=== PATIENT | male | born 1960 | race Caucasian/White ===

== ENCOUNTER → 2024-02-01 11:36 | Outpatient (REF) | payer OTHER, SELFPAY | LOC: RAD 11:36 | PROVIDERS: ATTENDING PHYSICIAN Physician Assistant; FAMILY PHYSICIAN Physician Assistant Medical | DX: M54.16 Radiculopathy, lumbar region (principal) | CPT/HCPCS: 72110 ==

== ENCOUNTER → 2024-03-21 07:07 | Outpatient (REF) | payer OTHER, SELFPAY | LOC: RAD 07:07 | PROVIDERS: ATTENDING PHYSICIAN Neurological Surgery; FAMILY PHYSICIAN Physician Assistant Medical | DX: M54.16 Radiculopathy, lumbar region (principal); M43.16 Spondylolisthesis, lumbar region | CPT/HCPCS: 72131; 72148 ==

== ENCOUNTER 2024-04-29 12:13 | Emergency (ER) | payer OTHER, SELFPAY ==
[2024-04-29 12:19] VITALS: BP 145/70
[2024-04-29 12:36] VITALS: BMI 27.4
[2024-04-29] MEDS: REGLAN 10 MG IV (13:20)
[2024-04-29] MEDS: NSS 500 IV (13:21)
[2024-04-29 13:32] LABS: % Basophils 0.2 % (0-2); % Immature Granulocytes 0.5 % (0-0.5); % Lymphocytes 6.7 % (20.5-51.1); % Monocytes 4.7 % (1.7-9.3); % Neutrophils 87.9 % (42.2-75.2); Absolute Immature Granulocytes 0.1 10^3/uL (0-0.05); Absolute Monocytes 0.7 10^3/uL (0.1-0.6); Absolute Neutrophils 13.5 10^3/uL (1.4-6.5); Hematocrit 37.4 % (39.0-52.0); Hemoglobin 12.9 g/dL (13.0-18.0); Mean Corp Hgb Conc. 34.5 g/dL (33.0-37.0); Mean Corpuscular Hgb 27.7 pg (27.0-31.0); Mean Corpuscular Volume 80.4 fL (80.0-94.0); Mean Platelet Volume 8.8 fL (7.4-10.4); Nucleated Red Blood Cells % 0 % (-); Platelet Count 305 10^3/uL (130-400); Red Blood Cell Count 4.65 10^6/uL (4.70-6.10); Red Cell Dist. Width 14.2 % (11.5-14.5); White Blood Cell Count 15.3 10^3/uL (4.8-10.8)
[2024-04-29 13:37] LABS: ALT (SGPT) 18 U/L (0-50); AST (SGOT) 25 U/L (17-59); Albumin 4.4 g/dl (3.5-5.0); Alkaline Phosphatase 93 U/L (38-126); Blood Urea Nitrogen 22 mg/dl (9-20); Calcium 9.7 mg/dl (8.4-10.2); Carbon Dioxide 28 mmol/L (22-30); Chloride 103 mmol/L (98-107); Estimated Creatinine Clearance 88 ml/min; Glucose 119 mg/dl (70-99); Potassium 4.4 mmol/L (3.5-5.1); Sodium 142 mmol/L (135-145); Total Bilirubin 0.5 mg/dl (0.2-1.3); Total Protein 6.7 g/dl (6.3-8.2); eGFR > 60.00
[2024-04-29 13:49] LABS: INR 1.01; PT 13.1 Sec (11.4-14.6)
[2024-04-29 13:50] LABS: APTT 31.4 Sec (23.4-35.0)
[2024-04-29 14:00] VITALS: BP 140/75
[2024-04-29 14:47] VITALS: BP 154/65
[2024-04-29 15:14] VITALS: BP 134/74
[2024-04-29] MEDS: TORADOL 30 MG IV (15:23)
[2024-04-29] MEDS: DILAUDID 1 MG IV (15:30)
[2024-04-29] MEDS: DECADRON 10 MG IV (15:43)
[2024-04-29] MEDS: ZOFRAN 4 MG IV (15:44)
[2024-04-29 15:59] LABS: COVID-19 Antigen Negative (Negative)
[2024-04-29 16:00] VITALS: BP 132/70
--- NOTE | 2024-04-29 16:56 | ED.GENMED ---
History of Present Illness
<Chidi Yu MD - Last Filed: 05/02/24 08:33>
General
Chief Complaint: Headache
Time Seen by Provider: 04/29/24 12:33
<Javid Alcocer Jr., PA-C - Last Filed: 05/01/24 15:40>
General
Source: patient
Exam Limitations: none
Nursing documentation reviewed up to this point in time: agreed with
History of Present Illness
History of Present Illness:
63-year-old male with past medical history of previous back surgery at [place] 4 weeks ago multiple neck surgeries in the past anxiety depression nerve stimulator to the right buttock presenting to the emergency department today with concerns of
headache back discomfort. Headache mainly last few hours associated nausea no vomiting no numbness or weakness no chest pain shortness of breath some light sensitivity.
Past History
<Chidi Yu MD - Last Filed: 05/02/24 08:33>
Past History
ED Past Medical History: Other (Pancreatitis) and Other (Patient has had degenerative disc disease of the neck, with resultant radiculopathy. The patient also has chronic pain issues.)
ED Past Surgical History: Other (The patient has had multiple cervical surgeries)
Social History
Tobacco: Smoker
Alcohol: Occasional
Personal:
Living: with family
Employment: Employed
Review of Systems
<Javid Alcocer Jr., PA-C - Last Filed: 05/01/24 15:40>
Review of Systems
Allergies reviewed?: Yes
All Other Systems: ROS reviewed and negative except as documented in HPI and ROS
Phy Exam
<Javid Alcocer Jr., PA-C - Last Filed: 05/01/24 15:40>
Physical Exam
Physical Exam:
GENERAL: Alert , in no apparent distress
EYE: pupils equal and reactive
NECK: Supple, no significant adenopathy.
ENT: o/p clr, mmm.
CARDIAC: Regular rate and rhythm .
LUNGS: Clear breath sounds bilaterally, no acute respiratory distress, no wheezes/rales/rhonchi
ABDOMEN: Soft, without focal tenderness, no r/g, no cvat
NEUROLOGICAL: Alert and oriented, no focal neuro deficits 5 out of 5 upper and lower extremity strength normal sensation when palpating bilaterally normal finger-nose and ceat-oe-tpep no pronator drift
SKIN: Warm and dry, skin intact.
MUSCULOSKELETAL: No edema, well perfused.
PSYCH: Normal and appropriate interaction.
Course
<Chidi Yu MD - Last Filed: 05/02/24 08:33>
Orders/Labs/Results
Orders:
Orders
04/29/24 12:44
Electrocardiogram (*1) Stat
Reason for Study: Other
Other Reason for Exam: Headache
CT Head & Neck Angio W/wo IV Urgent
Reason For Exam: severe GONSALEZ, for afew hours, worst of life
Cardiac Monitoring- Treatment ONCE
EKG- Treatment ONCE
0.9% Sodium Chloride 500 ml [Nss] 500 ml IV BOLUS
Metoclopramide [Reglan] 10 mg IV NOW STA
04/29/24 13:17
Complete Blood Count/With Diff Urgent
Comprehensive Metabolic Panel Urgent
Lyme Progressive Urgent
PTT Urgent
Prothrombin Time Urgent
04/29/24 15:20
Ketorolac [Toradol] 30 mg IV NOW STA
04/29/24 15:27
HYDROmorphone [Dilaudid] 1 mg IV NOW STA
04/29/24 15:31
Dexamethasone Sod Phosphate [Decadron] 10 mg IV NOW STA
04/29/24 15:38
COVID-19 Antigen Urgent
Source: Nasal Swab
Ondansetron Injectable [Zofran] 4 mg IV NOW STA
Abnormal Lab Results
04/29/24
13:17
WBC 15.3 H 10^3/uL
(4.8-10.8)
RBC 4.65 L 10^6/uL
(4.70-6.10)
Hgb 12.9 L g/dL
(13.0-18.0)
Hct 37.4 L %
(39.0-52.0)
Abs Immat Gran (auto) 0.1 H 10^3/uL
(0-0.05)
Absolute Neuts (auto) 13.5 H 10^3/uL
(1.4-6.5)
Absolute Lymphs (auto) 1.0 L 10^3/uL
(1.2-3.4)
Absolute Monos (auto) 0.7 H 10^3/uL
(0.1-0.6)
Neutrophils % 87.9 H %
(42.2-75.2)
Lymphocytes % 6.7 L %
(20.5-51.1)
BUN 22 H mg/dl
(9-20)
Glucose 119 H mg/dl
(70-99)
04/29/24 13:17
04/29/24 13:17
Vital Signs
Initial and Last Documented VS:
Initial Vital Signs
Temp Pulse Resp BP Pulse Ox
98.1 F 66 16 145/70 98
04/29/24 12:19 04/29/24 12:19 04/29/24 12:19 04/29/24 12:19 04/29/24 12:19
Last Documented Vital Signs
Temp Pulse Resp BP Pulse Ox
98.7 F 63 16 132/70 97
04/29/24 16:00 04/29/24 17:05 04/29/24 17:05 04/29/24 16:00 04/29/24 16:00
<Javid Alcocer Jr., PA-C - Last Filed: 05/01/24 15:40>
Orders/Labs/Results
Orders:
Orders
04/29/24 12:44
Electrocardiogram (*1) Stat
Reason for Study: Other
Other Reason for Exam: Headache
CT Head & Neck Angio W/wo IV Urgent
Reason For Exam: severe GONSALEZ, for afew hours, worst of life
Cardiac Monitoring- Treatment ONCE
EKG- Treatment ONCE
0.9% Sodium Chloride 500 ml [Nss] 500 ml IV BOLUS
Metoclopramide [Reglan] 10 mg IV NOW STA
04/29/24 13:17
Complete Blood Count/With Diff Urgent
Comprehensive Metabolic Panel Urgent
Lyme Progressive Urgent
PTT Urgent
Prothrombin Time Urgent
04/29/24 15:20
Ketorolac [Toradol] 30 mg IV NOW STA
04/29/24 15:27
HYDROmorphone [Dilaudid] 1 mg IV NOW STA
04/29/24 15:31
Dexamethasone Sod Phosphate [Decadron] 10 mg IV NOW STA
04/29/24 15:38
COVID-19 Antigen Urgent
Source: Nasal Swab
Ondansetron Injectable [Zofran] 4 mg IV NOW STA
Abnormal Lab Results
04/29/24
13:17
WBC 15.3 H 10^3/uL
(4.8-10.8)
RBC 4.65 L 10^6/uL
(4.70-6.10)
Hgb 12.9 L g/dL
(13.0-18.0)
Hct 37.4 L %
(39.0-52.0)
Abs Immat Gran (auto) 0.1 H 10^3/uL
(0-0.05)
Absolute Neuts (auto) 13.5 H 10^3/uL
(1.4-6.5)
Absolute Lymphs (auto) 1.0 L 10^3/uL
(1.2-3.4)
Absolute Monos (auto) 0.7 H 10^3/uL
(0.1-0.6)
Neutrophils % 87.9 H %
(42.2-75.2)
Lymphocytes % 6.7 L %
(20.5-51.1)
BUN 22 H mg/dl
(9-20)
Glucose 119 H mg/dl
(70-99)
04/29/24 13:17
04/29/24 13:17
Vital Signs
Initial and Last Documented VS:
Initial Vital Signs
Temp Pulse Resp BP Pulse Ox
98.1 F 66 16 145/70 98
04/29/24 12:19 04/29/24 12:19 04/29/24 12:19 04/29/24 12:19 04/29/24 12:19
Last Documented Vital Signs
Temp Pulse Resp BP Pulse Ox
98.7 F 63 16 132/70 97
04/29/24 16:00 04/29/24 17:05 04/29/24 17:05 04/29/24 16:00 04/29/24 16:00
<Javid Alcocer Jr., PA-C - Last Filed: 05/01/24 15:40>
MDM/Problems Addressed
MDM/Problems Addressed:
63-year-old male presenting to the emergency department with concerns of headache described as mainly frontal with some radiation to the back of his head some mild back discomfort but is unsure if this is consistent with his previous back pain has
had over the past few months and had back surgery 4 weeks ago. Upon arrival is afebrile in no obvious distress. Concerning the patient claims that it is the worst headache of his life though was not abrupt in onset or thunderclap has been
gradually worsening throughout the day CT scan was obtained as well as angiogram that did not show any emergent findings. Patient was given medication with improving symptoms. No neurologic symptoms consistent with any secondary process.
Additional testing for Lyme was sent as well.
<Javid Alcocer Jr., PA-C - Last Filed: 05/01/24 15:40>
*Critical Care Note
Total Time (30-74mins, 75-104mins- exclusive of procedures): Not Applicable
<Chidi Yu MD - Last Filed: 05/02/24 08:33>
Update Note
Update Note:
Pt reports improvement in symptoms after treatment. Pt is otherwise afebrile, hemodynamically stable and neurologically intact, walking w steady gait independently, at time of discharge, to the care of his family.
ED Attending Note
<Chidi Yu MD - Last Filed: 05/02/24 08:33>
-
Portions of this chart may have been created with voice recognition software.� Occasional wrong word or��sound alike� substitutions may have occurred due to the inherent limitations of voice recognition software.
Discharge Plan
Departure
Patient Disposition: Home (Routine Discharge)
Date of Disposition: 04/29/24
Time of Disposition: 16:56
Patient with high blood pressure during this ER visit?: Yes
Discharge Problem:
Headache
Instructions: Headache, Adult (DC)
Prescriptions:
New
oxycodone-acetaminophen [Percocet] 5-325 mg Tablet
1 tab PO Q6HPRN PRN (Reason: pain) Qty: 12 0RF
ondansetron 4 mg Tablet,Disintegrating
4 mg PO TIDPRN PRN (Reason: nausea/vomiting) Qty: 12 0RF
No Action
methadone 10 MG tablet
15 mg PO BID
quetiapine 100 MG tablet
400 mg PO HS
oxycodone 15 MG tablet
60 mg PO .DAILY@1700
Patient Comments:
PER PHARMACY 20MG 1-2 TABS TID #165 PER PATIENT HE IS TAKING 5 IN A DAY- HE TAKES 2 IN THE MORNING AND 3 AFTER WORK
alprazolam 0.5 MG tablet
0.5 mg PO DAILYPRN PRN (Reason: anxiety)
oxycodone 10 MG tablet
40 mg PO .DAILY
Patient Comments:
PER PHARMACY 20MG 1-2 TABS TID #165 PER PATIENT HE IS TAKING 5 IN A DAY- HE TAKES 2 IN THE MORNING AND 3 AFTER WORK
sulfamethoxazole-trimethoprim 1 TABLET tablet
1 tab PO BID Qty: 10 0RF
Referrals:
Saumya Hdez PA-C [Family Provider] -
Activity Restrictions/Additional Instructions:
As discussed, please follow-up with your primary care physician and/or surgeon for further evaluation and treatment. Please return to ED with worsening symptoms. Your prescriptions have been sent electronically to [facility] pharmacy in [facility]
Interventions
Interventions:
*Risk Screen - Suicide Last Done: 04/29/24 12:19
*General Assessment Last Done: 04/29/24 12:19
*Neglect/Abuse Screening Last Done: 04/29/24 12:19
ED- Fall Risk Assessment Last Done: 04/29/24 12:37
*ED COVID-19 Vaccine History Last Done: 04/29/24 12:36
*Nursing Disposition Last Done: 04/29/24 17:48
ED- Neurological Assessment Last Done: 04/29/24 12:37
Discharge Date and Time
Discharge Date/Time: 04/29/24 17:49
Print Language: FRENCH
[2024-04-30 12:14] LABS: Lyme Antibody Screen, EIA Presump. Positive (Negative)
[2024-05-02 17:20] LABS: Lyme Ab Western Blot IgG Negative (Negative); Lyme Ab Western Blot IgM Negative (Negative)
== END 2024-04-29 17:49 | disposition home or self-care (01) ==
LOC: EMR 12:13
PROVIDERS: Physician Assistant; EMERGENCY PHYSICIAN Emergency Medicine; FAMILY PHYSICIAN Physician Assistant Medical
DX: R51.9 Headache, unspecified (principal); F41.8 Other specified anxiety disorders; F17.200 Nicotine dependence, unspecified, uncomplicated
CPT/HCPCS: 99284; 96374; 96375; 96361; 70496; 70498; 80053; 85025; 85610; 85730; 86617; 86618; 87811; 93005; Q9967

== ENCOUNTER → 2024-05-15 07:25 | Outpatient (REF) | payer OTHER, SELFPAY | LOC: RAD 07:25 | PROVIDERS: ATTENDING PHYSICIAN Neurological Surgery; FAMILY PHYSICIAN Physician Assistant Medical | DX: Z98.1 Arthrodesis status (principal) | CPT/HCPCS: 72100 ==

== ENCOUNTER → 2025-01-24 10:06 | Outpatient (REF) | payer OTHER, SELFPAY | LOC: RAD 10:06 | PROVIDERS: ATTENDING PHYSICIAN Nurse Practitioner; FAMILY PHYSICIAN Physician Assistant Medical | DX: M25.522 Pain in left elbow (principal) | CPT/HCPCS: 73080 ==

== ENCOUNTER 2025-05-06 21:34 | Observation (INO) | payer OTHER, SELFPAY ==
[2025-05-06] VITALS (11 sets, daily range): BP systolic 117–167; BP diastolic 73–97; PULSE 73–80; BMI 29.6; BMI 27.9
[2025-05-06 15:59] LABS: ALT (SGPT) 27 U/L (0-50); AST (SGOT) 23 U/L (17-59); Albumin 4.2 g/dl (3.5-5.0); Alkaline Phosphatase 75 U/L (38-126); Blood Urea Nitrogen 21 mg/dl (9-20); Calcium 9.1 mg/dl (8.4-10.2); Carbon Dioxide 24 mmol/L (22-30); Chloride 105 mmol/L (98-107); Glucose 143 mg/dl (70-99); Potassium 4.1 mmol/L (3.5-5.1); Sodium 136 mmol/L (135-145); Total Protein 6.5 g/dl (6.3-8.2); eGFR > 60.00
[2025-05-06 17:40] LABS: Hematocrit 38.6 % (39.0-52.0); Hemoglobin 12.9 g/dL (13.0-18.0); Mean Corp Hgb Conc. 33.4 g/dL (33.0-37.0); Mean Corpuscular Volume 85.2 fL (80.0-94.0); Nucleated Red Blood Cells % 0 % (-); Platelet Count 282 10^3/uL (130-400); Red Cell Dist. Width 14.0 % (11.5-14.5)
[2025-05-06 18:02] LABS: Troponin I < 0.012 ng/ml
--- NOTE | 2025-05-06 19:30 | EDRN ---
Report recived, introduced myself to patient and updated them on plan to stay, patient aware as is , otherwise resting comfortably
--- NOTE | 2025-05-06 19:49 | ED.GENMED ---
History of Present Illness
General
Chief Complaint: Fainting/Passed Out
Source: patient and spouse
Time Seen by Provider: 05/06/25 17:15
History of Present Illness
History of Present Illness:
Note:
CHIEF COMPLAINT(S)
Loss of consciousness and falls resulting in head laceration.
HISTORY OF PRESENT ILLNESS
The patient is a 64-year-old male who presented after experiencing a loss of consciousness and a fall, resulting in a head laceration. This incident ortega his fourth fall. The patient described walking to the kitchen when he lost consciousness, and
upon awakening, he found himself on the floor with blood present. He reported that he felt unwell for the past two days, with a notably decreased appetite. He stated, 'I wasnt feeling good for the last two days,' acknowledging a lack of appetite
since the previous Tuesday and Tuesday. He experienced nausea upon eating but did not vomit. He denied having a fever, despite a noted elevated white blood cell count. He also denied symptoms such as cough, congestion, abdominal pain, diarrhea,
vomiting, dysuria, and difficulty urinating. Earlier falls did not involve a loss of consciousness, except during one incident similar to todays. The patient recalled his previous falls near a pool and in the yard but managed to prevent injury
during those events. On the day of the visit, he felt well before the episode and decided to eat, when he suddenly passed out. Notably, a CT scan showed no signs of acute injury or bleeding.
Additional history by spouse
Spouse states that the patient has had falls in the past or mechanical but this time the patient was unconscious and unprovoked.
SOCIAL HISTORY
The patient reported minimal smoking, approximately two cigarettes per day, spouse states that it is more than 2 cigarettes/day
REVIEW OF SYSTEMS
- Constitutional: Reports decreased appetite and unwell feeling for two days.
- Neurological: Reports loss of consciousness with a fall resulting in a head laceration.
- Gastrointestinal: Reports nausea without vomiting upon eating.
- Respiratory: Denies shortness of breath or chest pain.
- Cardiovascular: Denies heart palpitations or known heart problems.
PHYSICAL EXAM
General: Alert, no acute distress.
Skin: Laceration present on the head. 2 cm to the right posterior scalp
Neck: Supple, trachea midline.
Eye, Ears, Nose, Mouth, and Throat: Oral mucosa moist. Right periorbital hematoma noted
Cardiovascular: Normal peripheral perfusion, No edema.
Respiratory: Respirations are non-labored.
Gastrointestinal: Abdomen nondistended.
Back: Normal range of motion, Normal alignment.
Musculoskeletal: Normal ROM, normal strength.
Neurological: Alert and oriented to person, place, time, and situation, No focal neurological deficit observed.
Psychiatric: Cooperative, appropriate mood & affect.
PLAN
- The laceration will be treated with nunu for closure.
- Continuous monitoring, including vital signs and review of previous incidents, is advised to determine the underlying cause of the loss of consciousness.
- Further evaluation to understand the elevated white blood cell count, exploring potential infections or other causes. A chest examination might be considered.
- Consider fall precautions and possible intervention to prevent future falls.
DIFFERENTIAL DIAGNOSIS
The Differential Diagnosis includes, in no particular order and is not limited to:
1. Syncope
2. Seizure
3. Orthostatic Hypotension
4. Cardiac Arrhythmia
5. Transient Ischemic Attack
6. Infection (e.g., systemic or local)
7. Medication Side Effects
8. Dehydration
9. Electrolyte Imbalance
10. Vestibular Disorder
EKG
My independent EKG interpretation is:
- Rhythm: Normal sinus rhythm
- Heart Rate: 70 bpm
- [place]: Normal axis
- Intervals: Normal intervals
- Abnormalities: No ischemic changes noted
Disposition:
SUMMARY OF ENCOUNTER
The patient is a 64-year-old male who presented to the emergency department after experiencing multiple syncopal events at home, resulting in falls. He sustained a laceration to the back of his head. The patient reports three episodes of syncope,
one occurring from a standing position and another while seated. A Computed Tomography (CT) scan of the head showed no acute intracranial hemorrhage, and the patient is currently in normal sinus rhythm. A complete blood count (CBC) revealed
leukocytosis with a left shift, and the patient is mildly anemic with a hemoglobin level of 12.9 g/dL, consistent with previous readings. Chemistry results revealed normal sodium, potassium, and liver function tests. A chest X-ray displayed no acute
infiltrates. Given the presentation of recurrent syncopal episodes, the patient is admitted for further monitoring and evaluation.
DISPOSITION
Admit.
ASSESSMENT
The patient exhibited multiple syncopal events with a normal CT scan of the head and accompanying leukocytosis, raising concerns about potential underlying causes requiring hospital admission for monitoring.
PLAN
The patient will be admitted for close observation due to recurrent syncope. Blood cultures and lactic acid levels will be checked to evaluate the cause of leukocytosis and explore potential underlying infections or etiology.
INDEPENDENT REVIEW OF LABS AND INTERPRETATION OF TESTS
- My independent review of CBC indicates leukocytosis with a left shift of 81% and mild anemia (hemoglobin 12.9 g/dL), consistent with prior results.
- My independent review of CT head interpretation indicates no acute intracranial abnormality.
- My independent review of chemistry reveals normal sodium and potassium levels and normal liver function tests.
- My independent review of the chest X-ray shows no acute infiltrates.
MEDICAL DECISION MAKING
- Number and Complexity of Problems Addressed: Chronic conditions affecting care are recurrent syncopal episodes and a head laceration. Differential Diagnosis includes syncope, seizure, orthostatic hypotension, cardiac arrhythmia, transient ischemic
attack, infection, medication side effects, dehydration, electrolyte imbalance, and vestibular disorder.
- Data:
- Category 1: My independent interpretation of the CT head and chest X-ray.
- Risk:
- Consideration of Admission/Observation due to recurrent syncopal events and accompanying leukocytosis. The patients work-up did not reveal acute life-threatening processes, but his symptoms and the risk of complications justify admission for close
monitoring.
DIAGNOSIS
1. Syncope (ICD-10: R55)
2. Leukocytosis (ICD-10: D72.829)
Past History
Past History
ED Past Medical History: Other (Pancreatitis) and Other (Patient has had degenerative disc disease of the neck, with resultant radiculopathy. The patient also has chronic pain issues.)
ED Past Surgical History: Other (The patient has had multiple cervical surgeries)
Social History
Tobacco: Smoker
Alcohol: Occasional
Personal:
Living: with family
Employment: Employed
Phy Exam
Physical Exam
Physical Exam:
.
Course
Orders/Labs/Results
Orders:
Orders
05/06/25 15:07
CT Head W/o Iv Contrast Urgent
Comment:
Reason For Exam: syncope x3 times and hit back of head
05/06/25 15:11
Electrocardiogram (*1) Urgent
Reason for Study: Syncope
EKG- Treatment ONCE
05/06/25 15:28
Comprehensive Metabolic Panel Urgent
05/06/25 17:24
Complete Blood Count/With Diff Urgent
Troponin I Urgent
05/06/25 18:08
Orthostatic VS- Treatment ONCE
05/06/25 18:11
Urinalysis Reflex To Culture Urgent
Date Specimen was Collected: 05/06/25
Time Specimen was Collected: 18:29
CR Chest - 2 Views Urgent
Comment:
Reason For Exam: syncope
05/06/25 19:43
Lactic Acid Q4H
Comment: CANCEL 2nd LACTIC ACID IF 1st LACTIC ACID IS LESS THAN 2
Blood Culture Q30M
CECE Source: Blood/Venous
Specimen Description:
Blood Culture Q30M
CECE Source: Blood/Venous
Specimen Description:
05/06/25 20:42
Admit/Transfer Patient As Directed
Co-Sign Provider:
Level of Care: Observation services
Assign to:: Telemetry
Physician / Group: walt
Diagnosis: syncope
Reason for Telemetry: Syncope
Date to Stop Telemetry: 05/08/25
Time to Stop Telemetry: 11:00
PRN Pain Medication Management As Directed
May give lesser potent ordered pain med per pt: Yes
preference::
Protocol:: Medication orders for pain may be administered in a
manner that supports deferring to patient preference
when the pt is:
- Requesting an ordered lesser potent pain medication.
Least to most potent pain medications are defined
as: acetaminophen < NSAID < tramadol < opioids
(morphine, oxycodone, hydromorphone).
- Requesting a lesser dose of the same medication IF
ORDERED.
- Requesting a less intrusive route of administration
if both routes are prescribed by the provider (PO <
IV).
05/06/25 20:43
Code Status As Directed
Resuscitation Status: Full Code
05/06/25 20:46
COVID-19 Antigen Urgent
Source: Nasal Swab
05/06/25 23:45
Lactic Acid Q4H
Comment: CANCEL 2nd LACTIC ACID IF 1st LACTIC ACID IS LESS THAN 2
05/08/25 11:00
DC Protocol for Telemetry ONCE
Abnormal Lab Results
05/06/25 05/06/25
15:28 17:24
WBC 14.8 H 10^3/uL
(4.8-10.8)
RBC 4.53 L 10^6/uL
(4.70-6.10)
Hgb 12.9 L g/dL
(13.0-18.0)
Hct 38.6 L %
(39.0-52.0)
Abs Immat Gran (auto) 0.1 H 10^3/uL
(0-0.05)
Absolute Neuts (auto) 12.1 H 10^3/uL
(1.4-6.5)
Neutrophils % 81.8 H %
(42.2-75.2)
Lymphocytes % 12.8 L %
(20.5-51.1)
BUN 21 H mg/dl
(9-20)
Glucose 143 H mg/dl
(70-99)
05/06/25 17:24
05/06/25 15:28
Vital Signs
Initial and Last Documented VS:
Initial Vital Signs
Temp Pulse Resp BP Pulse Ox
97.9 F 82 18 117/73 96
05/06/25 15:08 05/06/25 15:08 05/06/25 15:08 05/06/25 15:08 05/06/25 15:08
Last Documented Vital Signs
Temp Pulse Resp BP Pulse Ox
97.6 F 75 15 155/82 100
05/06/25 17:33 05/06/25 19:30 05/06/25 19:13 05/06/25 19:14 05/06/25 19:52
Procedures
Laceration Closure
Right Scalp:
Status of Wound: clean
Size of Wound in cm: 2
Description of Wound Edges: sharp
Preparation: cleaned with saline
Type of Closure: single layer closure
Skin Closure Material: skin nunu
Number of sutures: 3
*Pulse Oximetry
SaO2: 100
Oxygen Mode of Delivery: Room air
Patient hypoxic: no
*Critical Care Note
Total Time (30-74mins, 75-104mins- exclusive of procedures): Not Applicable
ED Attending Note
-
Portions of this chart may have been created with voice recognition software.� Occasional wrong word or��sound alike� substitutions may have occurred due to the inherent limitations of voice recognition software.
Discharge Plan
Departure
Patient Disposition: Admit
Date of Disposition: 05/06/25
Time of Disposition: 19:51
Admit to: Telemetry
Presentation/result/management discussed w/ accepting MD/DO: Hospitalist
Discharge Problem:
Syncope, Leukocytosis
Prescriptions:
No Action
methadone 10 MG tablet
15 mg PO BID
acetaminophen [Tylenol] 325 mg Tablet
650 mg PO Q6HPRN PRN (Reason: mild pain)
alprazolam [Xanax] 1 mg Tablet
1 mg PO TID
[place] 324 mg Tablet, Effervescent
324 ea PO DAILYPRN PRN (Reason: stomach issuses)
oxycodone 20 mg Tablet
40 mg PO BID
Referrals:
Saumya Hdez PA-C [Family Provider, Family Practice]
Interventions
Interventions:
*Risk Screen - Suicide Last Done: 05/06/25 15:08
*General Assessment Last Done: 05/06/25 15:08
*Neglect/Abuse Screening Last Done: 05/06/25 15:08
*ED- Fall Risk Assessment Last Done: 05/06/25 17:33
*ED COVID-19 Vaccine History Last Done: 05/06/25 17:33
ED- Cardiac Assessment Last Done: 05/06/25 17:33
ED- Neurological Assessment Last Done: 05/06/25 17:33
Discharge Date and Time
Print Language: ICELANDIC
--- NOTE | 2025-05-06 20:44 | HPS.HSE ---
Family Physician
-
Family Physician: Saumya Hdez
Chief Complaint
-
syncope
History of Present Illness
64-year-old male past medical history of degenerative disc disease with nerve stimulator, splenic rupture, presenting with multiple syncopal episodes today. He had 3 syncopal episodes in the span of 2 hours today. They were not associate with
dizziness or prodrome. He did hit his head with a laceration on the head and saw blood on the floor. He has been feeling unwell for the past 2 days with sore throat some minor cough and feeling little flushed in the face which is sometimes normal
for him. He has been eating and drinking less in the past 2 days. Denies fevers or chills. Denies vomiting or diarrhea or abdominal pain. Denies urinary symptoms.
He also had a few falls last week but were not associated with syncope.
Denies any prior history of cardiac disease.
Smokes occasionally. Drinks alcohol occasionally.
No family history of heart disease.
Medical History
Past Medical History
Past Medical History: Reports Other (degenerative disc disease with nerve stimulator, splenic rupture)
Past Surgical History: Reports None
Social History
Tobacco: Smoker
Alcohol: Occasional
Drug: None
Family History
Family History: Not pertinent
Allergies / Home Medications
Allergies reflects when Allergies were last updated in [employer].
Home Medications with original date entered in [employer]
Allergy/Medication List:
Allergies
Allergy/AdvReac Type Severity Reaction Status Date / Time
Penicillins Allergy Unknown Verified 05/06/25 15:08
Home Medications
methadone 10 mg tablet 15 mg PO BID 08/14/19
acetaminophen 325 mg tablet (Tylenol) 650 mg PO Q6HPRN PRN mild pain 05/06/25
alprazolam 1 mg tablet (Xanax) 1 mg PO TID 05/06/25
aspirin-sodium bicarbonate-citric acid 324 mg effervescent tablet 324 ea PO DAILYPRN PRN stomach issuses 05/06/25
oxycodone 20 mg tablet 40 mg PO BID 05/06/25
Review of Systems
-
History Source: Patient
A 12 point ROS was completed and negative except as noted: Yes
Physical Exam
Vital Signs
Vital Signs
Temp Pulse Resp BP Pulse Ox
97.6 F 75 15 155/82 100
05/06/25 17:33 05/06/25 19:30 05/06/25 19:13 05/06/25 19:14 05/06/25 19:52
Physical Exam
General: Well Developed, Well Nourished and No Apparent Distress
HEENT: NormoCephalic, Moist mucous membranes and Atraumatic
Respiratory: Clear
Cardiac: S1/S2 and Regular Rhythm; No Murmur or Rub
GI: Soft, Non Tender, Non Distended and Normal Bowel Sounds; No Organomegaly
Rectal: Deferred by Provider
Musculoskeletal: No Clubbing, No Cyanosis and No Edema
Skin: No Rash
Neuro: Nonfocal/grossly intact
Laboratory Results
-
05/06/25 17:24
05/06/25 15:28
Laboratory Results
Lactic Acid 1.8 mmol/L (0.7-2.0) 05/06/25 19:43
Total Bilirubin 0.4 mg/dl (0.2-1.3) 05/06/25 15:28
AST 23 U/L (17-59) 05/06/25 15:28
ALT 27 U/L (0-50) 05/06/25 15:28
Alkaline Phosphatase 75 U/L (38-126) 05/06/25 15:28
Troponin I < 0.012 ng/ml 05/06/25 17:24
Data Reviewed
-
Lab Data: Labs Reviewed by me
Old Records: Reviewed
Impression/Plan
-
IMPRESSION:
PLAN:
# Syncopal episodes without prodrome concerning for cardiac etiology
-Does not seem to be related to hypovolemia from viral URI blood pressure 150s
-EKG shows normal sinus rhythm
-CT head shows no acute intracranial abnormality
- Check orthostatic vital signs
- Telemetry
- Check echo
- May need outpatient Holter monitor
# Leukocytosis/sore throat secondary to viral URI
-Has enlarged lymph node in the left neck
- Chest x-ray unremarkable
- Check COVID
Degenerative disc disease with prior nerve stimulator
- Continue Tylenol, methadone, oxycodone
History of splenic rupture
Anxiety
- Continue Xanax
Occasional smoker
Full code
DVT prophylaxis�heparin
Regular diet
--- NOTE | 2025-05-06 21:17 | EDRN ---
A sound was heard from patient's room, patient's had unhooked patient for him to walk into the restroom to have a bowl movement and stumbled when getting up, did not fall or pass out, no injury noted, informed them he needs to use the [facility]
and them not unhook him on their own, made sure patient has tactical debriefer socks on and [facility] is in reach, hooked patient back up to monitor, vss
[2025-05-06 21:55] LABS: COVID-19 Antigen Negative (Negative)
--- NOTE | 2025-05-06 22:00 | EDRN ---
Patient was asking about his meds, i spoke with pharmacy to verify what meds he is on at home since it was different from the list we have here, updated his list in the computer and spoke with the provider covering to inform them.
[2025-05-06] MEDS: ROXICODONE 20 MG PO (23:10)
[2025-05-06] MEDS: XANAX 1 MG PO (23:10)
[2025-05-07] VITALS (7 sets, daily range): BP systolic 135–162; BP diastolic 69–81; PULSE 63–70
[2025-05-07] MEDS: TYLENOL 650 MG PO ×3 (01:47→17:07)
[2025-05-07] MEDS: ROXICODONE 20 MG PO ×3 (05:08→19:17)
[2025-05-07 08:17] LABS: Hematocrit 39.9 % (39.0-52.0); Hemoglobin 13.1 g/dL (13.0-18.0); Mean Corp Hgb Conc. 32.8 g/dL (33.0-37.0); Mean Corpuscular Volume 85.6 fL (80.0-94.0); Nucleated Red Blood Cells % 0 % (-); Platelet Count 299 10^3/uL (130-400); Red Cell Dist. Width 14.0 % (11.5-14.5)
[2025-05-07] MEDS: DOLOPHINE 15 MG PO ×2 (08:24→20:05)
[2025-05-07] MEDS: XANAX 1 MG PO ×3 (08:24→21:05)
[2025-05-07 09:53] LABS: ALT (SGPT) 25 U/L (0-50); AST (SGOT) 21 U/L (17-59); Albumin 4.1 g/dl (3.5-5.0); Alkaline Phosphatase 77 U/L (38-126); Blood Urea Nitrogen 16 mg/dl (9-20); Calcium 9.0 mg/dl (8.4-10.2); Carbon Dioxide 26 mmol/L (22-30); Chloride 105 mmol/L (98-107); Estimated Creatinine Clearance 98 ml/min; Glucose 127 mg/dl (70-99); Potassium 4.4 mmol/L (3.5-5.1); Sodium 138 mmol/L (135-145); Total Protein 6.3 g/dl (6.3-8.2); eGFR > 60.00
--- NOTE | 2025-05-07 11:31 | CM ---
Reviewed Chart and met with patient at bedside. IA completed, OBS form given and placed on chart.Lives with and son in 3 story home with 1 step at the back entrance. BR on 1st floor. No hx of HC or SNF. DME in the home, not in use, [employer]. Pt is independent with ADLs and IADLs. No insecurities identified. Confirmed PCP, Rx,insurance and drug coverage.
PCP:Saumya Guthrie
Rx.[facility]
Plan: home, no needs
--- NOTE | 2025-05-07 13:36 | W.PN.HOSP.TC ---
Addendum entered and electronically signed by Alber Mars MD 05/07/25 16:06:
Seen and examined the patient. Agree with the plan formulated by the resident. Discussed. See changes in my documentation
63-year-old with syncope. Had 3 syncopal episodes in the span of 2 hours patient had some sore throat and minor cough in the past couple of days. Patient stated that a few days 2 weeks ago he had an episode where he was trying to climb into a bed
and missed and had a fall back states that he did not lose consciousness or hit his head. Another time he lost balance and fell into the small 50 pound but again did not lose consciousness. Yesterday patient was at home was at kitchen trying
to break make breakfast and he passed out
He notices that he saw some blood on the floor and he was sitting on the couch and he does not know how he got to the couch. He stood up and seem to have passed out again and was sitting on the floor. And yet a third episode where he passed out
and had no recollection and was sitting again on the couch. was not present at home.
Head CT-no acute intracranial abnormality
Chest x-ray unremarkable
EKG-sinus rhythm QTc 443
On examination nunu in the back of the head
Reflexes are normal bilaterally good strength bilaterally, good strength
Cardiovascular system S1-S2 appreciated, short systolic murmur at apex
Abdomen soft and nontender
# Syncopal episodes without prodrome
Monitor on telemetry
EKG sinus rhythm
Head CT without any acute changes
Check orthostatics
Check echo
Check EEG and MRI of the brain with and without contrast
Neurology and cardiology evaluations
# Leukocytosis
Recent URI
# DJD with prior nerve stimulator-on methadone and oxycodone as outpatient
# History of splenic rupture
# Anxiety-on as needed Xanax
# Occasional smoker
# DVT prophylaxis-Lovenox
# Full code
Discussed with on the phone
Part of this note was created using voice recognition system. Occasional wrong word or��sound alike� substitutions may have inadvertently occurred due to the inherent limitations of voice recognition software. If noted kindly bring it to my
attention for correction.
Original Note:
Today's Communication/Plan
-
Orthostatic blood pressures x 2 have been negative.
Neurology consult and work-up with brain MRI and EEG (both pending).
Ativan 1 mg p.o. ordered for brain MRI. Patient states he had significant claustrophobia with a prior MRI. His recommended eye mask and music.
Cardiology consult and further workup with echo (pending).
Assessment / Plan
Assessment / Plan
Impression
64-year-old male past medical history of degenerative disc disease with nerve stimulator, splenic rupture, presenting with multiple syncopal episodes today. He had 3 syncopal episodes in the span of 2 hours today. They were not associate with
dizziness or prodrome. He did hit his head with a laceration on the head and saw blood on the floor. He has been feeling unwell for the past 2 days with sore throat some minor cough and feeling little flushed in the face which is sometimes normal
for him. He has been eating and drinking less in the past 2 days. Denies fevers or chills. Denies vomiting or diarrhea or abdominal pain. Denies urinary symptoms.
Plan
# Syncopal episodes without prodrome concerning for cardiac or neuro etiology
-Does not seem to be related to hypovolemia from viral URI blood pressure 150s
EKG shows normal sinus rhythm and shifted axis from right to left compared to EKG [address] head shows no acute intracranial abnormality
orthostatic vital signs negative x 2
Neurology consulted
� Brain MRI pending
� Ativan 1 mg p.o. ordered on-call for brain MRI, given patient's worry about intense claustrophobia, which occurred during a prior MRI
� EEG pending
Cardiology consulted
- echo: Pending
- Telemetry with no acute finding
- If workup is unrevealing, will recommend 30-day MCOT monitoring
# Leukocytosis/sore throat secondary to viral URI�resolved
Has enlarged lymph node in the left neck
Chest x-ray unremarkable
COVID negative
Degenerative disc disease with prior nerve stimulator
- Continue Tylenol, methadone, oxycodone
History of splenic rupture
Anxiety
- Continue Xanax
Occasional smoker
Full code
DVT prophylaxis�heparin
Regular diet
Anticipated Discharge: > 48 hours
Subjective/Interval History
-
Date of Service: May 07, 2025
No acute events overnight.
Questions about his syncope and falls were asked. He denied incontinence of of bowel or bladder during his syncopal episodes. For the 3 syncopal episodes on 05/06/2020 5 AM, he did not have any prodrome or recall what happened immediately after.
For example he regained consciousness and did not not know why he saw a pool of blood on the ground. He also hit his head during one of the single episodes.
Over the last few weeks, he had 2 incidents. He denied losing consciousness, so it seems that he lost his balance, or another words fell/tripped. His was able to provide a witness account for those 2. During one of them, he lifted a leg to
get into bed, and he fell and landed on his back on the ground. And the other 1, he found to his fish pond, which had knee-high water, and his helped for him out. He denied hitting his head during the earlier 2 falls.
He denied palpitations, heart racing, funny feeling in his head.
Objective Data
-
Labs:
Laboratory Results
05/07/25
07:13
WBC 9.3
Hgb 13.1
Hct 39.9
Plt Count 299
Sodium 138
Potassium 4.4
Chloride 105
Carbon Dioxide 26
BUN 16
Creatinine 0.8
Glucose 127 H
Calcium 9.0
Total Bilirubin 0.5
AST 21
ALT 25
Alkaline Phosphatase 77
Vital Signs:
Vital Signs
Temp Pulse Resp BP Pulse Ox
98.6 F 64 12 155/78 95
05/07/25 11:00 05/07/25 11:00 05/07/25 11:00 05/07/25 11:00 05/07/25 11:00
I&O
05/06/25 05/07/25 05/08/25
06:59 06:59 06:59
Intake Total 480 / 480
Balance 480 / 480
Review of Systems
-
History Source: Patient
EENT: Reports Decreased Vision (Decreased vision for 2 to 4 weeks); Denies Hearing Loss
Respiratory: Reports No Symptoms
Cardiac: Reports No Symptoms
Abdomen/GI: Reports No Symptoms
Genitourinary: Denies Incontinence
Musculoskeletal: Reports Joint Pain (Chronic spine pain)
Skin: Reports No Symptoms
Neuro: Reports Headache (Bilateral, frontal; separate in location from posterior scalp laceration)
Physical Exam
-
General: Well Developed, Well Nourished, No Apparent Distress and Comfortable
HEENT: Normocephalic, Atraumatic, Moist Mucous Membranes, PERRLA (Equal and dilated pupils), Nose Appears Normal and Ears Appear Normal
Respiratory: Clear to Auscultation
Cardiac: Regular Rhythm, S1/S2 and Murmur (Soft murmur)
GI: Soft, Nontender, Normal Bowel Sounds and Distended
Musculoskeletal: No Clubbing, No Cyanosis and No Edema
Skin: Warm and Dry
Neuro: Awake, Alert and Oriented
Psych: Calm
Data Reviewed
-
Total Time Spent with Patient (in minutes): 35
Diagnostic Radiology: Report Reviewed by me
CT Scan: Report Reviewed by me
Labs: Labs Reviewed by me
--- NOTE | 2025-05-07 14:06 | CON.NEURO ---
Addendum entered and electronically signed by Jarrett Snyder MD 05/07/25 17:29:
Studies reviewed.
I have personally examined the patient. I reviewed and agree with the [employer] OPERATOR's Note.
My addenda:
Awake, alert, interactive. No acute distress.
Speech intact.
Follows 2-step requests w/o difficulty. No tremor.
Extra-ocular movements grossly intact.
Facial movements full and symmetric. Hearing intact to normal conversational volume.
Normal UE movements bilaterally.
Neck: full ROM.
Chest: no dyspnea
Heart: no JVD
Ext: (-) Clubbing, (-) Cyanosis, (-) Edema
IMPRESSIONS/RECOMMENDATIONS:
Abrupt onset of worsening numbers of falls
Most likely due to orthostasis, not yet demonstrated by testing; DDX toxic-metabolic encephalopathy
follow orthostatic BPs
consider cardiac evaluation as 90% of syncope is cardiac in nature
check blood work for metabolic causes
will follow MRI of brain results
D/W patient / family via phone
All questions answered.
Will continue to follow pending results.
Original Note:
Neuro Assessment/Plan
Assessment
64 year-old right-handed male with past medical history of degenerative disc disease with nerve stimulator, s/p lumbar fusion, chronic pain requiring narcotics, type 2 diabetes mellitus, hypercholesterolemia, and current smoker presented to [facility] on
05/06/2025 for evaluation of multiple syncopal episodes and falls.
Head CT: No acute intracranial abnormality.
TTE:
1. Left ventricular ejection fraction is normal with an ejection fraction of 61 % by Siddiqui's biplane method of discs.
2. Normal left ventricular size, wall thickness and systolic function. No regional wall motion abnormalities are seen.
Plan
Impression: syncope with multiple falls without prodrome, unclear etiology at this time
-obtain brain MRI
-obtain orthostatic vital signs BID, encourage fluid intake, keep HOB >30 degrees
-obtain EEG to rule out seizure activity
-PT/OT evaluations
-smoking cessation advised
-may benefit from neuropsychological testing outpatient
-appreciate cardiology recommendations
All questions encouraged and answered, plan of care discussed with Dr. Snyder, patient and
Consultation
Order
Date of Consultation: 05/07/25
Requesting Provider: hospitalist
Reason for Consult: syncope/multiple falls
Subjective/Objective
Subjective Data
Date of Service: May 07, 2025
64 year-old right-handed male with past medical history of degenerative disc disease with nerve stimulator, s/p lumbar fusion, chronic pain requiring narcotics, type 2 diabetes mellitus, hypercholesterolemia, and current smoker presented to [facility] on
05/06/2025 for evaluation of multiple syncopal episodes and falls. Patient had 3 syncopal episodes over 2 hours at home yesterday does not remember these events. He denies prodrome. He does not remember standing or walking after any of the episodes.
2 days prior patient fell into his night stand without LOC but patient has no recollection. 3 days prior patient had mechanical fall into his fish pond with no LOC but has no recollection of this either. Denies tongue/cheek laceration or
incontinence of bowel/bladder. He states he has had 4-5 months with LUE shaking with dropping things with both hands. Denies changes in medications. Has headaches at least 4 times a week takes aspirin, tylenol or advil. Headaches located in
forehead. Pain 6/10, lasting hours to days. Denies dizziness. States he has been having short term memory issues which have worsened in the last month. Within last year has been having issues with driving and getting lost frequently. Has chronic
pain to neck and back and has had multiple surgeries in the past. He denies chest pain, dizziness, shortness of breath, and palpitations. Denies issues with vision, chewing or swallowing. Denies issues with bowel/bladder. In ED, head CT with no
acute intracranial abnormality.
Objective Data
Vital Signs
Temp Pulse Resp BP Pulse Ox
98.6 F 64 12 155/78 95
05/07/25 11:00 05/07/25 11:00 05/07/25 11:00 05/07/25 11:00 05/07/25 11:00
Lab Results
05/07/25 07:13
05/07/25 07:13
Sodium 138 mmol/L (135-145) 05/07/25 07:13
Potassium 4.4 mmol/L (3.5-5.1) 05/07/25 07:13
BUN 16 mg/dl (9-20) 05/07/25 07:13
Glucose 127 mg/dl (70-99) H 05/07/25 07:13
Calcium 9.0 mg/dl (8.4-10.2) 05/07/25 07:13
Patient Allergies
Penicillins Allergy (Verified 05/06/25 15:08)
Unknown
Physical Exam
-
General: No Apparent Distress, Comfortable and Appears Stated Age
HEENT: Normocephalic, Atraumatic and Anicteric
Neck: Full Range of Motion
Respiratory: No Dyspnea
Cardiac: No JVD
GI: Non-distended
Skin: Unremarkable
Extremities: No Clubbing, No Cyanosis and No Edema
Psych: Unremarkable
Extended Neurological Exam
Mood & Affect: Mood Unremarkable
Attention Span & Concentration: Awake, Alert, Interactive, No Difficulty with 2 Step Request and Other (oriented to month and year, good with holidays)
Memory: Vague and Incomplete Historian
Tremor: Head Tremor Absent and Other (LUE tremor with outstretched arms)
Speech: Quality Unremarkable, Quantity Unremarkable and Rate of Production Unremarkable
Cranial Nerve II: Left Eye: Visual Ta Intact
Cranial Nerve II: Right Eye: Visual Ta Intact
Cranial Nerves III, IV, : Extraocular Movement: Extraocular Movement Full in all Directions
Cranial Nerve V: Facial Sensation: Facial Sensation Unremarkable to Cold
Cranial Nerve VII: Facial Symmetry: Normal Facial Symmetry
Cranial Nerve VIII: Hearing: Unremarkable Hearing to Normal Conversational Volume
Cranial Nerve XI: Shoulder Shrug: Unremarkable
Cranial Nerve XII: Tongue Protusion: Midline
Muscle Strength, Overall: Full Throughout
Pronator Drift: No Drift in Upper Extremities and No Drift in Lower Extremities
Touch Sensation: Unremarkable and Double Simultaneous Stimulation Unremarkable
Coordination: Soolae-hbil-iinpnu Testing Unremarkable and Reaches for Objects without Difficulty
Medications
-
Active Medications
Generic Name Dose Route Start Last Admin
Trade Name Freq PRN Reason Stop Dose Admin
Acetaminophen 650 mg 05/06/25 22:22 05/07/25 08:36
Acetaminophen 325 Mg Tablet PO 06/03/25 22:21 650 mg
Q6HPRN PRN Administration
mild pain
Al Hydrox/Mg Hydrox/Simethicone 30 ml 05/07/25 08:44
Mag/Al/Simethicone Suspension 30 Ml Cup PO 06/04/25 08:43
Q4HPRN PRN
STOMACH ISSUES
Alprazolam 1 mg 05/06/25 22:22 05/07/25 08:24
Alprazolam 1 Mg Tablet PO 06/03/25 22:21 1 mg
TID LINDY Administration
Heparin Sodium 5,000 units 05/07/25 08:00 05/07/25 08:31
Heparin 5,000 Units/Ml 1 Ml Vial SC 06/04/25 07:59 Not Given
Q12 LINDY
Methadone HCl 15 mg 05/07/25 08:00 05/07/25 08:24
Methadone 10 Mg Tablet PO 05/21/25 07:59 15 mg
BID LINDY Administration
Oxycodone HCl 20 mg 05/06/25 22:45 05/07/25 12:37
Oxycodone 10 Mg Regular Release Tablet PO 05/20/25 22:44 20 mg
Q6H PRN Administration
CHRONIC PAIN
Quetiapine Fumarate 400 mg 05/07/25 22:00
Quetiapine 100 Mg Tablet PO 06/04/25 21:59
HS LINDY
Home Medications
�Medication �Instructions �Recorded
methadone 10 mg tablet 15 mg PO BID 08/14/19
acetaminophen 325 mg tablet 650 mg PO Q6HPRN PRN mild pain 05/06/25
(Tylenol)
alprazolam 1 mg tablet (Xanax) 1 mg PO TID 05/06/25
aspirin-sodium bicarbonate-citric 324 ea PO DAILYPRN PRN stomach 05/06/25
acid 324 mg effervescent tablet issuses
oxycodone 20 mg tablet 20 mg PO Q6 PRN pain 05/06/25
quetiapine 400 mg tablet (Seroquel) 400 mg PO HS 05/06/25
Past History
Past History
ED Past Medical History: Other (Pancreatitis) and Other (Patient has had degenerative disc disease of the neck, with resultant radiculopathy. The patient also has chronic pain issues.)
ED Past Surgical History: Other (The patient has had multiple cervical surgeries)
Family/Social History
Tobacco: Smoker
Alcohol: Occasional
Personal:
Living: with family
Employment: Employed
--- NOTE | 2025-05-07 14:33 | CON.CAR ---
Addendum entered and electronically signed by Radhames Valentin MD 05/07/25 16:13:
I saw and examined the patient.
The REPRODUCTIVE SURGEON's note was reviewed and I agree with the note.
Comment: 64-year-old male with degenerative disc disease with nerve stimulator, chronic pain requiring narcotics, type 2 diabetes mellitus, hypercholesterolemia, and current smoker who presented to the emergency department today after having 3
syncopal episodes over 2 hours at home.
It isn't clear to me the cause of his syncopal episodes; he denies any usual prodrome that would be concerning for arrhythmia. It is concerning that this has happened multiple times over the last ~2 weeks. Thus far, his telemetry has been
unremarkable and echocardiogram was unremarkable.
- If no obvious cause for his then recommend a 30 day monitor and follow up in office afterwards
Original Note:
Consultation
Consultation Request
Date/Time Consultation Requested: 05/07/2025 13:45
Date/Time Consultation Performed: 05/07/2025 14:30
Requesting Provider: Sharri Pollock MD [Resident]
Performing Provider: GILLIAN Schwartz for Dr. Valentin
Reason for Consultation: Syncope
Medical History
-
Chief Complaint: Syncope
History of Present Illness:
Santos Austin is a 64-year-old male with degenerative disc disease with nerve stimulator, chronic pain requiring narcotics, type 2 diabetes mellitus, hypercholesterolemia, and current smoker who presented to the emergency department today after
having 3 syncopal episodes over 2 hours at home. He denies prodrome. He believes he had 3 episodes of syncope based on the blood pattern throughout his home. He does not remember standing or walking after any of the episodes. He initially remembers
being in the kitchen. Last week, while picking tomatoes, he had a witnessed episode of syncope next to his pond. His was present. This also had no prodrome. He denies chest pain, dizziness, shortness of breath, and palpitations.
Past Medical History
Past Medical History: Hypercholesterolemia, NIDDM and Other (Chronic pain requiring narcotics, spinal stimulator)
Past Surgical History: Cholecystectomy, Orthopedic and Tonsilectomy
Social History
Tobacco: Smoker
Personal:
Living: With Family
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
Family History
Family History: Reviewed & Not Pertinent (Denies early CAD and SCD.)
Allergies / Home Medications
Allergy/AdvReac Type Severity Reaction Status Date / Time
Penicillins Allergy Unknown Verified 05/06/25 15:08
�Medication �Instructions �Recorded �Confirmed �Type
methadone 10 mg tablet 15 mg PO BID 08/14/19 05/06/25 History
acetaminophen 325 mg tablet 650 mg PO Q6HPRN PRN mild pain 05/06/25 05/06/25 History
(Tylenol)
alprazolam 1 mg tablet (Xanax) 1 mg PO TID 05/06/25 05/06/25 History
aspirin-sodium bicarbonate-citric 324 ea PO DAILYPRN PRN stomach 05/06/25 05/06/25 History
acid 324 mg effervescent tablet issuses
oxycodone 20 mg tablet 20 mg PO Q6 PRN pain 05/06/25 05/06/25 History
quetiapine 400 mg tablet (Seroquel) 400 mg PO HS 05/06/25 05/06/25 History
Review of Systems
-
History Source: Patient
All other systems: Negative unless noted
Constitutional: Fatigue
EENT: No Symptoms
Respiratory: No Symptoms
Cardiac: Syncope
Abdomen/GI: No Symptoms
: No Symptoms
Musculoskeletal: No Symptoms
Skin: No Symptoms
Neurological: No Symptoms
Endocrine: No Symptoms
Hematologic/Lymphatic: No Symptoms
Physical Exam
Vital Signs
Temp Pulse Resp BP Pulse Ox
98.6 F 64 12 155/78 95
05/07/25 11:00 05/07/25 11:00 05/07/25 11:00 05/07/25 11:00 05/07/25 11:00
Lab Results
05/07/25 07:13
05/07/25 07:13
Troponin I < 0.012 ng/ml 05/06/25 17:24
Physical Exam
General: Well Developed, Well Nourished, No Apparent Distress and Comfortable
HEENT: Normocephalic, Anicteric and Moist Mucous Membranes
Respiratory: Clear and Non Labored Respirations
Cardiac: S1/S2 and Regular Rhythm
Breast: Deferred by me
GI: Soft, Non Tender, Non Distended and Normal Bowel Sounds
Rectal: Deferred by Provider
Genito-urinary: No Costovertebral Tender
Musculoskeletal: No Clubbing and No Cyanosis
Skin: Warm and Dry
Neuro: Awake and Alert
Hematologic/Lymphatic: No Lymphadenopathy
Psych: Calm
Impression / Plan
-
I/P: 64M with degenerative disc disease with nerve stimulator, chronic pain requiring narcotics, type 2 diabetes mellitus, hypercholesterolemia, and current smoker who presented to the emergency department today after having 3 syncopal episodes over
2 hours at home. He does not recall the event and did not have prodrome.
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
Syncope
- He believes he had 3 episodes of syncope yesterday and had an additional episode of syncope last week witnessed by his
- EKG shows shift in axis from right to left compared to prior EKG 1 year ago
- No acute findings on head CT
- Echocardiogram pending
- No acute findings on telemetry
- If workup is unrevealing, will recommend 30-day MCOT monitoring
Elevated blood pressure without formal diagnosis of hypertension
Hypercholesterolemia
- Most recent LDL over 150 with type 2 diabetes and current smoking his ASCVD risk will be elevated
- Statin recommended
Chronic pain, requiring narcotics, per primary service
Type 2 diabetes mellitus, HgbA1c 6.7% last year
Current smoker, full cessation recommended
Data Reviewed
-
EKG: Report Reviewed by me
Medical Tests (Nuc Med, Echo etc): Report Reviewed by me
Labs: Labs Reviewed by me
Old Records: Reviewed
[2025-05-07] MEDS: SEROQUEL 400 MG PO (21:05)
[2025-05-08] VITALS (8 sets, daily range): BP systolic 124–166; BP diastolic 66–77; PULSE 67–74
[2025-05-08] MEDS: ROXICODONE 20 MG PO ×2 (06:36→13:01)
[2025-05-08 07:30] LABS: Hematocrit 40.7 % (39.0-52.0); Hemoglobin 13.5 g/dL (13.0-18.0); Mean Corp Hgb Conc. 33.2 g/dL (33.0-37.0); Mean Corpuscular Volume 86.8 fL (80.0-94.0); Nucleated Red Blood Cells % 0 % (-); Platelet Count 291 10^3/uL (130-400); Red Cell Dist. Width 14.2 % (11.5-14.5)
[2025-05-08] MEDS: XANAX 1 MG PO ×3 (07:40→22:11)
[2025-05-08] MEDS: DOLOPHINE 15 MG PO ×2 (07:40→20:43)
--- NOTE | 2025-05-08 07:58 | W.PN.CD ---
Today's Communication / Plan
-
- EEG today
Impression / Plan
-
I/P: 64M with degenerative disc disease with nerve stimulator, chronic pain requiring narcotics, type 2 diabetes mellitus, hypercholesterolemia, and current smoker who presented to the emergency department today after having 3 syncopal episodes over
2 hours at home. He does not recall the event and did not have prodrome.
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
Syncope
- He believes he had 3 episodes of syncope yesterday and had an additional episode of syncope last week witnessed by his
- EKG shows shift in axis from right to left compared to prior EKG 1 year ago
- No acute findings on head CT
- Echocardiogram pending
- No acute findings on telemetry
- If workup is unrevealing, will recommend 30-day MCOT monitoring
- EEG today
Elevated blood pressure without formal diagnosis of hypertension
Hypercholesterolemia
- Most recent LDL over 150 with type 2 diabetes and current smoking his ASCVD risk will be elevated
- Statin recommended
Chronic pain, requiring narcotics, per primary service
Type 2 diabetes mellitus, HgbA1c 6.7% last year
Current smoker, full cessation recommended
Physical Exam
Vital Signs/Labs
Vital Signs
Temp Pulse Resp BP Pulse Ox
97.7 F 63 20 139/76 94
05/08/25 03:55 05/08/25 03:55 05/08/25 03:55 05/08/25 03:55 05/08/25 03:55
05/07/25 05/08/25 05/09/25
06:59 06:59 06:59
Actual Weight 90.582 kg
05/08/25 06:46
Triglycerides Cancelled 05/08/25 07:39
LDL Cholesterol, Calc Cancelled 05/08/25 07:39
VLDL Cholesterol, Calc Cancelled 05/08/25 07:39
HDL Cholesterol Cancelled 05/08/25 07:39
LAB Results
05/06/25 05/06/25
15:28 17:24
Troponin I Cancelled < 0.012
Physical Exam
Constitutional: No acute distress and Comfortable
EENT: Anicteric and Moist mucous membranes
Cardiovascular: Rhythm & rate is regular and Pedal edema is absent
Respiratory: Respiratory effort normal
Neuro/Psych: Alert, Oriented and AO x 3
Data Reviewed
-
Date of Service: May 08, 2025
Medical Decision Making: Test Interpretation and Review of Case with other Provider
EKG: Tracing Personally Visualized and interpreted
Echo: Report Reviewed by me
Labs: Labs Reviewed by me
Old Records: Reviewed
[2025-05-08 08:50] LABS: Blood Urea Nitrogen 19 mg/dl (9-20); Calcium 8.8 mg/dl (8.4-10.2); Carbon Dioxide 30 mmol/L (22-30); Chloride 106 mmol/L (98-107); Estimated Creatinine Clearance 87 ml/min; Glucose 110 mg/dl (70-99); HDL Cholesterol 41 mg/dl; LDL Cholesterol, Calculated 125 mg/dl; Potassium 4.0 mmol/L (3.5-5.1); Sodium 140 mmol/L (135-145); Very Low Density Lipoprotein 26 mg/dl (0-30); eGFR > 60.00
--- NOTE | 2025-05-08 09:54 | CM ---
Reviewed chart. Met with pt bedside. Having Brain MRI today
Plan: Home no needs
--- NOTE | 2025-05-08 12:44 | EEG.RPT ---
Electroencephalogram Report
Recording
Date of EE05/08/25
Type of EEG: Routine
Length of EEG recordin minutes
Done with Video Recording: Yes
Patient Status: Inpatient
Recording Conditions: Awake and Drowsy
Hyperventilation Performed: No
Photic Stimulation Performed: Yes
Report
GREATER THAN 1 HOUR EEG INTERPRETATION:
Unremarkable EEG for age
CLINICAL CORRELATION:
A normal EEG does not rule out a diagnosis of epilepsy. If clinical suspicion for seizure persists, a prolonged recording may be warranted.
Clinical correlation is advised.
METHODS:
A 21 channel digitized electroencephalogram (EEG) was performed using the 10/20 international system of electrode placement and one-lead of ECG recorded. The [employer] quantitative EEG system was utilized.
ELECTROENCEPHALOGRAPHER IMPRESSION(S):
Quality of study
Good
Background
There was an unremarkable anterior-posterior voltage gradient of alpha frequency.
With eye opening the background activity changed to a low voltage mixture of frequencies.
There were no significant asymmetries of background activity noted.
Sleep
Drowsiness present
Hyperventilation
No activation
Photic Stimulation
No activation
ECG
Normal sinus rhythm
--- NOTE | 2025-05-08 12:54 | W.PN.HOSP.TC ---
Today's Communication/Plan
-
Echo was normal. EEG was unremarkable.
Removed all 3 nunu in posterior right scalp prior to brain MRI. Brain MRI was unremarkable. He
Cardiology recommending 30-day mobile cardiac outpatient telemetry.
Assessment / Plan
Assessment / Plan
Impression
64-year-old male past medical history of degenerative disc disease with nerve stimulator, splenic rupture, presenting with multiple syncopal episodes today. He had 3 syncopal episodes in the span of 2 hours today. They were not associate with
dizziness or prodrome. He did hit his head with a laceration on the head and saw blood on the floor. He has been feeling unwell for the past 2 days with sore throat some minor cough and feeling little flushed in the face which is sometimes normal
for him. He has been eating and drinking less in the past 2 days. Denies fevers or chills. Denies vomiting or diarrhea or abdominal pain. Denies urinary symptoms.
Plan
# Syncopal episodes without prodrome concerning for cardiac or neuro etiology
Does not seem to be related to hypovolemia from viral URI blood pressure 150s
�Orthostatic vital signs negative x 2
EKG: Normal sinus rhythm and shifted axis from right to left compared to EKG [address] head: No acute intracranial abnormality
Neurology consulted
� Brain MRI: Unremarkable
� Ativan 1 mg p.o. ordered on-call for brain MRI, given patient's worry about intense claustrophobia, which occurred during a prior MRI
� EEG: Unremarkable for age
Cardiology consulted
- echo: LVEF normal 61%. Normal LV size, wall thickness, systolic function. No regional wall motion abnormalities
- Telemetry with no acute finding
- 30-day MCOT monitoring
# Leukocytosis/sore throat secondary to viral URI�resolved
Has enlarged lymph node in the left neck
Chest x-ray unremarkable
COVID negative
Degenerative disc disease with prior nerve stimulator
- Continue Tylenol, methadone, oxycodone
History of splenic rupture
Anxiety
- Continue Xanax
Occasional smoker
Full code
DVT prophylaxis�heparin
Regular diet
Anticipated Discharge: Within 24 hours
Subjective/Interval History
-
Date of Service: May 08, 2025
No acute events overnight. Patient had no complaints, other than continued headache at a 6-7 out of 10.
We removed 3 scalp nunu prior to brain MRI. He tolerated it well.
Objective Data
-
Labs:
Laboratory Results
05/08/25
06:46
WBC 9.1
Hgb 13.5
Hct 40.7
Plt Count 291
Sodium 140
Potassium 4.0
Chloride 106
Carbon Dioxide 30
BUN 19
Creatinine 0.9
Glucose 110 H
Calcium 8.8
Vital Signs:
Vital Signs
Temp Pulse Resp BP Pulse Ox
98.5 F 67 12 154/74 96
05/08/25 11:00 05/08/25 11:00 05/08/25 11:00 05/08/25 11:00 05/08/25 11:00
I&O
05/07/25 05/08/25 05/09/25
06:59 06:59 06:59
Intake Total 480 / 480
Balance 480 / 480
Review of Systems
-
History Source: Patient
Constitutional: Reports No Symptoms
Respiratory: Reports No Symptoms
Cardiac: Reports No Symptoms
Musculoskeletal: Reports No Symptoms
Skin: Reports No Symptoms
Neuro: Reports No Symptoms
Physical Exam
-
General: Well Developed, Well Nourished, No Apparent Distress and Comfortable
HEENT: Normocephalic, Atraumatic, Moist Mucous Membranes, Anicteric, Nose Appears Normal and Ears Appear Normal
Respiratory: Clear to Auscultation
Cardiac: Regular Rhythm and S1/S2
GI: Soft, Nontender, Nondistended and Normal Bowel Sounds
Musculoskeletal: No Clubbing, No Cyanosis and No Edema
Skin: Warm and Dry
Neuro: Awake, Alert, Oriented, Nonfocal/Grossly Intact and Central Nerve's Intact
Psych: Calm
Data Reviewed
-
Total Time Spent with Patient (in minutes): 35
Diagnostic Radiology: Report Reviewed by me
Ultrasound: Report Reviewed by me
MRI: Report Reviewed by me
Labs: Labs Reviewed by me
--- NOTE | 2025-05-08 13:19 | W.PN.UPDATE ---
Update Note
Progress Note Update
Seen and examined the patient. Agree with the plan formulated by the resident. Discussed. See changes in my documentation
63-year-old with syncope. Had 3 syncopal episodes in the span of 2 hours patient had some sore throat and minor cough in the past couple of days. Patient stated that a few days 2 weeks ago he had an episode where he was trying to climb into a bed
and missed and had a fall back states that he did not lose consciousness or hit his head. Another time he lost balance and fell into the small 50 pound but again did not lose consciousness. Yesterday patient was at home was at kitchen trying
to break make breakfast and he passed out
He notices that he saw some blood on the floor and he was sitting on the couch and he does not know how he got to the couch. He stood up and seem to have passed out again and was sitting on the floor. And yet a third episode where he passed out
and had no recollection and was sitting again on the couch. was not present at home.
Head CT-no acute intracranial abnormality
Chest x-ray unremarkable
EKG-sinus rhythm QTc 443
On examination nunu in the back of the head-were removed today
Reflexes are normal bilaterally good strength bilaterally, good strength
Cardiovascular system S1-S2 appreciated, short systolic murmur at apex
Abdomen soft and nontender
# Syncopal episodes without prodrome
Monitor on telemetry
EKG sinus rhythm
Head CT without any acute changes
Negative orthostatics
Check echo-LVEF is normal. 61%. Normal size and systolic function
Check EEG and MRI of the brain with and without contrast-consults pending
Neurology and cardiology evaluations appreciated
So far no reasons found for syncope
# Leukocytosis-resolved
Recent URI
# DJD with prior nerve stimulator-on methadone and oxycodone as outpatient
# History of splenic rupture
# Anxiety-on as needed Xanax
# Occasional smoker
# DVT prophylaxis-Lovenox
# Full code
Nunu removed. No gaping wound or bleeding noted. Leave wound as it is for now. Okay to shower
Part of this note was created using voice recognition system. Occasional wrong word or��sound alike� substitutions may have inadvertently occurred due to the inherent limitations of voice recognition software. If noted kindly bring it to my
attention for correction.
[2025-05-08 13:38] LABS: Glycohemoglobin (HgbA1c) 6.8 % (4.0-5.6)
--- NOTE | 2025-05-08 16:03 | W.PN.UPDATE ---
Update Note
Progress Note Update
HPI
64-year-old male past medical history of degenerative disc disease with nerve stimulator, splenic rupture, presenting with multiple syncopal episodes today. He had 3 syncopal episodes in the span of 2 hours today. They were not associate with
dizziness or prodrome. He did hit his head with a laceration on the head and saw blood on the floor. He has been feeling unwell for the past 2 days with sore throat some minor cough and feeling little flushed in the face which is sometimes normal
for him. He has been eating and drinking less in the past 2 days. Denies fevers or chills. Denies vomiting or diarrhea or abdominal pain. Denies urinary symptoms.
ED course
EKG normal sinus rhythm, chest x-ray negative, COVID-negative, CT head no acute intracranial abnormality
Elevated white count of 14.8, pending blood cultures
# Syncopal episodes without prodrome concerning for cardiac or neuro etiology
Does not seem to be related to hypovolemia from viral URI blood pressure 150s
�Orthostatic vital signs negative x 2
EKG: Normal sinus rhythm and shifted axis from right to left compared to EKG [address] head: No acute intracranial abnormality
Neurology consulted
� Brain MRI: Unremarkable
� EEG: Unremarkable for age
� Patient may follow-up outpatient with neurology for neuropsychiatric testing
Cardiology consulted
- echo: LVEF normal 61%. Normal LV size, wall thickness, systolic function. No regional wall motion abnormalities
- Telemetry with no acute finding
- 30-day MCOT monitoring. Patient instructed to follow-up with cardiology outpatient
# Leukocytosis/sore throat secondary to viral URI�resolved
Has enlarged lymph node in the left neck
Chest x-ray unremarkable
COVID negative
#Diabetes
HbA1c 6.8
Triglycerides 135, total cholesterol 192, LDL 125, VLDL 26, HDL 41
� High intensity statin indicated due to diabetes and and 10-year ASCVD risk of 30-40%
� Patient counseled on side effects of metformin and statins. He said he would like to research side effects first. He was started to follow-up with his PCP to further discuss diabetes management and ASCVD prevention
# Elevated blood pressures
Systolic 140s to 150s
� Patient counseled on measuring blood pressure at home and to follow-up with PCP regarding blood pressure monitoring
# Degenerative disc disease with prior nerve stimulator
- Continue Tylenol, methadone, oxycodone
#Anxiety
- Continue Xanax
� Ativan 1 mg p.o. ordered on-call for brain MRI, given patient's worry about intense claustrophobia, which occurred during a prior MRI. Patient did not end up taking Ativan
[2025-05-08] MEDS: TYLENOL 650 MG PO (18:25)
[2025-05-08] MEDS: ROXICODONE 15 MG PO (19:29)
[2025-05-08] MEDS: ROXICODONE 5 MG PO (19:30)
[2025-05-08] MEDS: SEROQUEL 400 MG PO (22:11)
[2025-05-09 03:45] VITALS: BP 114/63
[2025-05-09] MEDS: ROXICODONE 20 MG PO ×2 (06:35→12:40)
[2025-05-09 07:00] VITALS: BP 148/71
--- NOTE | 2025-05-09 07:52 | W.PN.NEURO.1 ---
Today's Communication / Plan
-
Continue to follow orthostatic vital signs, encourage fluid intake
may benefit from neuropsychological testing outpatient
appreciate cardiology recommendations especially regarding the possibility of POTS
Neuro Assessment/Plan
Assessment
64 year-old right-handed male with past medical history of degenerative disc disease with nerve stimulator, s/p lumbar fusion, chronic pain requiring narcotics, type 2 diabetes mellitus, hypercholesterolemia, and current smoker presented to [facility] on
05/06/2025 for evaluation of multiple syncopal episodes and falls.
Head CT: No acute intracranial abnormality.
MRI brain unremarkable
TTE:
1. Left ventricular ejection fraction is normal with an ejection fraction of 61 %.
2. Normal left ventricular size, wall thickness and systolic function. No regional wall motion abnormalities are seen.
Impression: syncope with multiple falls without prodrome most likely secondary to toxic metabolic encephalopathy. There is no evidence of seizure activity at this time.
Plan
Continue to follow orthostatic vital signs, encourage fluid intake
PT/OT evaluations
smoking cessation advised
may benefit from neuropsychological testing outpatient
appreciate cardiology recommendations especially regarding the possibility of POTS
Will follow as needed.
Subjective/Objective
Subjective Data
Date of Service: May 09, 2025
Objective Data
Vital Signs
Temp Pulse Resp BP Pulse Ox
36.7 C 65 18 114/63 94
05/09/25 03:45 05/09/25 03:45 05/09/25 03:45 05/09/25 03:45 05/09/25 03:45
Sodium 140 mmol/L (135-145) 05/08/25 06:46
Potassium 4.0 mmol/L (3.5-5.1) 05/08/25 06:46
BUN 19 mg/dl (9-20) 05/08/25 06:46
Glucose 110 mg/dl (70-99) H 05/08/25 06:46
Calcium 8.8 mg/dl (8.4-10.2) 05/08/25 06:46
LDL Cholesterol, Calc Cancelled 05/08/25 07:39
Patient Allergies
Penicillins Allergy (Verified 05/06/25 15:08)
Unknown
--- NOTE | 2025-05-09 07:56 | W.PN.HOSP.TC ---
Addendum entered and electronically signed by Alber Mars MD 05/09/25 13:42:
I saw and evaluated the patient. I reviewed the resident�s note and agree with findings and plan as documented in the resident�s note.
Patient was ambulating in the room with no complaints
Exam is unremarkable
No clear reason for syncope but patient is going to get a 30-day monitor as outpatient
Scalp without any oozing or bleeding
Discussed about diabetes which is a new diagnosis for him and also about mild hyperlipidemia
He wants to talk to PCP prior to taking any medicines
Diet and weight loss discussed with the patient
Pls teach how to do accu checks
Dietary and diabetes education consults if possible prior to DC
All follow-up care including spine eval discussed with the patient
More than 30 minutes spent in discharge including
Final examination of the patient
Summarizing hospital stay
Instructions for continuing care to all relevant caregivers
Preparation of discharge records, prescriptions, and referral forms
Original Note:
Today's Communication/Plan
-
Patient informed of EEG and MRI results. Instructed to follow-up with cardiology for 30-day monitor and neurology.
He was also informed of his A1c and diabetes diagnosis. He was counseled on the side effects of metformin, SGLT2 inhibitors, and statins. He is also informed of elevated blood pressures, elevated 10-year risk of ASCVD and lipid panel (normal). He
declines starting new medications today, because he wanted to research the side effects first. He was encouraged to follow-up with his primary care provider for diabetes, hypertension, and statin initiation.
Assessment / Plan
Assessment / Plan
Impression
64-year-old male past medical history of degenerative disc disease with nerve stimulator, splenic rupture, presenting with multiple syncopal episodes today. He had 3 syncopal episodes in the span of 2 hours today. They were not associate with
dizziness or prodrome. He did hit his head with a laceration on the head and saw blood on the floor. He has been feeling unwell for the past 2 days with sore throat some minor cough and feeling little flushed in the face which is sometimes normal
for him. He has been eating and drinking less in the past 2 days. Denies fevers or chills. Denies vomiting or diarrhea or abdominal pain. Denies urinary symptoms.
Plan
# Syncopal episodes without prodrome concerning for cardiac or neuro etiology
Does not seem to be related to hypovolemia from viral URI blood pressure 150s
�Orthostatic vital signs negative x 2
EKG: Normal sinus rhythm and shifted axis from right to left compared to EKG [address] head: No acute intracranial abnormality
Neurology consulted
� Brain MRI: Unremarkable
� EEG: Unremarkable for age
� Patient may follow-up outpatient with neurology for neuropsychiatric testing
Cardiology consulted
- echo: LVEF normal 61%. Normal LV size, wall thickness, systolic function. No regional wall motion abnormalities
- Telemetry with no acute finding
- 30-day MCOT monitoring. Patient instructed to follow-up with cardiology outpatient
#Diabetes
HbA1c 6.8
Triglycerides 135, total cholesterol 192, LDL 125, VLDL 26, HDL 41
� High intensity statin indicated due to diabetes and and 10-year ASCVD risk of 30-40%
� Patient counseled on side effects of metformin and statins. He said he would like to research side effects first. He was started to follow-up with his PCP to further discuss diabetes management and ASCVD prevention
# Elevated blood pressures
Systolic 140s to 150s
� Patient counseled on measuring blood pressure at home and to follow-up with PCP regarding blood pressure monitoring
# Leukocytosis/sore throat secondary to viral URI�resolved
Has enlarged lymph node in the left neck
Chest x-ray unremarkable
COVID negative
Degenerative disc disease with prior nerve stimulator
- Continue Tylenol, methadone, oxycodone
Anxiety
- Continue Xanax
� Ativan 1 mg p.o. ordered on-call for brain MRI, given patient's worry about intense claustrophobia, which occurred during a prior MRI. Patient did not end up taking Ativan
Occasional smoker
Full code
DVT prophylaxis�heparin
Regular diet
Anticipated Discharge: Today
Subjective/Interval History
-
Date of Service: May 09, 2025
No acute events overnight. Patient had no complaints. Informed patient of his EEG and MRI results (unremarkable).
Objective Data
-
Labs:
Laboratory Results
05/09/25
07:04
WBC Pending
Hgb Pending
Hct Pending
Plt Count Pending
Sodium Pending
Potassium Pending
Chloride Pending
Carbon Dioxide Pending
BUN Pending
Creatinine Pending
Glucose Pending
Calcium Pending
05/06/25 19:43 Blood/Venous Blood Culture - Preliminary
No Growth in 48 hours- Final report to follow
05/06/25 19:43 Blood/Venous Blood Culture - Preliminary
No Growth in 48 hours- Final report to follow
Vital Signs:
Vital Signs
Temp Pulse Resp BP Pulse Ox
98.0 F 65 18 114/63 94
05/09/25 03:45 05/09/25 03:45 05/09/25 03:45 05/09/25 03:45 05/09/25 03:45
I&O
05/08/25 05/09/25 05/10/25
06:59 06:59 06:59
Intake Total 1680 / 1680
Balance 1680 / 1680
Review of Systems
-
History Source: Patient
Constitutional: Reports No Symptoms
EENT: Reports No Symptoms Reported
Respiratory: Reports No Symptoms
Cardiac: Reports No Symptoms
Abdomen/GI: Reports No Symptoms
Genitourinary: Reports No Symptoms
Musculoskeletal: Reports No Symptoms
Skin: Reports No Symptoms
Neuro: Reports No Symptoms
Physical Exam
-
General: Well Developed, Well Nourished, No Apparent Distress and Comfortable
HEENT: Normocephalic, Atraumatic, Moist Mucous Membranes, Nose Appears Normal and Ears Appear Normal
Respiratory: Clear to Auscultation
Cardiac: Regular Rhythm and S1/S2
GI: Soft, Nontender, Nondistended and Normal Bowel Sounds
Musculoskeletal: No Clubbing, No Cyanosis and No Edema
Skin: Warm and Dry
Neuro: Awake, Alert and Oriented
Psych: Calm
Data Reviewed
-
Total Time Spent with Patient (in minutes): 35
Diagnostic Radiology: Report Reviewed by me
MRI: Report Reviewed by me
Medical Tests (Nuc Med, Echo etc): Report Reviewed by me
Labs: Labs Reviewed by me
[2025-05-09] MEDS: DOLOPHINE 15 MG PO (08:01)
[2025-05-09] MEDS: XANAX 1 MG PO (08:02)
[2025-05-09 08:17] LABS: Hematocrit 38.6 % (39.0-52.0); Hemoglobin 13.0 g/dL (13.0-18.0); Mean Corp Hgb Conc. 33.7 g/dL (33.0-37.0); Mean Corpuscular Volume 86.0 fL (80.0-94.0); Nucleated Red Blood Cells % 0 % (-); Platelet Count 268 10^3/uL (130-400); Red Cell Dist. Width 14.1 % (11.5-14.5)
[2025-05-09 08:49] LABS: Blood Urea Nitrogen 22 mg/dl (9-20); Calcium 8.9 mg/dl (8.4-10.2); Carbon Dioxide 29 mmol/L (22-30); Chloride 105 mmol/L (98-107); Estimated Creatinine Clearance 78 ml/min; Glucose 114 mg/dl (70-99); Potassium 4.2 mmol/L (3.5-5.1); Sodium 139 mmol/L (135-145); eGFR > 60.00
[2025-05-09 09:56] VITALS: BP 121/68; BP 134/70; BP 148/71; PULSE 64; PULSE 75; PULSE 76
[2025-05-09 11:00] VITALS: BP 150/77
[2025-05-09 11:25] VITALS: BP 150/77
--- NOTE | 2025-05-09 11:28 | W.DCSUMMARY ---
Discharge Summary
Discharge Data
Date of Admission: 05/06/25
Date of Discharge: 05/09/25
Total time spent discharging patient (in min): 55
-
Pending Results: Yes
Additional Pending Results:
Vitamin B12 level, folate level
Hospital Course
HPI
64-year-old male past medical history of degenerative disc disease with nerve stimulator, splenic rupture, presenting with multiple syncopal episodes today. He had 3 syncopal episodes in the span of 2 hours today. They were not associate with
dizziness or prodrome. He did hit his head with a laceration on the head and saw blood on the floor. He has been feeling unwell for the past 2 days with sore throat some minor cough and feeling little flushed in the face which is sometimes normal
for him. He has been eating and drinking less in the past 2 days. Denies fevers or chills. Denies vomiting or diarrhea or abdominal pain. Denies urinary symptoms.
ED course
EKG normal sinus rhythm, chest x-ray negative, COVID-negative, CT head no acute intracranial abnormality
Elevated white count of 14.8, pending blood cultures
# Syncopal episodes without prodrome concerning for cardiac or neuro etiology
Does not seem to be related to hypovolemia from viral URI blood pressure 150s
�Orthostatic vital signs negative x 2
EKG: Normal sinus rhythm and shifted axis from right to left compared to EKG [address] head: No acute intracranial abnormality
Neurology consulted
� Brain MRI: Unremarkable
� EEG: Unremarkable for age
� Patient may follow-up outpatient with neurology for neuropsychiatric testing
Cardiology consulted
- echo: LVEF normal 61%. Normal LV size, wall thickness, systolic function. No regional wall motion abnormalities
- Telemetry with no acute finding
- 30-day MCOT monitoring. Patient instructed to follow-up with cardiology outpatient
# Leukocytosis/sore throat secondary to viral URI�resolved
Has enlarged lymph node in the left neck
Chest x-ray unremarkable
COVID negative
#Diabetes
HbA1c 6.8
Triglycerides 135, total cholesterol 192, LDL 125, VLDL 26, HDL 41
� High intensity statin indicated due to diabetes and and 10-year ASCVD risk of 30-40%
� Patient counseled on side effects of metformin and statins. He said he would like to research side effects first. He was started to follow-up with his PCP to further discuss diabetes management and ASCVD prevention
# Elevated blood pressures
Systolic 140s to 150s
� Patient counseled on measuring blood pressure at home and to follow-up with PCP regarding blood pressure monitoring
# Degenerative disc disease with prior nerve stimulator
- Continue Tylenol, methadone, oxycodone
#Anxiety
- Continue Xanax
� Ativan 1 mg p.o. ordered on-call for brain MRI, given patient's worry about intense claustrophobia, which occurred during a prior MRI. Patient did not end up taking Ativan
Discharge Plan
-
Patient Disposition: Home (Routine Discharge)
Discharge Diagnosis/Procedures: Primary:
Syncope
Secondary:
Diabetes
Hypertension
Chronic pain from musculoskeletal surgeries of the spinal and elbows
Spleen rupture history
Condition: Fair
Diet: Low Cholesterol, Low Sodium and Diabetic, Carb Controlled
Activity: No restrictions
Others Tests: A 30-day ekg monitor is being ordered for you by the cardiology office.
Referrals:
Jarrett Snyder MD [Active, Neurology] - in two to three weeks
Referral Note: Please establish care with a neurologist for further evaluation of your other neuro symptoms (such as dropping things and getting lost while driving), in addition to syncope.
Radhames Valentin MD [Active, Cardiology] - in six weeks
Referral Note: Please make appointment for after 30 days of monitoring has been completed.
Saumya Hdez PA-C [Family Provider, Family Practice]
Additional Discharge Medication Instructions: Please follow-up with a lamp shade assembler for a 30-day outpatient ekg monitor.
We also encourage you to see a neurologist for neuro psychiatric testing. It may help explain your symptoms in addition to syncope, such as dropping objects and getting lost while driving.
Please follow-up with your primary care doctor to start diabetes management, follow-up on elevated blood pressures, and prior prevention of atherosclerotic cardiovascular disease. Your hemoglobin A1c of 6.8% is diagnostic of diabetes.
Based on a 10-year risk of atherosclerotic cardiovascular disease that we calculated, you have a greater than 10% risk of cardiovascular event in the next 10 years, which makes it prudent to start taking a statin. Please follow-up with your primary
care provider regarding starting a statin.
Prescriptions:
Continued
methadone 10 MG tablet
15 mg PO BID
acetaminophen [Tylenol] 325 mg Tablet
650 mg PO Q6HPRN PRN (Reason: mild pain)
alprazolam [Xanax] 1 mg Tablet
1 mg PO TID
Heidi-Wallace 324 mg Tablet, Effervescent
324 ea PO DAILYPRN PRN (Reason: stomach issuses)
oxycodone 20 mg Tablet
20 mg PO Q6 PRN (Reason: pain)
quetiapine [Seroquel] 400 mg Tablet
400 mg PO HS
Discharge Date and Time
Print Language: UZBEK
--- NOTE | 2025-05-09 12:13 | CM ---
PT said MD indicated he was discharged today.
Offered VN he declined .
He said he agrees with discharge.
His Saumya will drive him home.
PLAN Home no needs
[2025-05-09 12:14] LABS: Folate 9.5 ng/ml (2.76-20); Vitamin B12 647 pg/ml (239-931)
[2025-05-09 14:54] VITALS: BP 144/80
--- NOTE | 2025-05-09 15:20 | PTCARENOTE ---
Received patient this am AAOx3. Pt complained of chronic pain throughout entire body. Pt on Scheduled Methadone and Xanax. Pt medicated with PRN Roxicodone with relief. Tolerated diet well. OOB ambulating in room with assist x1. Pt seen by strip roller
and bilingual speech therapist prior to discharge. Pt instructed to follow up with PCP for diabetic management. Cont to assess patient status.
--- NOTE | 2025-05-09 15:45 | PTCARENOTE ---
Addendum entered by Elisa Tomlinson RN 05/09/25 15:51:
addendum: educated patient that Red Bull and cigarettes raise glucose levels.
Original Note:
05/09/2025 DIABETES EDUCATION CONSULT
I met with patient to review diabetes management. He is newly diagnosed with an HbA1c of 6.8%.
I educated on physiology of T2D, organ damage, managing with medications, monitoring BG, nutrition, activity, sleep and managing stress. I reinforced signs of hyperglycemia, hypoglycemia and hypoglycemia protocol; BS parameters and recommended HbA1c
goals, glucometer and CGM instructions, glucose tracker, medic alert bracelet and outpatient DSME program. Written material provided.
I provided patient with a Actiwave glucometer sample kit. Provided verbal instructions on proper blood sugar testing technique, and monitoring schedule. He declined demonstration stating he has used a glucometer in the past.
He states he has had bad headaches for a while, especially while inpatient. He smokes cigarettes and drinks Red Bull in the AM. Has not had Red Bull since admission. Discussed cutting back on the Red Bull, discussed the possibility of a withdrawal
headache and possibility of raising blood sugar. He states he likes the way it feels on his throat, discussed switching to club soda.
Encouraged patient to follow up with his PCP for post d/c appointment and to monitor medication and blood glucose levels. Provided list of endocrinologists if desired, to contact insurance company to verify in network status. Patient verbalized
understanding.
== END 2025-05-09 15:14 | disposition home or self-care (01) ==
LOC: 4 EAST ACU 21:34
PROVIDERS: ADMITTING PHYSICIAN Hospitalist; ATTENDING PHYSICIAN Hospitalist; CONSULT PHYSICIAN Internal Medicine Cardiovascular Disease; CONSULT PHYSICIAN Psychiatry & Neurology Neurology; EMERGENCY PHYSICIAN Emergency Medicine; FAMILY PHYSICIAN Physician Assistant Medical
DX: R55 Syncope and collapse (principal); I10 Essential (primary) hypertension; D64.9 Anemia, unspecified; D72.829 Elevated white blood cell count, unspecified; E11.9 Type 2 diabetes mellitus without complications; E78.00 Pure hypercholesterolemia, unspecified; F41.9 Anxiety disorder, unspecified; G89.29 Other chronic pain; R29.6 Repeated falls; J02.9 Acute pharyngitis, unspecified; F17.210 Nicotine dependence, cigarettes, uncomplicated; S01.91XA Laceration without foreign body of unspecified part of head, initial encounter; W01.0XXA Fall on same level from slipping, tripping and stumbling without subsequent striking against object, initial encounter; Z71.6 Tobacco abuse counseling; Z79.82 Long term (current) use of aspirin; Z79.891 Long term (current) use of opiate analgesic; Z79.899 Other long term (current) drug therapy; R59.0 Localized enlarged lymph nodes
CPT/HCPCS: 12001; 70450; 70553; 71046; 80048; 80053; 80061; 82607; 82746; 83036; 83605; 84484; 85025; 87040; 87811; 93005; 93306; 95813; 99285; 99406; A9575; G0378

== ENCOUNTER 2025-07-12 07:01 | Inpatient (IN) | payer OTHER, MEDICARE, SELFPAY ==
[2025-07-12] VITALS (16 sets, daily range): BP systolic 102–144; BP diastolic 59–80; BMI 27.7; BMI 27.8
[2025-07-12 05:34] LABS: Hematocrit 43.9 % (39.0-52.0); Hemoglobin 14.3 g/dL (13.0-18.0); Mean Corp Hgb Conc. 32.6 g/dL (33.0-37.0); Mean Corpuscular Volume 87.1 fL (80.0-94.0); Nucleated Red Blood Cells % 0 % (-); Platelet Count 289 10^3/uL (130-400); Red Cell Dist. Width 14.0 % (11.5-14.5)
--- NOTE | 2025-07-12 06:02 | ED.GENMED ---
History of Present Illness
<Milad Fritz, DO - Last Filed: 07/12/25 06:05>
General
Chief Complaint: Seizure
Source: patient
Exam Limitations: none
Time Seen by Provider: 07/12/25 08:17
Nursing documentation reviewed up to this point in time: agreed with
History of Present Illness
History of Present Illness:
Note:
CHIEF COMPLAINT(S)
Seizure episodes and memory loss.
HISTORY OF PRESENT ILLNESS
The patient is a 64-year-old male presenting with a history of seizures and memory loss over the past six weeks. He reports a lack of recollection surrounding each episode. The first incident occurred approximately six weeks ago at home, where he
experienced a fall and head injury, leading to a hospital stay of four days. During that time, magnetic resonance imaging (MRI) was performed, but no definitive cause was identified. A subsequent episode occurred approximately four weeks ago.
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 The patient acknowledges having undergone multiple surgeries in the past, including gallbladder removal and a brain surgery,
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 Despite having a history of seizures, the patient continues to drive against medical advice. He was previously prescribed an antiseizure medication, Keppra, during a recent
encounter, and he has been advised to wear a Holter monitor for 30 days, which has been intermittently used due to charging issues. Currently, the patient reports no alcohol or illicit drug use, aside from prescribed medications, though he admits to
smoking two cigarettes per day.
PAST MEDICAL AND SURGICAL HISTORY
The patient has a history of multiple surgeries, notably cholecystectomy and brain surgery following a work-related accident. He has also recently been diagnosed with seizures over the past six weeks.
ADDITIONAL HISTORY OBTAINED FROM SOURCES OTHER THAN THE PATIENT
Per the patients , he experienced an unresponsive episode characterized by shaking around four weeks ago, consistent with a seizure.
SOCIAL HISTORY
The patient smokes approximately two cigarettes per day. He denies alcohol and illicit drug use, stating he only uses prescribed medications.
PHYSICAL EXAM
General: Alert and oriented, no acute distress.
Skin: Warm, dry.
Head: Normocephalic, atraumatic.
Neck: Supple, trachea midline.
Eye Ears, nose, mouth and throat: Oral mucosa moist.
Cardiovascular: Normal peripheral perfusion, no edema.
Respiratory: Respirations are non-labored.
Gastrointestinal : Abdomen nondistended.
Back: Normal range of motion, normal alignment.
Musculoskeletal: Normal range of motion, normal strength.
Neurological: Alert and oriented to person, place, time, and situation. Postictal state noted in recent episodes.
Psychiatric: Cooperative, appropriate mood & affect.
PROBLEM LIST
Acute Problems:
1. Seizure episodes
2. Memory loss
3. Postictal state
Chronic Problems:
1. Smoking history
PLAN
1. Discuss the continuation or adjustment of antiseizure medications, such as Keppra, after consultation with neurology.
2. Advised the patient regarding the importance of compliance with using the Holter monitor as prescribed.
3. Plan for a repeat head imaging study to assess for any changes or new findings since the last MRI.
4. Reinforced the necessity of not driving until cleared by a neurologist.
DIFFERENTIAL DIAGNOSIS
The Differential Diagnosis includes, in no particular order and is not limited to:
1. Epilepsy
2. Cerebrovascular accident (CVA)
3. Traumatic brain injury sequelae
4. Syncope
5. Transient ischemic attack (TIA)
6. Cardiac arrhythmias
7. Hypoglycemia
8. Electrolyte imbalances
9. Medication side effects
10. Postictal confusion or delirium
Disposition:
SUMMARY OF ENCOUNTER
The patient, a 64-year-old male with a recent history of seizure episodes and memory loss, presented to the emergency department. There was a prior incident of falls and head injury six weeks ago, followed by unresponsive shaking episodes,
indicative of seizures, four weeks ago. An EEG was requested to further evaluate the seizures and a consultation with neurology was held. The patient has been experiencing memory loss and postictal confusion, following the most recent episodes.
ASSESSMENT
The patient is assessed to likely have seizures. Due to the seizure activity and for further evaluation and management, neurology has recommended hospital admission.
MANAGEMENT OF THE PATIENTS CARE WAS DISCUSSED WITH
Discussed with neurology regarding the patients seizure management.
PLAN
The patient is to be admitted to the hospital under the care of neurology for further evaluation. An EEG has been ordered to assess for seizure activity, and the initiation of levetiracetam (Keppra) is planned post-EEG results.
MEDICAL DECISION MAKING
-Complexity of Data Reviewed: Chronic conditions affecting care include the patients history of seizure episodes, memory loss, postictal state, smoking history, and prior brain surgery. Differential diagnosis includes epilepsy, cerebrovascular
accident (CVA), traumatic brain injury sequelae, syncope, transient ischemic attack (TIA), cardiac arrhythmias, hypoglycemia, electrolyte imbalances, medication side effects, and postictal confusion or delirium.
-Data:
Category 1
Clinical information was obtained from an independent historian: Input from the patients indicating unresponsive shaking episodes four weeks ago consistent with seizures.
Category 3
The management of the patients care was discussed with neurology, recommending admission and EEG prior to the initiation of levetiracetam (Keppra).
DIAGNOSIS
Possible seizure disorder (ICD-10: G40.909).
Past History
<Milad Fritz, DO - Last Filed: 07/12/25 06:05>
Past History
ED Past Medical History: Other (Pancreatitis) and Other (Patient has had degenerative disc disease of the neck, with resultant radiculopathy. The patient also has chronic pain issues.)
ED Past Surgical History: Other (The patient has had multiple cervical surgeries)
Social History
Tobacco: Smoker
Alcohol: Occasional
Personal:
Living: with family
Employment: Employed
Phy Exam
<Steven Silva DO - Last Filed: 07/12/25 14:17>
Physical Exam
Physical Exam:
.
Course
<Milad Fritz, DO - Last Filed: 07/12/25 06:05>
Orders/Labs/Results
Orders:
Orders
07/12/25 05:04
CT Head W/o Iv Contrast Urgent
Comment:
Reason For Exam: new onset seizure/headache
07/12/25 05:05
Electrocardiogram (*1) Urgent
Reason for Study: Syncope
Other Reason for Exam: seizure
EKG- Treatment ONCE
07/12/25 05:25
Complete Blood Count/With Diff Urgent
07/12/25 05:54
Levetiracetam Injectable [Keppra] 1,000 mg IV NOW STA
07/12/25 05:55
EEG Extend Monitor >1hr Urgent
07/12/25 Breakfast
Clear Liquid
At Your Request: Full Participation
07/12/25 06:28
Comprehensive Metabolic Panel Urgent
Comment: REDRAW
TSH Reflex To Free T4 Routine
07/12/25 06:34
Admit/Transfer Patient As Directed
Co-Sign Provider:
Level of Care: Inpatient admission
Assign to:: Telemetry
Physician / Group: Mark
Diagnosis: Seizure
Reason for Telemetry: Arrhythmia
Date to Stop Telemetry: 07/15/25
Time to Stop Telemetry: 11:00
Reason for Hospitalization: Seizure
Expected length of stay greater than two midnights?: Yes
ELOS- Estimated Length of Stay in days: 2
I certify the patient meets the requirements for IP care: Yes
PRN Pain Medication Management As Directed
May give lesser potent ordered pain med per pt: Yes
preference::
Protocol:: Medication orders for pain may be administered in a
manner that supports deferring to patient preference
when the pt is:
- Requesting an ordered lesser potent pain medication.
Least to most potent pain medications are defined
as: acetaminophen < NSAID < tramadol < opioids
(morphine, oxycodone, hydromorphone).
- Requesting a lesser dose of the same medication IF
ORDERED.
- Requesting a less intrusive route of administration
if both routes are prescribed by the provider (PO <
IV).
07/12/25 06:38
Code Status As Directed
Resuscitation Status: Full Code
07/12/25 11:11
0.9% Sodium Chloride 1000 ml [Nss] 1,000 ml IV 100 mls/hr
Dextrose 50%-Water [Dextrose 50% Syringe] 12.5 grams IV [id number] PRN
Glucagon [GlucaGen] 1 mg IM PRN PRN
Lorazepam [Ativan] 2 mg IV Q2H PRN
Methadone [Dolophine] 10 mg PO BID
07/12/25 11:11
NEUROLOGY CONSULT Routine
Consulting Provider: Coy Navarrete
Was physician already notified: Yes
Reason for consult: Seizure
Activity As Directed
Activity Level: Bedrest
Bedside Glucose Monitoring As Directed
Frequency: AC&HS
Additional Instructions:: Change to q6h if pt on TPN, tube feeding or not eating
EKG with chest pain [ECG as needed] As Directed
ECG as needed for:: Chest Pain
I/O [Intake/ Output] As Directed
Frequency: Per unit guidelines
Orthostatic Vital Signs As Directed
Orthostatic VS Frequency: BID
Pneumatic Compression Sleeves As Directed
Type: Knee high
Precautions As Directed
Type of Precautions: Seizure
Vital Signs As Directed
Frequency: Per unit guidelines
Oxygen Therapy [O2 Therapy] [RESP] Routine
Titrate/Wean O2 to maintain O2 sat greater than (%): 94
DX Deep Vein Thrombosis Video Routine
07/12/25 11:30
Insulin Aspart Corrective Low [Novolog Flexpen-Low Resistance] See Protocol SC AC
07/12/25 13:00
Acetaminophen [Tylenol] 650 mg PO Q6HPRN PRN mild pain
07/12/25 16:00
Alprazolam [Xanax] 1 mg PO TID
07/12/25 22:00
Quetiapine Fumarate [Seroquel] 400 mg PO HS
07/13/25 06:00
Basic Metabolic Panel IN AM
Complete Blood Count/No Diff IN AM
Glycohemoglobin (HgbA1c) IN AM
LFT [Ohmub-Bmak-Bbgvdju] IN AM
Magnesium IN AM
Phosphorus IN AM
07/15/25 11:00
DC Protocol for Telemetry ONCE
Abnormal Lab Results
07/12/25 07/12/25
06:28
MCHC 32.6 L g/dL
(33.0-37.0)
Absolute Lymphs (auto) 0.9 L 10^3/uL
(1.2-3.4)
Neutrophils % 84.9 H %
(42.2-75.2)
Lymphocytes % 11.3 L %
(20.5-51.1)
Chloride 111 H mmol/L
(98-107)
BUN 21 H mg/dl
(9-20)
Glucose 173 H mg/dl
(70-99)
Calcium 7.8 L mg/dl
(8.4-10.2)
Total Protein 6.0 L g/dl
(6.3-8.2)
07/12/25 05:25
07/12/25 06:28
Vital Signs
Initial and Last Documented VS:
Initial Vital Signs
Pulse Resp BP
73 14 139/64
11/14/25 05:02 07/12/25 05:02 07/12/25 05:02
Last Documented Vital Signs
Temp Pulse Resp BP Pulse Ox
98.3 F 74 18 143/72 96
07/12/25 11:17 07/12/25 11:17 07/12/25 11:17 07/12/25 11:17 07/12/25 11:17
<Steven Silva, DO - Last Filed: 07/12/25 14:17>
Orders/Labs/Results
Orders:
Orders
07/12/25 05:04
CT Head W/o Iv Contrast Urgent
Comment:
Reason For Exam: new onset seizure/headache
07/12/25 05:05
Electrocardiogram (*1) Urgent
Reason for Study: Syncope
Other Reason for Exam: seizure
EKG- Treatment ONCE
07/12/25 05:25
Complete Blood Count/With Diff Urgent
07/12/25 05:54
Levetiracetam Injectable [Keppra] 1,000 mg IV NOW STA
07/12/25 05:55
EEG Extend Monitor >1hr Urgent
07/12/25 Breakfast
Clear Liquid
At Your Request: Full Participation
07/12/25 06:28
Comprehensive Metabolic Panel Urgent
Comment: REDRAW
TSH Reflex To Free T4 Routine
07/12/25 06:34
Admit/Transfer Patient As Directed
Co-Sign Provider:
Level of Care: Inpatient admission
Assign to:: Telemetry
Physician / Group: Mark
Diagnosis: Seizure
Reason for Telemetry: Arrhythmia
Date to Stop Telemetry: 07/15/25
Time to Stop Telemetry: 11:00
Reason for Hospitalization: Seizure
Expected length of stay greater than two midnights?: Yes
ELOS- Estimated Length of Stay in days: 2
I certify the patient meets the requirements for IP care: Yes
PRN Pain Medication Management As Directed
May give lesser potent ordered pain med per pt: Yes
preference::
Protocol:: Medication orders for pain may be administered in a
manner that supports deferring to patient preference
when the pt is:
- Requesting an ordered lesser potent pain medication.
Least to most potent pain medications are defined
as: acetaminophen < NSAID < tramadol < opioids
(morphine, oxycodone, hydromorphone).
- Requesting a lesser dose of the same medication IF
ORDERED.
- Requesting a less intrusive route of administration
if both routes are prescribed by the provider (PO <
IV).
07/12/25 06:38
Code Status As Directed
Resuscitation Status: Full Code
07/12/25 11:11
0.9% Sodium Chloride 1000 ml [Nss] 1,000 ml IV 100 mls/hr
Dextrose 50%-Water [Dextrose 50% Syringe] 12.5 grams IV [id number] PRN
Glucagon [GlucaGen] 1 mg IM PRN PRN
Lorazepam [Ativan] 2 mg IV Q2H PRN
Methadone [Dolophine] 10 mg PO BID
07/12/25 11:11
NEUROLOGY CONSULT Routine
Consulting Provider: Coy Navarrete
Was physician already notified: Yes
Reason for consult: Seizure
Activity As Directed
Activity Level: Bedrest
Bedside Glucose Monitoring As Directed
Frequency: AC&HS
Additional Instructions:: Change to q6h if pt on TPN, tube feeding or not eating
EKG with chest pain [ECG as needed] As Directed
ECG as needed for:: Chest Pain
I/O [Intake/ Output] As Directed
Frequency: Per unit guidelines
Orthostatic Vital Signs As Directed
Orthostatic VS Frequency: BID
Pneumatic Compression Sleeves As Directed
Type: Knee high
Precautions As Directed
Type of Precautions: Seizure
Vital Signs As Directed
Frequency: Per unit guidelines
Oxygen Therapy [O2 Therapy] [RESP] Routine
Titrate/Wean O2 to maintain O2 sat greater than (%): 94
DX Deep Vein Thrombosis Video Routine
07/12/25 11:30
Insulin Aspart Corrective Low [Novolog Flexpen-Low Resistance] See Protocol SC AC
07/12/25 13:00
Acetaminophen [Tylenol] 650 mg PO Q6HPRN PRN mild pain
07/12/25 16:00
Alprazolam [Xanax] 1 mg PO TID
07/12/25 22:00
Quetiapine Fumarate [Seroquel] 400 mg PO HS
07/13/25 06:00
Basic Metabolic Panel IN AM
Complete Blood Count/No Diff IN AM
Glycohemoglobin (HgbA1c) IN AM
LFT [Slulf-Wrzy-Ggfzqob] IN AM
Magnesium IN AM
Phosphorus IN AM
07/15/25 11:00
DC Protocol for Telemetry ONCE
Abnormal Lab Results
07/12/25 07/12/25
06:28
MCHC 32.6 L g/dL
(33.0-37.0)
Absolute Lymphs (auto) 0.9 L 10^3/uL
(1.2-3.4)
Neutrophils % 84.9 H %
(42.2-75.2)
Lymphocytes % 11.3 L %
(20.5-51.1)
Chloride 111 H mmol/L
(98-107)
BUN 21 H mg/dl
(9-20)
Glucose 173 H mg/dl
(70-99)
Calcium 7.8 L mg/dl
(8.4-10.2)
Total Protein 6.0 L g/dl
(6.3-8.2)
07/12/25 05:25
07/12/25 06:28
Vital Signs
Initial and Last Documented VS:
Initial Vital Signs
Pulse Resp BP
73 14 139/64
07/12/25 05:02 07/12/25 05:02 07/12/25 05:02
Last Documented Vital Signs
Temp Pulse Resp BP Pulse Ox
98.3 F 74 18 143/72 96
07/12/25 11:17 07/12/25 11:17 07/12/25 11:17 07/12/25 11:17 07/12/25 11:17
<Milad Fritz, DO - Last Filed: 07/12/25 06:05>
*Pulse Oximetry
SaO2: 93
Oxygen Mode of Delivery: Room air
Patient hypoxic: no
*Critical Care Note
Total Time (30-74mins, 75-104mins- exclusive of procedures): Not Applicable
<Steven Silva, DO - Last Filed: 07/12/25 14:17>
Update Note
Update Note:
8:10 AM PA was called to the room patient with tonic-clonic seizure while on his EEG, stopped with lorazepam apparently has had a few episodes of syncope versus seizure saw PCP cardiology and neurology not on antiepileptics did not receive any
Keppra earlier today looks like the seizure stopped hospitalist neurology notified will load with Keppra
ED Attending Note
<Milad Fritz, DO - Last Filed: 07/12/25 06:05>
-
Portions of this chart may have been created with voice recognition software.� Occasional wrong word or��sound alike� substitutions may have occurred due to the inherent limitations of voice recognition software.
Discharge Plan
Departure
Patient Disposition: Admit
Date of Disposition: 07/12/25
Time of Disposition: 06:03
Admit to: Telemetry
Presentation/result/management discussed w/ accepting MD/DO: Hospitalist
Discharge Problem:
Seizure
Interventions
Interventions:
*Risk Screen - Suicide Last Done: 07/12/25 05:11
*General Assessment Last Done: 07/12/25 05:11
*Neglect/Abuse Screening Last Done: 07/12/25 05:11
*ED- Fall Risk Assessment Last Done: 07/12/25 05:11
*ED COVID-19 Vaccine History Last Done: 07/12/25 05:11
*ED Influenza Vaccine History Last Done: 07/12/25 05:11
*Nursing Disposition Last Done: 07/12/25 11:02
ED- Cardiac Assessment Last Done: 07/12/25 05:33
ED- Neurological Assessment Last Done: 07/12/25 05:33
ED- Pulmonary Assessment Last Done: 07/12/25 05:33
Discharge Date and Time
Discharge Date/Time: 07/12/25 11:03
--- NOTE | 2025-07-12 06:41 | HPS.HSE ---
Family Physician
-
Family Physician: Saumya Hdez
Chief Complaint
-
Seizure activity
History of Present Illness
Patient is a 64y M with PMH significant for DDD and chronic pain syndrome who presents to ED for evaluation after witnessed seizure activity at home this evening. History obtained from patient and his at the bedside. Patient was feeling
well last PM when he went to bed. woke around 5 AM to loud, groaning / grunting noise and found patient to be violently shaking in the bed. He was not responsive to her questions or trying to shake him awake. This shaking episode lasted for
about 5 minutes total. Following this he remained completely unresponsive. 911 was called and when EMS arrived patient was able to open his eyes, but was still not responding to questions, etc. He gradually became more alert / responsive. Upon
arrival to the ED patient is awake and alert.
He complains of a posterior headache. confirms that entire event at home occurred in bed - no fall, injury or trauma.
Patient states that he takes alprazolam in excess of his prescribed amounts. He states that he has been doing this for the past several months due to increased anxiety.
Patient notes that he has been taking six or seven 1mg tabs in a day. As such, he has run out of his Rx early for the past few months. His last dose was Tuesday afternoon.
Patient was admitted here in April for suspected syncope. He reported that he 'passed out three times' at home. It is noted that these were all unwitnessed events. Patient 'guessed' at the number of falls based on the number of blood spots on
his floor (he did strike the back of his head during that episode). Evaluation during his hospital stay was unremarkable.
About one month ago patient had a similar episode at work - also unwitnessed. Co-workers entered the room to find him on the floor.
Patient currently has a 30-day event monitor - but notes that he was not wearing it at the time of this episode (it was charging).
Medical History
Past Medical History
Past Medical History: Reports Other
Additional Past Medical History:
DDD
Chronic Pain Syndrome
Chronic Opioid Dependence
Anxiety / Depression
Chronic BZD Dependence
Hypertension
DM-II
Past Surgical History: Reports Other
Additional Past Surgical History:
Multiple spinal surgeries including cervical fusion
Spine Stimulator Implanted / Removed
Bilateral Elbow Surgery
Spleen Repair
Foot Reconstruction
Cholecystectomy
Bilateral Carpal Tunnel Repair
Social History
Tobacco: Smoker (Current some day smoker.)
Alcohol: Occasional (Very rare.)
Personal:
Family History
Family History: Not pertinent
Allergies / Home Medications
Allergies reflects when Allergies were last updated in [facility].
Home Medications with original date entered in [facility]
Allergy/Medication List:
Allergies
Allergy/AdvReac Type Severity Reaction Status Date / Time
Penicillins Allergy Unknown Verified 07/12/25 05:53
Home Medications
methadone 10 mg tablet 10 mg PO BID 08/14/19
acetaminophen 325 mg tablet (Tylenol) 650 mg PO Q6HPRN PRN mild pain 05/06/25
alprazolam 1 mg tablet (Xanax) 1 mg PO TID 05/06/25
oxycodone 20 mg tablet 20 mg PO Q6 PRN pain 05/06/25
quetiapine 400 mg tablet (Seroquel) 400 mg PO HS 05/06/25
blood sugar diagnostic (Accu-Chek Guide test strips) #100 ea 05/09/25
blood-glucose meter (Accu-Chek Guide Glucose Meter) #1 ea 05/09/25
lancets (Accu-Chek Softclix Lancets) #200 ea 05/09/25
Review of Systems
-
History Source: Patient and Family
A 12 point ROS was completed and negative except as noted: Yes
Constitutional: Denies Fever or Chills
Respiratory: Denies Cough or Trouble Breathing
Cardiac: Denies Chest Pain or Palpitations
Abdomen/GI: Reports Nausea; Denies Abdominal Pain, Vomiting or Diarrhea
: Denies Dysuria or Frequency
Musculoskeletal: Denies Joint Pain or Edema
Neurological: Reports Headache; Denies Dizzy
Psych: Reports Depression and Anxiety
Physical Exam
Vital Signs
Vital Signs
Temp Pulse Resp BP Pulse Ox
97.9 F 71 15 137/64 95
07/12/25 05:03 07/12/25 06:15 07/12/25 06:15 07/12/25 06:00 07/12/25 06:15
Physical Exam
General: Other (64y M in no acute distress at present.)
HEENT: Moist mucous membranes and PERRLA
Respiratory: Clear; No Wheezes, Rales or Rhonchi
Cardiac: S1/S2 and Regular Rhythm; No Murmur
GI: Soft, Non Tender, Non Distended and Normal Bowel Sounds
Musculoskeletal: No Clubbing, No Cyanosis and No Edema
Neuro: AO x 3 and Nonfocal/grossly intact
Laboratory Results
-
07/12/25 05:25
Laboratory Results
Total Bilirubin Cancelled 07/12/25 05:25
AST Cancelled 07/12/25 05:25
ALT Cancelled 07/12/25 05:25
Alkaline Phosphatase Cancelled 07/12/25 05:25
Impression/Plan
-
A/P: Patient is a 64y M with PMH significant for DDD, chronic pain syndrome / chronic opioid and BZD dependence who presents to ED fo evaluation after witnessed seizure-like activity this evening.
Seizure Activity
- Admit for further evaluation and treatment.
- BZD overuse / subsequent withdrawal likely contributing to current presentation (and possibly prior episodes).
- No new injury, trauma today. CT head appears unremarkable to me - formal interpretation pending.
- Resume alprazolam at prescribed dose of 1mg TID for now - would endeavor to wean from this medication as an outpatient.
- Neurology evaluation for additional recommendations.
- EEG.
- Follow for any new / recurrent symptoms or evident seizure activity.
- IV Ativan as needed for any breakthrough seizures.
Chronic Pain Syndrome
Chronic Opioid Dependence
DDD
- Continue current methadone dosing.
- Follow-up with Pain Management as an outpatient.
Anxiety / Depression
Chronic BZD Dependence
- Change alprazolam to prescribed dose of 1mg TID for now.
- Follow-up as an outpatient for efforts at continued weaning / alternate treatment options.
- Continue Seroquel.
- Would consider formal Psych evaluation given poorly controlled anxiety.
DM-II
- A1C during last visit was 6.8%. Not currently on any medication.
- Follow glucose and cover with SSI if needed.
DVT Prophylaxis: SCDs
Code Status: Full
[2025-07-12 07:03] LABS: ALT (SGPT) 15 U/L (0-50); AST (SGOT) 19 U/L (17-59); Albumin 3.5 g/dl (3.5-5.0); Alkaline Phosphatase 59 U/L (38-126); Blood Urea Nitrogen 21 mg/dl (9-20); Calcium 7.8 mg/dl (8.4-10.2); Carbon Dioxide 24 mmol/L (22-30); Chloride 111 mmol/L (98-107); Estimated Creatinine Clearance 112 ml/min; Glucose 173 mg/dl (70-99); Potassium 4.1 mmol/L (3.5-5.1); Sodium 135 mmol/L (135-145); Total Protein 6.0 g/dl (6.3-8.2); eGFR > 60.00
--- NOTE | 2025-07-12 08:32 | CON.NEURO4 ---
Addendum entered and electronically signed by Coy Navarrete MD 07/12/25 17:40:
The patient was seen and examined along with the nurse practitioner Ginny Ferguson, and I agree with her assessment and management plan. Given below is my addendum.
The patient is a 63 years old male who had a seizure at home which was witnessed by his . According to his the patient had stiffness of the arms and jerking of the arms with loss of consciousness. Patient's at bedside reports that
this morning at 0430 they were sleeping in bed when suddenly she heard a loud grunting sound from the patient. This lasted for 5 minutes before spontaneously resolving, at which point she reports he had stopped shaking but was still not responding
to her. On EMS arrival the patient was still not responding but by the time they arrived in the ER he was awake and alert. Around 0800 while EEG monitoring was in place he had a recurrent generalized seizure. The patient appeared to have a
postictal state after the seizure and he gradually was able to communicate and follow verbal commands, after about 15 minutes.
Neurologic examination:
The patient is alert and oriented x 3,
Speech is clear,
There are cranial nerves II to XII grossly intact,
The patient has antigravity strength in bilateral upper and lower extremities,
The sensations are grossly intact,
There was no limb ataxia seen.
ASSESSMENT AND PLAN:
The patient is a 64 years old male who was witnessed to have 2 tonic-clonic seizures today, one was at home which was witnessed by his , and the other one was witnessed in the ER while he was having an EEG done. The EEG was consistent with
epileptiform activity. According to the patient's , he has a several decades history of severe anxiety and had been taking alprazolam for at least 20 years in addition to oxycodone, methadone, and Seroquel. He is prescribed alprazolam three
times a day but often takes 6-7 pills a day then runs out of his prescription early every few months. He ran out of it two days ago on 07/10/25.
The patient was loaded with Keppra 1,500 mg in the ER. Later on, after discussion with the psychiatrist, the patient was started on Depakote 750 mg twice a day and Keppra was stopped.
. Seizure precautions including no driving for 6 months after the seizure and reporting of the event to [facility] as per law.
. MRI of the brain was done on 05/06/2025 that did not show any acute intracranial abnormality.
. CT of the head was done today that did not show any acute intracranial abnormality.
. EEG was abnormal and it showed showed epileptiform activity.
I had a detailed discussion with the patient's regarding the assessment and the management plan, and she verbalized understanding of our discussion.
Original Note:
Consultation - Neurology 4
-
CONSULTING PHYSICIAN: Coy Navarrete MD
REFERRING PHYSICIAN: ER/Dr. Silva
DICTATED BY: GILLIAN Anton
DATE/TIME OF REQUEST: 07/12/25
DATE/TIME OF CONSULTATION: 07/12/25
Reason for Consultation: Recurrent Seizure
History of Present Illness:
This is a 64-year-old right-handed male who has presented to the hospital with report of seizure. Patient is followed by our Neurology service for recurrent 'syncopal' events.
From previous Neurology evaluation by GILLIAN Joaquin on 06/10/25:
'This is a 64-year-old male patient with a past medical history of degenerative disc disease with nerve stimulator, s/p lumbar fusion, chronic pain requiring narcotics, type 2 diabetes mellitus, hypercholesterolemia, and current smoker presented to
[facility] on 05/06/2025 for evaluation of multiple syncopal episodes and falls.He had reported 3 syncopal episodes within 20 minutes without prodrome. He did sustain laceration to back of his head. No incontinence of urine or stool, no tongue laceration.
No history of seizure. He denies ever having any LOC in the past before 05/06/2025.
CT head 05/06/2025-No acute intracranial abnormality.
MRI brain 05/08/2055-No acute intracranial abnormality noted. Sequelae of mild chronic small vessel ischemic disease.
EEG 04/29/2025-unremarkable for age.
ECHO 05/07/2025- LVEF normal 61%. Normal LV size, wall thickness, systolic function. No regional wall motion abnormalities.
Had another episode of syncope at work since discharge. He reports he was at work felt nauseated and the next thing he knew he was up in a chair and EMS was called. He declined hospital evaluation.He has had followed up with his PCP and has
scheduled appointment with cardiology in 2 days, has not yet had. He does follow up with Dr. Khalil for pain management (orders Percocet, methadone, Ritalin-takes infrequently, and Xanax)Reports some ongoing memory issues for quite a few years.
Does not want additional testing at this time.
[id number].'
Patient's at bedside reports that this morning at 0430 they were sleeping in bed when suddenly she heard a loud grunting sound from the patient. She found him on his side, rigid, violently shaking, with his arm crossed in front of his chest.
This lasted for 5 minutes before spontaneously resolving, at which point she reports he had stopped shaking but was still not responding to her. On EMS arrival the patient was still not responding but by the time they arrived in the ER he was awake
and alert. Around 0800 while EEG monitoring was in place he had a recurrent generalized seizure. Patient is currently drowsy but able to participate in conversation and follow commands. He endorses a bifrontal headache that he rates a 7/10. He
denies any dizziness, vision changes, speech/swallow difficulty, numbness, and weakness. His spouse notes that he has a several decades history of severe anxiety and had been taking alprazolam for at least 20 years in addition to oxycodone,
methadone, and Seroquel. He is prescribed alprazolam three times a day but often takes 6-7 pills a day then runs out of his prescription early every few months. He ran out of it two days ago on 07/10/25.
Past Medical History: HTN, NIDDM, DDD, chronic pain syndrome, opioid/benzodiazepine dependence, anxiety, depression
Surgical History: Spine stimulator, lumbar fusion, cholecystectomy, b/l carpal tunnel release, spleen repair, foot reconstruction, b/l elbow surgery
Family History: Reviewed and noncontributory.
Social History: Current smoker. Rare alcohol.
Allergies: Penicillins.
Home Medications: See below.
Review of Symptoms:
Patient denies any fever, chest pain, shortness of breath, GI or symptoms.
�Per the HPI.�All systems are reviewed negative except above.
Physical Exam:
The patient is afebrile, abdomen is nondistended, breathing is unlabored, skin is warm and dry, no edema.
Neurologic Examination:
The patient is drowsy. Opens eyes to voice. He is oriented to person, place, month, not -2025. He is able to follow commands and answer questions appropriately. There is no aphasia or dysarthria. On cranial nerve assessment, pupils are 3 mm
bilateral, round and reactive to light and accommodation. Visual farrell are full. Extraocular movements are intact. Facial sensations are intact and bilaterally symmetrical, there is no facial asymmetry. Hearing is intact bilaterally to normal
conversation volume. Tongue palate and uvula are midline. There is NO tongue laceration. Sternocleidomastoid strengths are full bilaterally. Motor strengths are 5/5 bilateral upper and lower extremities on medical research [place] scale. There is no
drift or involuntary movement noted. Deep tendon reflexes are 2+ bilateral upper and lower extremities and Babinski is absent bilaterally. Sensations of touch is intact and bilaterally symmetrical. Coordination is intact by finger to nose
bilaterally.
Lab Results: See below.
Neuro Imaging:
1. CT Head 07/12/25: No acute intracranial abnormality noted.
2. MRI Brain 05/08/25: No acute intracranial abnormality noted. Sequelae of mild chronic small vessel ischemic disease.
Differentials for the patient's presentation include:
1. Recurrent generalized seizures; etiology is likely benzodiazepine abuse/withdrawal.
Patient has the following risk factors for their symptoms: benzodiazepine abuse/withdrawal
Recommendations:
-Would continue an antiseizure medication at this time as there is a high likelihood he will misuse his medications again and run out.
-Will switch Keppra to Depakote 750mg PO twice a day due to baseline mood disturbance.
-Do not see a role for recurrent neurological imaging at this time as MRI brain was normal in April and this event was likely provoked by benzodiazepine withdrawal.
-Per [place] [employer] law, this event will be reported to [facility]. No driving.
-Continue to follow with psychiatry.-
-Follow-up with Neurology as an outpatient.
Discussed patient care with: Dr. Navarrete, the patient, patient's spouse
Vital Signs and Labs
-
Vital Signs and Labs:
Vital Signs
Temp Pulse Resp BP Pulse Ox
98.2 F 76 16 102/62 97
07/12/25 09:24 07/12/25 09:24 07/12/25 09:24 07/12/25 09:24 07/12/25 09:24
Lab Results
07/12/25 05:25
07/12/25 06:28
Sodium 135 mmol/L (135-145) 07/12/25 06:28
Potassium 4.1 mmol/L (3.5-5.1) 07/12/25 06:28
BUN 21 mg/dl (9-20) H 07/12/25 06:28
Glucose 173 mg/dl (70-99) H 07/12/25 06:28
Calcium 7.8 mg/dl (8.4-10.2) L 07/12/25 06:28
[2025-07-12] MEDS: KEPPRA 1000 MG IV (08:34)
--- NOTE | 2025-07-12 08:34 | W.PN.UPDATE ---
Update Note
Progress Note Update
Necessary because of seizure.
Patient is on EEG and sustained a grand mal seizure witnessed by the manufacturing technician and the at bedside. Witnessed by ER staff as well.
His now coming around and oriented to place and person. Complains of headache. No limb weakness. No sensory disturbances in the hands or legs. No speech impairment. No vision problem.
Grand mal seizures in the clinical suspicion based on current data points a benzo withdrawal.
Patient did receive IV Ativan just now in the ER. Would load him with Keppra to increase the seizure threshold for now.
Neurology consulted.
Consult psychiatrist for treatment of anxiety as he seems to be benzo dependent and also abusing them. He ran out of his medications on Tuesday. Is prescribed 3 times a day but patient says can take up to 6 times a day sometimes. He is also on
methadone and oxycodone for chronic pain.
Discussed with at bedside.
Portions of this chart may have been created with voice recognition software. Occasional wrong word or 'sound alike' substitutions may have occurred due to the inherent limitations of voice recognition software.
[2025-07-12] MEDS: KEPPRA 500 MG IV (08:40)
--- NOTE | 2025-07-12 08:41 | CM ---
Patient seen at bedside in ED with also present. Patient with new witnessed seizure while in ED today. Lives with and son in 3 story home with 1 step at the back entrance. BR on 1st floor. No hx of HC or SNF. No DME that is using.
Pt is independent with ADLs and IADLs. Patient PCP is Dr. Guthrie and she uses the [facility] in [place]. Patient in process of medical treatment plan. CM will continue to follow for discharge planning needs.
Plan; home with VN pending medical treatment plan
[2025-07-12] MEDS: TYLENOL 650 MG PO (08:57)
[2025-07-12] MEDS: TORADOL 15 MG IV (12:00)
[2025-07-12] MEDS: NSS 1000 IV ×2 (12:01→21:38)
--- NOTE | 2025-07-12 12:24 | CON.MD ---
Consultation - Medical
-
patient seen chart reviewed. spoke with nursing, dr harrison, dr moser and ms ayse muse as well as pharmacist ms duran. this consult was done today july 12 2025. the patient's was present at bedside. 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 he has had several surgeries to his neck and lumbar spine. he has had in the past spinal stimulators implanted for pain. he has been seeing dr claudia blackburn for anxiety and
pain mgt. the list of his meds is as follows and was verified in the pdmp: methadone 10 mg tid oxycodone 20 mg qid xanax one mg tid(it is of note that patient admits he has taken six or seven xanax per day and has run out well before the scrip
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 he says he does not take the ritalin and has not taken it in many months as he does not like how it makes him feel. i asked him why he has refilled it and he said dr "Ameya"bere refills his scrips q three months which is how often he sees him and it just is dispensed with the other medications. he is here bc he likely had a sz. there have been several episodes where he has been found 'shaking' or having fallen
presumed to be seizures. during one episode he sustained a laceration of his head when he hit his head. (there is a reference to 'brain surgery in the notes....he did NOT have brain surgery. he said he just had a scalp laceration sutured when he
fell at work.) he has been 'depressed and anxious ' for years. he sees the anxiety as being very related to being in constant pain. he has not been suicidal. he has never been treated with any antidepressants. he had been prescribed valium once
upon a time. sleep is disturbed by pain. seroquel helps with sleep. appetite is diminished. he has lost about ten lbs. he does enjoy some things...being with his . energy level is poor. there is nothing to suggest psychosis. i did not hear
manic mood sx.
past psych hx see above. he has never been hospitalized psychiatrically . he has not been in therapy. he has been seeing dr claudia blackburn for pain mgt
past medical hx patient has had several back surgeries in the cervical and lumbar regions. 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 he has had other ortho procedures as well. rebuilt goot
carpal tunnel. he sustained an injury to his spleen falling and required surgery. hx cholycystectomy lyme amanda dm gout htn hld ecg is wnl. fbs elevated calcium low brain imaging chronic small vessel disease vitals right now wnl.
fh substance abuse depression anxiety
substance abuse see above re opiate and bzp dependence. smokes two cigs daily. denies etoh use
social resides w . four kids four grand kids. three of his kids natural the fourth was left on his doorstep at three months old by a niece and he raised her as his own. 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
busy but not as a book or script editor. had three sibs. one is alive the others young and had addiction issues. grew up in [facility]
mse alert ox3 sundar complexion cooperative not in wd at the moment speech and thought process goal oriented no psychosis mood is anxious and dysphoric not suicidal aver intelligence insight judgment fair
dx unspecified anxiety unspecified depression opiate and bzp dependence chronic pain
plan discussed with katie tavera and ms duran. pdmp was checked and scrips regularly filled for the last year as above. of them only ritalin was not taken as per pat and . will resume methadone at 10 mg tid dose and add 5 mg prn
wd as per cows scores. it is expected he will experience some wd given we are not refilling oxycodone. consider clonidine if wd sx escalate. have reordered xanax 1 mg tid which was prescribed dose and will cover for ? sz with depakote 750 mg bid
which might have some efficacy in allaying anxiety and dysphoria. check level in a few days. 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 down the line would consider cymbalta for pain
anxiety and dysphoria. reduce seroquel to 300 mg daily as it reduces sz threshhold. in my opinion patient should be treated in a rehab or at least iop. i suspect he will not go or at least at this moment that is what he said.
psych will follow.
[2025-07-12] MEDS: NOVOLOG FLEXPEN-LOW RESISTANCE SC ×2 (13:26→19:56)
[2025-07-12] MEDS: DEPAKOTE (12 HR RELEASE) 750 MG PO ×2 (13:26→19:57)
[2025-07-12 13:32] LABS: Glucose - Point of Care 108 mg/dl (70-99)
--- NOTE | 2025-07-12 16:22 | CON.CAR ---
Addendum entered and electronically signed by William Fam MD 07/12/25 17:03:
I reviewed and agree with the note by GILLIAN and it accurately reflects our care.
I saw and evaluated the patient, and I provided the substantive portion of the medical decision making. My assessment and plan is below:
Cardiology is consulted for pauses on telemetry.
64-year-old man with type 2 diabetes, dyslipidemia, chronic pain, and recurrent syncope who presented to the ER after a seizure at home. He had another seizure in the ER. This is believed to be in the setting of benzodiazepine withdrawal. Patient
takes chronic benzodiazepines for depression/anxiety. He often takes extra and then will run out at the end of the month. He ran out of his prescription 2-3 days ago. He was hospitalized at in April following 3 syncopal episodes over 2
hours at home. Telemetry and echocardiogram were unremarkable and he was discharged with an MCOT. He wore this for a period of time at home but he has not sent it back yet. On telemetry at 12:30 PM today, he had 3 sinus pauses (longest 6.4
seconds). He does not think he was sleeping at that time and was asymptomatic.
Physical exam: RRR, no murmur/rub/gallops, trace lower extremity edema, clear lungs
Labs notable for TSH 0.72, creatinine 0.7, hemoglobin 14.3
ECG: Normal sinus rhythm, within normal limits
Syncope with sinus pauses: Patient has recurrent syncope and found to have pauses up to 6.4 seconds on telemetry while awake. We discussed PPM implantation and he is in agreement. This will happen on Tuesday. Monitor on telemetry in the interim.
N.p.o. past midnight on Tuesday.
Original Note:
Consultation
Consultation Request
Date/Time Consultation Requested: 07/12/2025 15:25
Date/Time Consultation Performed: 07/12/2025 16:00
Requesting Provider: Dr. Madsen
Performing Provider: GILLIAN Schwartz for Dr. Fam
Reason for Consultation: Pauses on telemetry
Medical History
-
Chief Complaint: Seizure
History of Present Illness:
Santos Art is a 64-year-old male with chronic pain, migraines, dyslipidemia, type 2 diabetes, and recurrent syncope who presented to the emergency department with a chief complaint of seizure. He was evaluated by neurology. He had a grand mal
seizure after being admitted. This is believed to be in the setting of benzodiazepine withdrawal. He was loaded with Keppra. Cardiology was consulted for pauses on telemetry. He had he had a long 5-second pause on telemetry. Unclear whether or
not he was sleeping. He has untreated TATIANA. He denies chest pain, dizziness, and shortness of breath.
He was about to complete his 30-day MCOT monitor ordered by me but was not wearing it while he was at home.
Past Medical History
Past Medical History: Hypercholesterolemia, NIDDM and Other (Chronic pain requiring narcotics, spinal stimulator)
Past Surgical History: Cholecystectomy, Orthopedic and Tonsilectomy
Social History
Tobacco: Smoker
Alcohol: None
Personal:
Living: With Family
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
Family History
Family History: Reviewed & Not Pertinent (Denies early CAD and SCD.)
Allergies / Home Medications
Allergy/AdvReac Type Severity Reaction Status Date / Time
Penicillins Allergy Unknown Verified 07/12/25 05:53
�Medication �Instructions �Recorded �Confirmed �Type
methadone 10 mg tablet 10 mg PO TID 08/14/19 07/12/25 History
acetaminophen 325 mg tablet 650 mg PO Q6HPRN PRN mild pain 05/06/25 07/12/25 History
(Tylenol)
alprazolam 1 mg tablet (Xanax) 1 mg PO TID Mental Health/Anxiety 05/06/25 07/12/25 History
oxycodone 20 mg tablet 20 mg PO TID 05/06/25 07/12/25 History
quetiapine 400 mg tablet (Seroquel) 400 mg PO HS 05/06/25 07/12/25 History
lisinopril 10 mg tablet 10 mg PO DAILY 07/12/25 07/12/25 History
Review of Systems
-
History Source: Patient
All other systems: Negative unless noted
Constitutional: No Symptoms
EENT: No Symptoms
Respiratory: No Symptoms
Cardiac: No Symptoms
Abdomen/GI: No Symptoms
: No Symptoms
Musculoskeletal: No Symptoms
Skin: No Symptoms
Neurological: Headache
Endocrine: No Symptoms
Hematologic/Lymphatic: No Symptoms
Physical Exam
Vital Signs
Temp Pulse Resp BP Pulse Ox
99.1 F 78 16 131/67 95
07/12/25 15:14 07/12/25 15:14 07/12/25 15:14 07/12/25 15:14 07/12/25 15:14
Lab Results
07/12/25 05:25
07/12/25 06:28
Physical Exam
General: Well Developed, Well Nourished, No Apparent Distress and Comfortable
HEENT: Normocephalic, Anicteric and Moist Mucous Membranes
Respiratory: Clear and Non Labored Respirations
Cardiac: S1/S2 and Regular Rhythm; Negative Peripheral Edema
Breast: Deferred by me
GI: Soft, Non Tender, Non Distended and Normal Bowel Sounds
Rectal: Deferred by Provider
Genito-urinary: No Costovertebral Tender
Musculoskeletal: No Clubbing, No Cyanosis and No Edema
Skin: Warm and Dry
Neuro: Awake and Alert
Hematologic/Lymphatic: No Lymphadenopathy
Psych: Calm
Impression / Plan
-
I/P: 64M with chronic pain, migraines, dyslipidemia, type 2 diabetes, and recurrent syncope who presented to the emergency department with a chief complaint of seizure.
Primary training director: Dr. Valentin
EP: Dr. Schwab
Sinus pause
- 5.7 second pause on telemetry
- Follow telemetry
Seizure, neurology following
Chronic pain syndrome with opioid dependence
Benzodiazepine withdrawal
Type 2 diabetes mellitus, not on any current treatment, per primary service, HgbA1c 6.8%
Hypercholesterolemia, LDL 125, goal LDL should be <70 with his type 2 diabetes mellitus, refused statin
Depression and anxiety with associated substance abuse, psychiatry following
Current smoker, full cessation recommended
Data Reviewed
-
EKG: Report Reviewed by me
Labs: Labs Reviewed by me
Old Records: Reviewed
[2025-07-12] MEDS: DOLOPHINE 10 MG PO ×2 (16:43→21:37)
[2025-07-12] MEDS: XANAX 1 MG PO ×2 (16:43→21:37)
[2025-07-12 18:23] LABS: Glucose - Point of Care 113 mg/dl (70-99)
--- NOTE | 2025-07-12 20:10 | PTCARENOTE ---
Pillows used as seizure pads.
[2025-07-12] MEDS: SEROQUEL 300 MG PO (21:34)
[2025-07-12 21:52] LABS: Glucose - Point of Care 180 mg/dl (70-99)
--- NOTE | 2025-07-12 21:56 | EEG.RPT ---
Electroencephalogram Report
Recording
Date of EE07/12/25
Type of EEG: Routine
Length of EEG recording: one hour and 4 minutes
Done with Video Recording: Yes
Patient Status: Inpatient
Recording Conditions: Awake and Drowsy
Hyperventilation Performed: No
Photic Stimulation Performed: No
Report
Methods:
A 21 channel digitized electroencephalogram was performed. The 10-20 International System of electrode placement was used. ECG was monitored. Video was recorded.
EEG interpretation:
The posterior dominant rhythm reaches up to 10 Hz.
The background EEG activity did not show any significant asymmetry of frequency and amplitude between the hemispheres.
Hyperventilation was not performed.
Photic stimulation was not performed.
There was high amplitude, generalized rhythmic delta activity, interspersed with sharp waves, was seen.
Clinical correlation
This is an abnormal EEG showing generalized epileptiform activity. Clinical correlation is recommended.
--- NOTE | 2025-07-12 22:06 | EEG.RPT ---
Electroencephalogram Report
Recording
Date of EE07/12/25
Type of EEG: Routine
Length of EEG recording: More than one hour
Done with Video Recording: Yes
Patient Status: Inpatient
Recording Conditions: Awake and Drowsy
Hyperventilation Performed: No
Photic Stimulation Performed: No
Report
Clinical methods;
A 21 channel digitized electroencephalogram was performed. The 10-20 International System of electrode placement was used. ECG was monitored. Video was recorded.
EEG Interpretation:
The posterior dominant rhythm reaches up to 10 Hz.
The background activity did not show any significant asymmetry of the frequency or the amplitude between the hemispheres.
Drowsiness was seen.
Hyperventilation was not performed.
Photic stimulation was not performed.
There were runs of high amplitude, generalized, rhythmic delta activity seen, which were followed by generalized slowing of the background activity.
Clinical correlation:
This is an abnormal EEG due to the presence of generalized epileptiform activity. Clinical correlation is recommended.
[2025-07-13 03:33] VITALS: BP 92/52
[2025-07-13] MEDS: NSS 1000 IV ×2 (07:39→18:50)
[2025-07-13 07:51] LABS: Hematocrit 39.7 % (39.0-52.0); Hemoglobin 12.6 g/dL (13.0-18.0); Mean Corp Hgb Conc. 31.7 g/dL (33.0-37.0); Mean Corpuscular Volume 88.8 fL (80.0-94.0); Platelet Count 275 10^3/uL (130-400); Red Cell Dist. Width 14.4 % (11.5-14.5)
[2025-07-13 07:52] VITALS: BP 144/78
[2025-07-13 08:29] LABS: Glucose - Point of Care 123 mg/dl (70-99)
[2025-07-13 08:30] LABS: ALT (SGPT) 14 U/L (0-50); AST (SGOT) 16 U/L (17-59); Albumin 3.7 g/dl (3.5-5.0); Alkaline Phosphatase 62 U/L (38-126); Blood Urea Nitrogen 22 mg/dl (9-20); Calcium 8.6 mg/dl (8.4-10.2); Carbon Dioxide 27 mmol/L (22-30); Chloride 108 mmol/L (98-107); Estimated Creatinine Clearance 69 ml/min; Glucose 92 mg/dl (70-99); Magnesium 2.3 mg/dl (1.6-2.3); Potassium 4.2 mmol/L (3.5-5.1); Sodium 140 mmol/L (135-145); Total Protein 6.0 g/dl (6.3-8.2); eGFR > 60.00
[2025-07-13] MEDS: NOVOLOG FLEXPEN-LOW RESISTANCE SC ×3 (08:48→18:06)
[2025-07-13] MEDS: DEPAKOTE (12 HR RELEASE) 750 MG PO ×2 (08:48→19:58)
[2025-07-13] MEDS: XANAX 1 MG PO ×3 (08:48→21:15)
[2025-07-13] MEDS: ZESTRIL 10 MG PO (08:48)
[2025-07-13] MEDS: DOLOPHINE 10 MG PO ×3 (08:48→21:15)
[2025-07-13 09:14] LABS: Glycohemoglobin (HgbA1c) 6.8 % (4.0-5.9)
--- NOTE | 2025-07-13 11:17 | W.PN.UPDATE ---
Update Note
Progress Note Update
Patient reports he was taking Xanax excessively at home, often double dose. He at least intellectually understands that more is not necessarily better. I talked to him about various techniques of non medication pain management. He states he has some
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
Would continue current meds for now.
[2025-07-13 11:24] VITALS: BP 134/67
--- NOTE | 2025-07-13 12:23 | W.PN.HOSP.TC ---
Today's Communication/Plan
-
Continue telemetry
Continue the current treatments
PPM on Tuesday
Assessment / Plan
Assessment / Plan
A/P: Patient is a 64y M with PMH significant for DDD, chronic pain syndrome / chronic opioid and BZD dependence who presents to ED fo evaluation after witnessed seizure-like activity this evening.
Grand mal seizures suspected secondary to benzo withdrawal
CT imaging without any acute findings
Recent MRI couple months ago showed no evidence of structural brain disease
Neurology input noted
Patient back on his home dose of benzos-Will need slow taper over weeks. Patient is interested to get off benzos.
Significant pauses longest being 6.4 seconds. Recent history of syncope noted. Appreciate cardiology input. Need PPM-plan for Tuesday.
Chronic Pain Syndrome
Chronic Opioid Dependence
DDD
- Continue current methadone dosing.
- Follow-up with Pain Management as an outpatient.
- Would continue to hold his oxycodone. No signs of withdrawal so far
Anxiety / Depression
Chronic BZD Dependence
- Appreciate psychiatry input. Now started on Depakote
DM-II
- A1C during last visit was 6.8%. Not currently on any medication.
- Follow glucose and cover with SSI if needed.
DVT Prophylaxis: SCDs
Code Status: Full
Anticipated Discharge: > 48 hours
Subjective/Interval History
-
Date of Service: July 13, 2025
No seizures today.
Voices no specific complaints.
Denies headache.
Denies any withdrawal symptoms from oxycodone discontinuation -no nausea vomiting or diarrhea. No aches or pains. No mood disturbances.
Questioning me today about his prescriptions for pain and anxiety. He did not realize he would be in trouble like this. He wants to get off his medications. Advised slow tapering down.
Objective Data
-
Labs:
Laboratory Results
07/13/25
07:35
WBC 8.3
Hgb 12.6 L
Hct 39.7
Plt Count 275
Sodium 140
Potassium 4.2
Chloride 108 H
Carbon Dioxide 27
BUN 22 H
Creatinine 1.1
Glucose 92
Calcium 8.6
Total Bilirubin 0.4
AST 16 L
ALT 14
Alkaline Phosphatase 62
Vital Signs:
Vital Signs
Temp Pulse Resp BP Pulse Ox
98.3 F 62 18 144/78 98
07/13/25 07:52 07/13/25 07:52 07/13/25 07:52 07/13/25 07:52 07/13/25 07:52
I&O
07/12/25 07/13/25 07/14/25
06:59 06:59 06:59
Intake Total 260 / 260
Output Total 240 / 240
Balance 20 / 20
Physical Exam
-
General: Comfortable
Respiratory: Non Labored Respirations; Negative Accessory Resp Muscle Use
Cardiac: Regular Rhythm, S1/S2 and Other (Monitor with pauses noted. Currently not bradycardic)
GI: Soft and Nontender
Neuro: AO x 3 and No Motor Deficits
Psych: Calm; Negative Confused
Data Reviewed
-
Labs: Labs Reviewed by me
[2025-07-13 12:35] LABS: Glucose - Point of Care 145 mg/dl (70-99)
--- NOTE | 2025-07-13 13:26 | W.PN.CD ---
Today's Communication / Plan
-
Asymptomatic. No recurrent pauses on telemetry
PPM Tuesday
Impression / Plan
-
I/P: 64M with chronic pain, migraines, dyslipidemia, type 2 diabetes, and recurrent syncope who presented to the emergency department with a chief complaint of seizure, found to have sinus pauses on telemetry.
Primary bid analyst: Dr. Valentin
EP: Dr. Schwab
History of syncope with sinus pauses
- Patient has a history of recent recurrent syncope and was found to have pauses up to 6.4 seconds on telemetry while awake on 07/12/2025
- Follow telemetry
- Plan for PPM on Tuesday
Seizure
- Likely due to benzodiazepine withdrawal
- Continue divalproex per neurology
Chronic pain syndrome with opioid dependence
Benzodiazepine withdrawal
Type 2 diabetes mellitus, not on any current treatment, per primary service, HgbA1c 6.8%
Hypercholesterolemia, LDL 125, goal LDL should be <70 with his type 2 diabetes mellitus, refused statin
Depression and anxiety with associated substance abuse, psychiatry following
Current smoker, full cessation recommended
Subjective: Patient has no complaints.
Physical Exam
Vital Signs/Labs
Vital Signs
Temp Pulse Resp BP Pulse Ox
98.2 F 64 18 134/67 95
07/13/25 11:24 07/13/25 11:24 07/13/25 11:24 07/13/25 11:24 07/13/25 11:24
07/12/25 07/13/25 07/14/25
06:59 06:59 06:59
Actual Weight 198 lb 6.656 oz 193 lb 9.6 oz
07/13/25 07:35
07/13/25 07:35
Magnesium 2.3 mg/dl (1.6-2.3) 07/13/25 07:35
Physical Exam
Constitutional: No acute distress and Comfortable
Cardiovascular: Rhythm & rate is regular, Pedal edema is absent, S1S2 is normal and Murmur/rub/gallop absent
Respiratory: Respiratory effort normal and Lungs clear to auscul.
Neuro/Psych: AO x 3
Data Reviewed
-
Date of Service: July 13, 2025
Medical Decision Making: Reviewed Test Results, Test Interpretation and Review of Case with other Provider
EKG: Tracing Personally Visualized and interpreted
Echo: Report Reviewed by me
Labs: Labs Reviewed by me
--- NOTE | 2025-07-13 14:42 | W.PN.NEURO.1 ---
Today's Communication / Plan
-
The patient is a 64 years old male who was witnessed to have 2 tonic-clonic seizures on 07/12/2025, one was at home which was witnessed by his , and the other one was witnessed in the ER while he was having an EEG done. The EEG was consistent
with epileptiform activity. According to the patient's , he has a several decades history of severe anxiety and had been taking alprazolam for at least 20 years in addition to oxycodone, methadone, and Seroquel. He is prescribed alprazolam three
times a day but often takes 6-7 pills a day then runs out of his prescription early every few months. He ran out of it two days ago on 07/10/25.
The patient was loaded with Keppra 1,500 mg in the ER. Later on, after discussion with the psychiatrist, the patient was started on Depakote 750 mg twice a day and Keppra was stopped.
. MRI of the brain was done on 05/06/2025 that did not show any acute intracranial abnormality.
. CT of the head was done today that did not show any acute intracranial abnormality.
. EEG was abnormal and it showed showed epileptiform activity.
. Seizure precautions including no driving for 6 months after the seizure and reporting of the event to [facility] as per law.
The patient is much more alert today as compared to yesterday and he denies any symptom.
Will sign off. Please call for any question.
Subjective/Objective
Subjective Data
Date of Service: July 13, 2025
The patient is doing well today. He is more alert and is able to communicate better than yesterday.
Neurologic examination:
The patient is alert and oriented x 3,
Speech is clear,
The cranial nerves II through XII are grossly intact,
The patient has antigravity strength in all extremities,
The sensations are intact,
There is no limb ataxia seen.
The patient is a 64 years old male who was witnessed to have 2 tonic-clonic seizures on 07/12/2025, one was at home which was witnessed by his , and the other one was witnessed in the ER while he was having an EEG done. The EEG was consistent
with epileptiform activity. According to the patient's , he has a several decades history of severe anxiety and had been taking alprazolam for at least 20 years in addition to oxycodone, methadone, and Seroquel. He is prescribed alprazolam three
times a day but often takes 6-7 pills a day then runs out of his prescription early every few months. He ran out of it two days ago on 07/10/25.
The patient was loaded with Keppra 1,500 mg in the ER. Later on, after discussion with the psychiatrist, the patient was started on Depakote 750 mg twice a day and Keppra was stopped.
. Seizure precautions including no driving for 6 months after the seizure and reporting of the event to [facility] as per law.
. MRI of the brain was done on 05/06/2025 that did not show any acute intracranial abnormality.
. CT of the head was done today that did not show any acute intracranial abnormality.
. EEG was abnormal and it showed showed epileptiform activity.
Objective Data
Vital Signs
Temp Pulse Resp BP Pulse Ox
36.8 C 64 18 134/67 95
07/13/25 11:24 07/13/25 11:24 07/13/25 11:24 07/13/25 11:24 07/13/25 11:24
Lab Results
07/13/25 07:35
07/13/25 07:35
Sodium 140 mmol/L (135-145) 07/13/25 07:35
Potassium 4.2 mmol/L (3.5-5.1) 07/13/25 07:35
BUN 22 mg/dl (9-20) H 07/13/25 07:35
Glucose 92 mg/dl (70-99) 07/13/25 07:35
Calcium 8.6 mg/dl (8.4-10.2) 07/13/25 07:35
Phosphorus 2.8 mg/dl (2.5-4.5) 07/13/25 07:35
Patient Allergies
Penicillins Allergy (Verified 07/12/25 05:53)
Unknown
Vital Signs and Labs
-
Vital Signs and Labs:
Vital Signs
Temp Pulse Resp BP Pulse Ox
36.8 C 65 18 144/66 96
07/13/25 15:33 07/13/25 15:33 07/13/25 15:33 07/13/25 15:33 07/13/25 15:33
Lab Results
07/13/25 07:35
07/13/25 07:35
Sodium 140 mmol/L (135-145) 07/13/25 07:35
Potassium 4.2 mmol/L (3.5-5.1) 07/13/25 07:35
BUN 22 mg/dl (9-20) H 07/13/25 07:35
Glucose 92 mg/dl (70-99) 07/13/25 07:35
Calcium 8.6 mg/dl (8.4-10.2) 07/13/25 07:35
Phosphorus 2.8 mg/dl (2.5-4.5) 07/13/25 07:35
Ur Buprenorphine Negative (Negative) 07/13/25 15:15
Medications
-
Active Medications
Generic Name Dose Route Start Last Admin
Trade Name Freq PRN Reason Stop Dose Admin
Acetaminophen 650 mg 07/12/25 13:00
Acetaminophen 325 Mg Tablet PO 08/09/25 12:59
Q6HPRN PRN
mild pain
Alprazolam 1 mg 07/12/25 16:00 07/13/25 16:46
Alprazolam 1 Mg Tablet PO 08/09/25 15:59 1 mg
TID LINDY Administration
Dextrose 12.5 grams 07/12/25 11:11
Dextrose 50% (0.5 Grams/Ml) 50 Ml Syringe IV 08/09/25 11:10
[id number] PRN
hypoglycemia
Protocol
Divalproex Sodium 750 mg 07/12/25 13:00 07/13/25 08:48
Divalproex 250 Mg Delayed Release (12 Hr) Tablet PO 08/09/25 12:59 750 mg
BID LINDY Administration
Glucagon 1 mg 07/12/25 11:11
Glucagon 1 Mg Vial IM 08/09/25 11:10
PRN PRN
hypoglycemia
Protocol
Insulin Aspart 0 units 07/12/25 11:30 07/13/25 18:06
Insulin Aspart Low Resistance 300 Units/3 Ml Pen.Injctr SC 08/09/25 11:29 Not Given
AC LINDY
Protocol
Lisinopril 10 mg 07/13/25 08:00 07/13/25 08:48
Lisinopril 10 Mg Tablet PO 08/10/25 07:59 10 mg
DAILY LINDY Administration
Lorazepam 2 mg 07/12/25 11:11
Lorazepam 2 Mg/Ml Vial IV 08/09/25 11:10
Q2H PRN
Seizure activity
Methadone HCl 10 mg 07/12/25 16:00 07/13/25 16:46
Methadone 10 Mg Tablet PO 07/26/25 15:59 10 mg
TID LINDY Administration
Methadone HCl 5 mg 07/12/25 12:22
Methadone 5 Mg Tablet PO 07/26/25 12:21
DAILYPRN PRN
COWS>8
Quetiapine Fumarate 300 mg 07/12/25 22:00 07/12/25 21:34
Quetiapine 100 Mg Tablet PO 08/09/25 21:59 300 mg
HS LINDY Administration
Sodium Chloride 1 ml 07/12/25 11:22
Nss (Pf) 10 Ml Vial For Ativan 2 Mg Dose IV 08/09/25 11:21
Q2HPRN PRN
IV LORAZEPAM DILUTION
Sodium Chloride 0 flush 07/12/25 12:00
Sodium Chloride 0.9% (Flush) Syringe IV 08/09/25 11:59
PER PROTOCOL LINDY
Home Medications
�Medication �Instructions �Recorded
methadone 10 mg tablet 10 mg PO TID Pain 08/14/19
acetaminophen 325 mg tablet 650 mg PO Q6HPRN PRN mild pain 05/06/25
(Tylenol)
alprazolam 1 mg tablet (Xanax) 1 mg PO TID Mental Health/Anxiety 05/06/25
oxycodone 20 mg tablet 20 mg PO TID Pain 05/06/25
quetiapine 400 mg tablet (Seroquel) 400 mg PO HS Mental Health/Anxiety 05/06/25
lisinopril 10 mg tablet 10 mg PO DAILY Blood Pressure 07/12/25
[2025-07-13 15:33] VITALS: BP 141/67; BP 144/66; BP 145/75; PULSE 64; PULSE 65; PULSE 69
[2025-07-13 17:24] LABS: Glucose - Point of Care 119 mg/dl (70-99)
[2025-07-13 19:21] VITALS: BP 134/73
--- NOTE | 2025-07-13 19:36 | W.PN.NEURO.1 ---
Today's Communication / Plan
-
. MRI of the brain was done on 05/06/2025 that did not show any acute intracranial abnormality.
. CT of the head was done today that did not show any acute intracranial abnormality.
. EEG was abnormal and it showed showed epileptiform activity.
Today the patient is much more alert and is able to follow verbal commands well. He can also communicate very well.
The patient appears to have returned to his baseline.
Continue Depakote 750 mg twice a day. Follow liver function tests as an outpatient.
. Seizure precautions including no driving for 6 months after the seizure and [facility].
Will sign off. Please call if you have any question.
Subjective/Objective
Subjective Data
Date of Service: July 13, 2025
The patient is a 64 years old male who was witnessed to have 2 tonic-clonic seizures on 07/12/2025, one was at home which was witnessed by his , and the other one was witnessed in the ER while he was having an EEG done. The EEG was consistent
with epileptiform activity. According to the patient's , he has a several decades history of severe anxiety and had been taking alprazolam for at least 20 years in addition to oxycodone, methadone, and Seroquel. He is prescribed alprazolam three
times a day but often takes 6-7 pills a day then runs out of his prescription early every few months. He ran out of it two days ago on 07/10/25.
The patient was loaded with Keppra 1,500 mg in the ER. Later on, after discussion with the psychiatrist, the patient was started on Depakote 750 mg twice a day and Keppra was stopped.
. Seizure precautions including no driving for 6 months after the seizure and reporting of the event to [facility] as per law.
. MRI of the brain was done on 05/06/2025 that did not show any acute intracranial abnormality.
. CT of the head was done today that did not show any acute intracranial abnormality.
. EEG was abnormal and it showed showed epileptiform activity.
Today the patient is much more alert and is able to follow verbal commands well. He can also communicate very well.
Continue Depakote 750 mg twice a day.
Objective Data
Vital Signs
Temp Pulse Resp BP Pulse Ox
36.8 C 65 18 144/66 96
07/13/25 15:33 07/13/25 15:33 07/13/25 15:33 07/13/25 15:33 07/13/25 15:33
Lab Results
07/13/25 07:35
07/13/25 07:35
Sodium 140 mmol/L (135-145) 07/13/25 07:35
Potassium 4.2 mmol/L (3.5-5.1) 07/13/25 07:35
BUN 22 mg/dl (9-20) H 07/13/25 07:35
Glucose 92 mg/dl (70-99) 07/13/25 07:35
Calcium 8.6 mg/dl (8.4-10.2) 07/13/25 07:35
Phosphorus 2.8 mg/dl (2.5-4.5) 07/13/25 07:35
Ur Buprenorphine Negative (Negative) 07/13/25 15:15
Patient Allergies
Penicillins Allergy (Verified 07/12/25 05:53)
Unknown
[2025-07-13] MEDS: SEROQUEL 300 MG PO (21:15)
[2025-07-13 22:12] LABS: Glucose - Point of Care 184 mg/dl (70-99)
[2025-07-13 23:32] VITALS: BP 132/73
[2025-07-14 03:32] VITALS: BP 113/64
[2025-07-14 07:37] VITALS: BP 127/63
[2025-07-14 07:44] LABS: Glucose - Point of Care 107 mg/dl (70-99)
[2025-07-14] MEDS: DEPAKOTE (12 HR RELEASE) 750 MG PO ×2 (09:58→20:17)
[2025-07-14] MEDS: DOLOPHINE 10 MG PO ×3 (09:58→21:22)
[2025-07-14] MEDS: XANAX 1 MG PO ×3 (09:58→21:22)
[2025-07-14] MEDS: ZESTRIL 10 MG PO (09:59)
[2025-07-14] MEDS: NOVOLOG FLEXPEN-LOW RESISTANCE SC ×3 (09:59→17:48)
--- NOTE | 2025-07-14 10:31 | W.PN.HOSP.TC ---
Today's Communication/Plan
-
Permanent pacemaker tomorrow
Assessment / Plan
Assessment / Plan
A/P: Patient is a 64y M with PMH significant for DDD, chronic pain syndrome / chronic opioid and BZD dependence who presents to ED fo evaluation after witnessed seizure-like activity this evening.
Grand mal seizures suspected secondary to benzo withdrawal
CT imaging without any acute findings
Recent MRI couple months ago showed no evidence of structural brain disease
Neurology input noted
Patient back on his home dose of benzos-Will need slow taper over weeks. Patient is interested to get off benzos.
Advised no driving for 6 months.
Significant pauses longest being 6.4 seconds. Recent history of syncope noted. Appreciate cardiology input. Need PPM-plan for Tuesday.
Chronic Pain Syndrome
Chronic Opioid Dependence
DDD
- Continue current methadone dosing.
- Follow-up with Pain Management as an outpatient.
- Would continue to hold his oxycodone. No signs of withdrawal so far
Anxiety / Depression
Chronic BZD Dependence
- Appreciate psychiatry input. Now started on Depakote
DM-II
- A1C during last visit was 6.8%. Not currently on any medication.
- Follow glucose and cover with SSI if needed.
DVT Prophylaxis: SCDs
Code Status: Full
Anticipated Discharge: 24 - 48 hours
Subjective/Interval History
-
Date of Service: July 14, 2025
No further seizures. No events on the monitor. Denies any nausea vomiting.
No chest pain or shortness of breath. No dizziness.
Objective Data
-
Vital Signs:
Vital Signs
Temp Pulse Resp BP Pulse Ox
97.6 F 55 18 127/63 97
07/14/25 07:37 07/14/25 07:37 07/14/25 07:37 07/14/25 07:37 07/14/25 07:37
I&O
07/13/25 07/14/25 07/15/25
06:59 06:59 06:59
Intake Total 260 / 260 1080 / 1080
Output Total 240 / 240 1650 / 1650
Balance -570 / -570
Physical Exam
-
General: Comfortable
Respiratory: Non Labored Respirations; Negative Accessory Resp Muscle Use
Cardiac: Regular Rhythm and S1/S2; Negative Tachycardic
GI: Soft
Neuro: AO x 3; Negative Tremors
Psych: Calm; Negative Confused or Agitated
Data Reviewed
-
Labs: Labs Reviewed by me
[2025-07-14 11:26] VITALS: BP 141/67
--- NOTE | 2025-07-14 11:43 | W.PN.UPDATE ---
Update Note
Progress Note Update
Patient reports he is frequently in pain, particularly lying in bed. He also reports significant anxiety although he does not appear anxious this AM. His who was present was concerned as she witnessed the withdrawal seizure which brought him to
the hospital.
I discussed possible relaxation techniques with could help as an alternative to excessive medication consumption; he was rather sceptical.
I also recommended OP therapy which he said he would consider.
Will continue F/U
Depakote level ordered for tomorrow.
[2025-07-14 13:25] LABS: Glucose - Point of Care 139 mg/dl (70-99)
--- NOTE | 2025-07-14 14:07 | W.PN.CD ---
Today's Communication / Plan
-
NPO pMN for PPM tomorrow
Impression / Plan
-
I/P: 64M with chronic pain, migraines, dyslipidemia, type 2 diabetes, and recurrent syncope who presented to the emergency department with a chief complaint of seizure, found to have sinus pauses on telemetry.
Primary wool hat hydraulicker: Dr. Valentin
EP: Dr. Schwab
History of syncope with sinus pauses
- Patient has a history of recent recurrent syncope and was found to have pauses up to 6.4 seconds on telemetry while awake on 07/12/2025
- Follow telemetry
- Plan for PPM on Tuesday
Seizure
- Likely due to benzodiazepine withdrawal
- Continue divalproex per neurology
Chronic pain syndrome with opioid dependence
Benzodiazepine withdrawal
Type 2 diabetes mellitus, not on any current treatment, per primary service, HgbA1c 6.8%
Hypercholesterolemia, LDL 125, goal LDL should be <70 with his type 2 diabetes mellitus, refused statin
Depression and anxiety with associated substance abuse, psychiatry following
Current smoker, full cessation recommended
Subjective: Patient has no complaints.
Physical Exam
Vital Signs/Labs
Vital Signs
Temp Pulse Resp BP Pulse Ox
97.6 F 64 18 141/67 96
07/14/25 11:26 07/14/25 11:26 07/14/25 11:26 07/14/25 11:26 07/14/25 11:26
07/13/25 07/14/25 07/15/25
06:59 06:59 06:59
Actual Weight 193 lb 9.6 oz
07/13/25 07:35
07/13/25 07:35
Magnesium 2.3 mg/dl (1.6-2.3) 07/13/25 07:35
Physical Exam
Constitutional: No acute distress and Comfortable
Cardiovascular: Rhythm & rate is regular, Pedal edema is absent, S1S2 is normal and Murmur/rub/gallop absent
Respiratory: Respiratory effort normal and Lungs clear to auscul.
Neuro/Psych: AO x 3
Data Reviewed
-
Date of Service: July 14, 2025
Medical Decision Making: Reviewed Test Results, Test Interpretation and Review of Case with other Provider
EKG: Tracing Personally Visualized and interpreted
Echo: Report Reviewed by me
Labs: Labs Reviewed by me
[2025-07-14 15:27] VITALS: BP 136/67
[2025-07-14 17:35] LABS: Glucose - Point of Care 140 mg/dl (70-99)
[2025-07-14] MEDS: SEROQUEL 300 MG PO (21:22)
[2025-07-14 23:35] VITALS: BP 143/75
[2025-07-14 23:40] LABS: Glucose - Point of Care 120 mg/dl (70-99)
[2025-07-15] VITALS (10 sets, daily range): BP systolic 110–168; BP diastolic 62–82; PULSE 59–68
[2025-07-15 05:58] LABS: Glucose - Point of Care 95 mg/dl (70-99)
[2025-07-15] MEDS: NOVOLOG FLEXPEN-LOW RESISTANCE SC ×3 (07:45→18:00)
[2025-07-15] MEDS: ZESTRIL 10 MG PO (07:51)
[2025-07-15] MEDS: DOLOPHINE 10 MG PO ×2 (07:51→21:14)
[2025-07-15] MEDS: XANAX 1 MG PO ×3 (07:51→21:14)
[2025-07-15] MEDS: DEPAKOTE (12 HR RELEASE) 750 MG PO ×2 (07:51→21:14)
[2025-07-15 08:22] LABS: Depakane 77.0 ug/ml (50.0-120.0)
--- NOTE | 2025-07-15 10:45 | W.PN.UPDATE ---
Update Note
Progress Note Update
patient seen chart reviewed. discussed with nursing. mr hopkins is slated for pacemaker today. he asked me if i thought his running out of xanax had caused the cardiac arrthythmia. i explained to him that it was more likely there were several issues
and that seizure is likely the result of xanax wd. explained how the cardiac sonographer had captured a period where his heartbeat had paused and the pacemaker is intended to keep this from happening. he is not in a lot of pain at this moment although
says when he works he walks about five to seven miles daily and he is often in pain. be that as it may i am not sure methadone oxycodone and xanax are treatments of choice here. suggested consideration be given to cymblata gabapentin which he has
not tried and which might help w anxiety dysphoria and pain. he will need to discuss with his psychiatrist. has an appt early july. the other issue. he is he says not taking ritalin. he needs them to stop picking it up at the pharmacy.
explained to him that it appears in the pdmp whether he is taking it or not and it is not a ggod thing to be collecting bottles of ritalin for a lot of reasons. he wants to be dc tomorrow. he is not interested in rehab. from psych point of view i
don't think there is much more we can do would also suggest Physical therapy. he says it gave him more pain. he could do PT in water bath, massage, etc. there are more modalities that standard PT have dc'ed the prn methadone. he is not at this
point going to wd from oxycodone which is why it was entered.
--- NOTE | 2025-07-15 11:20 | W.PN.HOSP.TC ---
Today's Communication/Plan
-
await PPM placement
monitor post op
cards recs
methadone/ativan/seroqeul
cont depakote
Assessment / Plan
Assessment / Plan
A/P: Patient is a 64y M with PMH significant for DDD, chronic pain syndrome / chronic opioid and BZD dependence who presents to ED fo evaluation after witnessed seizure-like activity this evening.
Grand mal seizures suspected secondary to benzo withdrawal
CT imaging without any acute findings
Recent MRI couple months ago showed no evidence of structural brain disease
Neurology input noted
Patient back on his home dose of benzos-Will need slow taper over weeks-defer to outpatient pain managmenet/psychiatry.
States does not have Driving license as it was taken away long time ago.
Significant pauses longest being 6.4 seconds.
-Recent history of syncope noted.
-Monitor on tele
- Appreciate cardiology input. Plan for PPM today.
Chronic Pain Syndrome
Chronic Opioid Dependence
DDD
- Continue current methadone dosing.
- Follow-up with Pain Management as an outpatient.
- Would continue to hold his oxycodone. No signs of withdrawal so far
Anxiety / Depression
Chronic BZD Dependence
- Appreciate psychiatry input. Now started on Depakote 750mg BID. Seroquel dose decreased to 300mg qhs
DM-II
- A1C during last visit was 6.8%. Not currently on any medication.
- Follow glucose and cover with SSI if needed. POC am 95
- OP pcp f/u
DVT Prophylaxis: SCDs
Code Status: Full
Anticipated Discharge: Within 24 hours
Subjective/Interval History
-
Date of Service: July 15, 2025
sitting in chair
no overnight events
Objective Data
-
Vital Signs:
Vital Signs
Temp Pulse Resp BP Pulse Ox
98.1 F 53 18 148/75 100
07/15/25 07:45 07/15/25 07:51 07/15/25 07:45 07/15/25 07:51 07/15/25 07:45
I&O
07/14/25 07/15/25 07/16/25
06:59 06:59 06:59
Intake Total 1080 / 1080 1200 / 1200
Output Total 1650 / 1650
Balance -570 / -570 1200 / 1200
Physical Exam
-
General: No Apparent Distress and Comfortable
HEENT: Normocephalic, Nose Appears Normal and Ears Appear Normal
Respiratory: Non Labored Respirations; Negative Accessory Resp Muscle Use
Cardiac: Regular Rhythm (tele); Negative Tachycardic
GI: Nondistended
Neuro: Awake, Alert, Oriented, AO x 3 and Nonfocal/Grossly Intact; Negative Tremors
Psych: Calm; Negative Confused or Agitated
--- NOTE | 2025-07-15 12:10 | CM ---
Spoke with patient in room.
He said he does not want VN at discharge.
His Saumya will drive him home.
PLAN Home no needs
[2025-07-15 13:12] LABS: Glucose - Point of Care 100 mg/dl (70-99)
[2025-07-15] MEDS: VANCOCIN 530 MG IV (14:42)
--- NOTE | 2025-07-15 15:12 | W.PN.CD ---
Today's Communication / Plan
-
- PPM today
Impression / Plan
-
I/P: 64M with chronic pain, migraines, dyslipidemia, type 2 diabetes, and recurrent syncope who presented to the emergency department with a chief complaint of seizure, found to have sinus pauses on telemetry.
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 Valentin
EP: Dr. Schwab
History of syncope with sinus pauses
- Patient has a history of recent recurrent syncope and was found to have pauses up to 6.4 seconds on telemetry while awake on 07/12/2025
- Follow telemetry
- Plan for PPM today
- Procedure explained in detail. Consent obtained. PPM today.
Seizure
- Likely due to benzodiazepine withdrawal vs asystole.
- Continue divalproex per neurology
Chronic pain syndrome with opioid dependence
Benzodiazepine withdrawal
Type 2 diabetes mellitus, not on any current treatment, per primary service, HgbA1c 6.8%
Hypercholesterolemia, LDL 125, goal LDL should be <70 with his type 2 diabetes mellitus, refused statin
Depression and anxiety with associated substance abuse, psychiatry following
Current smoker, full cessation recommended
Subjective: Patient has no complaints.
Physical Exam
Vital Signs/Labs
Vital Signs
Temp Pulse Resp BP Pulse Ox
98.1 F 62 13 145/79 98
07/15/25 14:35 07/15/25 15:02 07/15/25 15:02 07/15/25 15:02 07/15/25 15:02
07/13/25 07:35
07/13/25 07:35
Magnesium 2.3 mg/dl (1.6-2.3) 07/13/25 07:35
Physical Exam
Constitutional: No acute distress and Comfortable
EENT: Anicteric and Moist mucous membranes
Cardiovascular: Rhythm & rate is regular, Pedal edema is absent and JVD pressure is normal
Respiratory: Respiratory effort normal and Lungs clear to auscul.
GI: Soft, Distention absent and Normal bowel sounds
Neuro/Psych: Alert, Oriented, AO x 3 and Motor deficits absent
Other: Cardiac Device Site
Data Reviewed
-
Date of Service: July 15, 2025
Medical Decision Making: Reviewed Test Results, Test Interpretation and Review of Case with other Provider
EKG: Tracing Personally Visualized and interpreted
Echo: Report Reviewed by me
Labs: Labs Reviewed by me
Old Records: Reviewed
--- NOTE | 2025-07-15 16:57 | ITS.CL.PACE ---
Advertising Operations Manager - Pacemaker Implant
Pacemaker Implant
Procedure Report:
Left Bundle Branch pacing Dual Chamber Permanent Pacemaker Placement:
Mr. Austin is a 64 years old gentleman with recurrent syncope and long pauses wit bradycardia is recommended for pacemaker.
Indications:
Sinus arrest
Date of the Procedure: 07/15/2025
Pre-Operative Diagnosis: Sinus arrest
Post-Operative Diagnosis: Sinus arrest
Procedure Performed: Conduction system pacing for dual-chamber pacemaker implanted
Performing physician:
Linh Schwab MD
Assistants:
EP staff
Anesthesia:
See anesthesia records
Detailed Description of the Procedure:
The patient was identified using hospital identification and informed consent obtained for the procedure. The risks were explained to the patient and the family including, but not limited to: Bleeding, infection, arrhythmia, stroke,
vascular/cardiac/lung puncture, surgery, pacemaker dependency/device malfunction. All questions were answered.
Anesthesia service provided sedation as reported separately. Antibiotics administered IV for risk of bacterial colonization. After obtaining informed and written consent, the patient was brought to the electrophysiology laboratory.
The initial rhythm was sinus.
A timeout was performed immediately before the procedure. The left chest was prepped from the nipple to the angle of the jaw with chlorhexidine, and draped following sterile technique in usual routine.
A surgical pause and time out was performed immediately prior to the procedure with review of her medical history, recent labs, allergies and medications with site of procedure identified and consent noted in the chart. Antibiotics pre operatively
given. All team members concurred.
A venogram was obtained with patent axillary vein noted. The course of the axillary vein and the bony landmarks were identified. Using the ultrasound the axillary vein route was determined.
Following infiltration with local anesthetic, the axillary vein was accessed under fluoro and the venogram guidance using the micro-puncture apparatus. The guide wires were advanced to the inferior vena cava (IVC) under flouro guidance.
A subcutaneous pocket was created with blunt dissection and use of electrocautery. Hemostasis was excellent.
The guide wire was advanced to the RA and was advanced to the RV. The preformed curved long hemostatic peel away HIS sheath was advanced into the RV cavity. A left bundle pacing wire was advanced into the sheath to the tip with ventricular signals
noted with unipolar manner. The HIS location was identified under guidance of the flouroscopy and the pacing wire signals. The sheath with the pacing lead was moved deeper into the RV cavity on the septum at a more inferior and distal to the HIS
signals.
Once adequate signals were noted on the electrograms of the pacing lead in the sheath with W pattern signals on the RV septum, the lead was advanced and clockwise turns were done under fluoroscopic guidance. The septum was engaged and the lead was
paced intermittently after every 2-3 turns. There was sheath approximation confirmed on KENYAN view and the pacing lead was advanced with clockwise turns into the septal location. The septum was successfully engaged. The lead was paced and septal
pacing was noted. The sheath was placed again to the septum and the lead was advanced 2-3 turns with pacing with each advancement. The ventricular capture was monitored throughout and the captures gradually changed from RV pacing to non-selective
pacing to LBB pacing with R wave on V1.
With RBBB pattern noted on the pacing lead, it was decided to accept the location as optimal location. The long guiding sheath was cut and removed from the RV without change in lead position, impedance, sensing, or capture.
Then the right atrial lead was implanted. The RA lead was anchored in the right atrial appendage with engaging the active-fixation apparatus.
There was excellent sensing, pacing, and impedance from the leads, with no diaphragmatic stimulation at 10 V output.�Bovie cautery, antibiotics, and fluoroscopy were used.
The leads were sutured to the underlying pectoralis fascia with 2-0 Ti-Cron stitches. A purse string suture was deployed using the 2-0 Vicryl suture.
The leads were attached to the pulse generator in standard configuration with acceptable sensing and threshold parameters. The pocket was irrigated with antibiotic solution; the pocket was inspected with no active bleeding noted. The device and the
leads were placed in the pocket.
A Tyrx pouch was placed around the device and the leads.
Deep subcutaneous tissues were closed with 3 layers of 2-0V loc sutures; and the dermis was reopposed using a running 4-0 Biosyn subcuticular suture. Sponge counts / sharp counts were appropriate.
Procedure End:
The procedure was tolerated well. Aquacel bandaged was applied. A pressure dressing was applied.
Estimated Blood loss:
5 cc
Specimens Removed:
No cultures and no specimens were obtained. No intraoperative pathology was identified.
Urine output:
None
Packs / Drains/ Tubes:
None
Instrument / Sponge Count Correct:
Yes
Flouro time:
4.2min / 26.8 mGy
Complications of the Procedure:
None
Condition of Patient at Time of Transfer:
Hemodynamically stable with no neurological or vascular compromise.
Device information:�
Generator: Tykli; Model: W1DR01; Serial # [id number]�
Atrial Lead: BR Supplytronic; Model: 5076-52; Serial # [id number]
Measured data in the right atrium was sensing of 2.2mV, impedance of 560 ohms and threshold of 0.75 V at 0.4ms�
LBB pacing lead: Medtronic; Model: 3830-69; Serial # [id number]
Measured data on the RV lead was sensing of 12 mV, impedance of 830 ohms and threshold of 1.0V at 0.4ms
PROGRAMMING PARAMETERS:�
Amor parameter settings were AAIR <=> DDDR 60-130 �
Paced AV interval: 180ms
Sensed AV interval: 150 ms.
Rate Adaptive A-V Interval: off
Mode switch ON
Summary:
Successful implantation of MRI compatible LBB pacing dual chamber pacemaker.
Results/Recommendations:
-Please follow up CXR�
-Please provide patient with adequate pain control�
Instructions to be given to patient:�
- Please follow up with [facility] at [address] [place] [address] ([phone]) to get your wound checked in 2 weeks of your discharge. Then follow with
- Do not wet incision site until after it is evaluated at cardiology clinic. No baths or showers until then. Sponge baths / showers are OK but dab dry the dressing after it is wet.�
- Allow 'steri strips' to fall off on their own�
- Do not lift left elbow above shoulder, particularly with sudden jerking movements, for 1 month�
- Do not lift anything weighing more than 5 pounds with the left arm for 1 month�
- If you notice any fevers, shortness of breath, lightheadedness, chest pain, or worsening swelling in the wound site, please contact the arrhythmia clinic, contact your ring spinner, or present to the hospital for evaluation.�
Linh Schwab MD
Electrophysiology
[2025-07-15 17:40] LABS: Glucose - Point of Care 102 mg/dl (70-99)
[2025-07-15] MEDS: DOLOPHINE PO (18:00)
--- NOTE | 2025-07-15 18:00 | RR ---
A Rapid Response was called on this patient, please see Rapid Response form.
Upon returning to unit after pacemaker placement procedure, patient was hypoxic; requiring increased oxygen; tachypneic; lungs sounded rhonchorus ; patient's eyes rolled back in his head and had brief moment of unresponsiveness; RR was called.
--- NOTE | 2025-07-15 18:11 | W.PN.UPDATE ---
Update Note
Progress Note Update
rapid repsonse called for lethargy and hypoxia
had just gotten back to the room from EP lab for PPM placement. Aspirated on the tabele
--during the procedure
----recieved fent, ketamine and prop along with 450cc of ivf
lethargic hypoxic and wheezy on exam
acute hypoxic respiratory filure secondary to acute aspiration post procedure
albuterol provided, 15l midflow and cxr
cxr without evidence of aspiration
wheezing improved post neb treatment
lethargy resolved.
q4nebs prn for sobw
has ongoing throat pain
- chloraseptic spray
have notifeied bedside nurse to have the night house leaf coverer reeval at 8pm
if lethargy continues to improve and hypoxia improving then he might be able to have a diet and something to drink
[2025-07-15] MEDS: SEROQUEL 300 MG PO (21:15)
[2025-07-15 21:34] LABS: Glucose - Point of Care 124 mg/dl (70-99)
[2025-07-15] MEDS: VENTOLIN NEBULES 2.5 MG INH (22:49)
[2025-07-16] VITALS (7 sets, daily range): BP systolic 103–138; BP diastolic 52–66
--- NOTE | 2025-07-16 06:47 | PTCARENOTE ---
Addendum entered by Edgardo Bo RN 07/16/25 07:48:
During morning rounds, pt found w/o O2-SpO2 at 82%. O2 applied and pt SpO2 increased to 86% on 4L. Pt once again reinforced to keep NC in place. Dayshift RN at bedside with this RN. Pt agrees to have AM lab work completed at this time.
Original Note:
note to assess patient via HEALTH AIDE at 1999. Pt found w/o O2-Tachypneic, I&E Wheeze and flushed with SpO2 at 81%. Pt advised to keep NC in place but remains resistant to maintain supplemental O2. Pt refused neb tx. Pt advised to remain strict NPO
overnight d/t drowsiness & prior aspiration event.
Pt reassessed at 2029. Once again found to be hypoxic, tachypneic and SOB. O2 applied-SpO2 returned to 96%. Once again, pt advised to keep NC in place as he currently requires 4L O2 to maintain SpO2>94%.
During hourly rounds at 0340 after VS patient found w/o NC w/ SpO2 in 80s. Patient reminded to keep O2 on to prevent hypoxia-pt disinterested in learning & remains hesitant to tx.
At 0600-pt once again found w/o O2 & declined having AM lab work done. NC placed back on patient, hoarse voice quality, I&E wheeze and marked labored breathing.
[2025-07-16 07:38] LABS: Glucose - Point of Care 131 mg/dl (70-99)
[2025-07-16] MEDS: VENTOLIN NEBULES 2.5 MG INH (07:44)
[2025-07-16] MEDS: NOVOLOG FLEXPEN-LOW RESISTANCE SC ×2 (07:46→12:15)
[2025-07-16] MEDS: OCEAN, SALINE MIST 2 SPRAYS NASAL (08:43)
[2025-07-16] MEDS: XANAX 1 MG PO ×3 (08:44→21:37)
[2025-07-16] MEDS: DOLOPHINE 10 MG PO ×3 (08:44→21:37)
[2025-07-16] MEDS: DEPAKOTE (12 HR RELEASE) 750 MG PO ×2 (08:44→20:23)
[2025-07-16] MEDS: ZESTRIL 10 MG PO (08:44)
--- NOTE | 2025-07-16 10:23 | PTCARENOTE ---
Pt cooperative at this time for this RN. morning labs completed, pt now on humidified 4L and scheduled nebs. nasal spray prn order obtained and repeat chest xray ordered. pt stating he was told he was allowed to eat yesterday morning. NPO order was
in place per order history. pt educated to use incentive spirometer.
[2025-07-16 10:34] LABS: Hematocrit 38.7 % (39.0-52.0); Hemoglobin 12.5 g/dL (13.0-18.0); Mean Corp Hgb Conc. 32.3 g/dL (33.0-37.0); Mean Corpuscular Volume 88.8 fL (80.0-94.0); Platelet Count 215 10^3/uL (130-400); Red Cell Dist. Width 14.5 % (11.5-14.5)
--- NOTE | 2025-07-16 10:34 | W.PN.HOSP.TC ---
Today's Communication/Plan
-
Repeat two-view chest x-ray
Awaiting labs from this morning
Start bronchodilators
Wean oxygen as tolerated
If with severe leukocytosis may need to consider antibiotics
Assessment / Plan
Assessment / Plan
General: No Apparent Distress and Comfortable
HEENT: Normocephalic, Nose Appears Normal and Ears Appear Normal
Respiratory: Expiratory wheezing, oxygen 4 L noted
Cardiac: S1-S2 regular rhythm
GI: Nondistended
Neuro: Awake, Alert, Oriented, AO x 3 and Nonfocal/Grossly Intact; Negative Tremors
Psych: Calm; Negative Confused or Agitated
A/P: Patient is a 64y M with PMH significant for DDD, chronic pain syndrome / chronic opioid and BZD dependence who presents to ED fo evaluation after witnessed seizure-like activity this evening.
Grand mal seizures suspected secondary to benzo withdrawal
-CT imaging without any acute findings
-Recent MRI couple months ago showed no evidence of structural brain disease
-Neurology input noted
-Patient back on his home dose of benzos-Will need slow taper over weeks-defer to outpatient pain managmenet/psychiatry.
-States does not have Driving license as it was taken away long time ago.
Acute hypoxic respiratory failure likely secondary to aspiration pneumonitis versus pneumonia
- Wean oxygen as tolerated. Patient with expiratory wheezing started on bronchodilators
- Awaiting blood work. Repeat two-view chest x-ray
- Intermittently smokes cigar
Significant pauses longest being 6.4 seconds.
-Recent history of syncope noted.
-Monitor on tele
- Status post MRI compatible pacemaker implantation 07/15/2025
Chronic Pain Syndrome
Chronic Opioid Dependence
DDD
- Continue current methadone dosing.
- Follow-up with Pain Management as an outpatient.
- Would continue to hold his oxycodone. No signs of withdrawal so far
Anxiety / Depression
Chronic BZD Dependence
- Appreciate psychiatry input. Now started on Depakote 750mg BID. Seroquel dose decreased to 300mg qhs
DM-II
- A1C during last visit was 6.8%. Not currently on any medication.
- Follow glucose and cover with SSI if needed. POC am 131
- OP pcp f/u
DVT Prophylaxis: lovenox
Code Status: Full
Anticipated Discharge: 24 - 48 hours
Subjective/Interval History
-
Date of Service: July 16, 2025
Yesterday's events noted
Patient with episode of aspiration
States he had cookie yesterday morning but did not have breakfast
Currently on 4 L of oxygen
Objective Data
-
Labs:
Laboratory Results
07/16/25
09:58
WBC Pending
Hgb Pending
Hct Pending
Plt Count Pending
Sodium Pending
Potassium Pending
Chloride Pending
Carbon Dioxide Pending
BUN Pending
Creatinine Pending
Glucose Pending
Calcium Pending
Vital Signs:
Vital Signs
Temp Pulse Resp BP Pulse Ox
98.6 F 104 20 131/56 90
07/16/25 07:30 07/16/25 08:44 07/16/25 07:53 07/16/25 08:44 07/16/25 07:53
I&O
07/15/25 07/16/25 07/17/25
06:59 06:59 06:59
Intake Total 1200 / 1200
Output Total 750 / 750
Balance 1200 / 1200 -750 / -750
Data Reviewed
-
Total Time Spent with Patient (in minutes): 55
[2025-07-16 11:37] LABS: Blood Urea Nitrogen 24 mg/dl (9-20); Calcium 8.8 mg/dl (8.4-10.2); Chloride 104 mmol/L (98-107); Estimated Creatinine Clearance 69 ml/min; Glucose 168 mg/dl (70-99); Potassium 4.5 mmol/L (3.5-5.1); Sodium 136 mmol/L (135-145); eGFR > 60.00
[2025-07-16 11:38] LABS: Carbon Dioxide 24 mmol/L (22-30)
[2025-07-16] MEDS: DUONEB 3 ML INH ×3 (11:50→19:28)
--- NOTE | 2025-07-16 12:00 | W.PN.UPDATE ---
Update Note
Progress Note Update
patient seen chart reviewed. spoke with nursing. apparently patient aspirated during the implantion of pacer. he is very clear that 'someone' told him he could have breakfast since the procedure was later in the day. he is dismayed by the prospect
of needing to remain here for iv antibiotics. he was very honest in addressing his addictions issues in the past and his wish to find a way forward without or minimizing his pain meds. emphasized that it is important that his pain be tolerable..
did not make any changes in his psych meds. will leave that to out pt provider but i would suggest cymbalta and or gabapentin be considered perhaps ultimately to supplant the opiates he is taking and perhaps the xanax as well.
[2025-07-16] MEDS: STERILE WATER FOR INJECTION 10 ML IV (12:03)
[2025-07-16] MEDS: ROCEPHIN 1000 MG IV (12:03)
[2025-07-16] MEDS: FLAGYL 500 MG 100 IV ×2 (12:04→20:23)
[2025-07-16 12:13] LABS: Glucose - Point of Care 141 mg/dl (70-99)
--- NOTE | 2025-07-16 12:16 | W.PN.CD ---
Today's Communication / Plan
-
- PPM is stable
- PNA treatment as per primary team
Impression / Plan
-
I/P: 64M with chronic pain, migraines, dyslipidemia, type 2 diabetes, and recurrent syncope who presented to the emergency department with a chief complaint of seizure, found to have sinus pauses on telemetry.
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 Valentin
EP: Dr. Schwab
History of syncope with sinus pauses
- s/p PPM 07/15/25 - dual chamber Medtronic.
- Lead are in good position.
- Pocket is clear. No hematoma
- No PTX on CXR
Aspiration PNA
- Patient had aspiration when getting ready for the pacemaker int he lab.
- Patient vomited and had full gastric contents - He was not NPO
- Luckily the gastric contents were aspirated. He did have hypoxia but recovered.
- With his recovery, it was decided to proceed with pacemaker and PPM was implanted under antibiotics coverage.
- Antibiotics as per primary team.
Seizure
- Likely due to benzodiazepine withdrawal vs asystole.
- Continue divalproex per neurology
Chronic pain syndrome with opioid dependence
Benzodiazepine withdrawal
Type 2 diabetes mellitus, not on any current treatment, per primary service, HgbA1c 6.8%
Hypercholesterolemia, LDL 125, goal LDL should be <70 with his type 2 diabetes mellitus, refused statin
Depression and anxiety with associated substance abuse, psychiatry following
Current smoker, full cessation recommended
Subjective: Patient has no complaints.
Physical Exam
Vital Signs/Labs
Vital Signs
Temp Pulse Resp BP Pulse Ox
97.9 F 89 18 103/60 90
07/16/25 11:30 07/16/25 11:30 07/16/25 11:30 07/16/25 11:30 07/16/25 08:15
07/16/25 09:58
07/16/25 09:58
Magnesium 2.3 mg/dl (1.6-2.3) 07/13/25 07:35
Physical Exam
Constitutional: No acute distress and Comfortable
EENT: Anicteric and Moist mucous membranes
Cardiovascular: Rhythm & rate is regular, Pedal edema is absent and JVD pressure is normal
Respiratory: Respiratory effort normal and Lungs clear to auscul.
GI: Soft, Distention absent, Non tender and Normal bowel sounds
Neuro/Psych: Alert, Oriented and AO x 3
Other: Cardiac Device Site
Data Reviewed
-
Date of Service: July 16, 2025
Medical Decision Making: Reviewed Test Results, Test Interpretation and Review of Case with other Provider
EKG: Tracing Personally Visualized and interpreted
Echo: Report Reviewed by me
X-Ray/CT/US/MRI/NUC/PET: Image Personally Visualized and interpreted
Labs: Labs Reviewed by me
Old Records: Reviewed
--- NOTE | 2025-07-16 12:57 | CM ---
CM reviewed chart
Pt declined VN day prior per CM note
Pt remains on O2, not on O2 at home
CM will continue to follow for dc planning
Discharge Disposition- home, follow for O2 needs
[2025-07-16 15:43] LABS: Glucose - Point of Care 182 mg/dl (70-99)
[2025-07-16] MEDS: NOVOLOG FLEXPEN-LOW RESISTANCE 1 UNITS SC (17:04)
[2025-07-16] MEDS: TYLENOL 650 MG PO (17:05)
[2025-07-16] MEDS: SEROQUEL 300 MG PO (21:37)
[2025-07-16 21:40] LABS: Glucose - Point of Care 214 mg/dl (70-99)
[2025-07-17] VITALS (8 sets, daily range): BP systolic 90–138; BP diastolic 59–99; PULSE 90–95
[2025-07-17] MEDS: FLAGYL 500 MG 100 IV ×3 (04:02→20:04)
--- NOTE | 2025-07-17 07:26 | PTCARENOTE ---
0600: 88 Mcgs of Synthroid given to patient. OFFSHORING MANAGER and pharmacy notified. No new orders at this time. Patient updated.
[2025-07-17 07:46] LABS: Glucose - Point of Care 116 mg/dl (70-99)
[2025-07-17] MEDS: NOVOLOG FLEXPEN-LOW RESISTANCE SC ×3 (07:51→18:02)
[2025-07-17 07:55] LABS: Hematocrit 35.7 % (39.0-52.0); Hemoglobin 11.4 g/dL (13.0-18.0); Mean Corp Hgb Conc. 31.9 g/dL (33.0-37.0); Mean Corpuscular Volume 87.5 fL (80.0-94.0); Nucleated Red Blood Cells % 0 % (-); Platelet Count 159 10^3/uL (130-400); Red Cell Dist. Width 14.8 % (11.5-14.5)
[2025-07-17] MEDS: DUONEB 3 ML INH ×3 (07:55→15:08)
[2025-07-17 08:20] LABS: Blood Urea Nitrogen 20 mg/dl (9-20); Calcium 8.6 mg/dl (8.4-10.2); Carbon Dioxide 28 mmol/L (22-30); Chloride 104 mmol/L (98-107); Estimated Creatinine Clearance 84 ml/min; Glucose 115 mg/dl (70-99); Potassium 4.2 mmol/L (3.5-5.1); Sodium 135 mmol/L (135-145); eGFR > 60.00
--- NOTE | 2025-07-17 08:34 | W.PN.CD ---
Today's Communication / Plan
-
- Patient is stable from cardiac standpoint for discharge.
- Antibiotic treatment as per primary team.
- Please call with questions.
Impression / Plan
-
I/P: 64M with chronic pain, migraines, dyslipidemia, type 2 diabetes, and recurrent syncope who presented to the emergency department with a chief complaint of seizure, found to have sinus pauses on telemetry.
Primary rubber heel and sole press tender: Dr. Valentin
EP: Dr. Schwab
History of syncope with sinus pauses
- s/p PPM 07/15/25 - dual chamber Medtronic.
- Lead are in good position.
- Pocket is clear. No hematoma
- No PTX on CXR
- Avoid subcu heparin. Will discontinue.
- Ambulating and OOB. Low risk for DVT at this time.
Aspiration PNA
- Leukocytosis is improving. WBC went from 20.3-15.2 today.
- Patient had aspiration when getting ready for the pacemaker int he lab.
- Patient vomited and had full gastric contents - He was not NPO
- Luckily the gastric contents were aspirated. He did have hypoxia but recovered.
- With his recovery, it was decided to proceed with pacemaker and PPM was implanted under antibiotics coverage.
- Antibiotics as per primary team. Currently on ceftriaxone and metronidazole
Seizure
- Likely due to benzodiazepine withdrawal vs asystole.
- Continue divalproex per neurology
Chronic pain syndrome with opioid dependence
Benzodiazepine withdrawal
Type 2 diabetes mellitus, not on any current treatment, per primary service, HgbA1c 6.8%
Hypercholesterolemia, LDL 125, goal LDL should be <70 with his type 2 diabetes mellitus, refused statin
Depression and anxiety with associated substance abuse, psychiatry following
Current smoker, full cessation recommended
Subjective: Patient has no complaints.
Physical Exam
Vital Signs/Labs
Vital Signs
Temp Pulse Resp BP Pulse Ox
98.8 F 101 20 128/80 92
07/17/25 07:25 07/17/25 07:58 07/17/25 07:58 07/17/25 07:25 07/17/25 07:58
07/17/25 06:58
07/17/25 06:58
Magnesium 2.3 mg/dl (1.6-2.3) 07/13/25 07:35
Physical Exam
Constitutional: No acute distress and Comfortable
EENT: Anicteric and Moist mucous membranes
Cardiovascular: Rhythm & rate is regular, Pedal edema is absent and JVD pressure is normal
Respiratory: Respiratory effort normal, Lungs clear to auscul. and Wheeze Absent
GI: Soft, Distention absent, Non tender and Normal bowel sounds
Neuro/Psych: Alert, Oriented and AO x 3
Data Reviewed
-
Date of Service: July 17, 2025
Medical Decision Making: Reviewed Test Results, Test Interpretation and Review of Case with other Provider
EKG: Tracing Personally Visualized and interpreted
Echo: Report Reviewed by me
X-Ray/CT/US/MRI/NUC/PET: Image Personally Visualized and interpreted
Labs: Labs Reviewed by me
Old Records: Reviewed
[2025-07-17] MEDS: DEPAKOTE (12 HR RELEASE) 750 MG PO ×2 (08:56→20:05)
[2025-07-17] MEDS: XANAX 1 MG PO ×3 (08:56→21:15)
[2025-07-17] MEDS: ZESTRIL 10 MG PO (08:57)
[2025-07-17] MEDS: DOLOPHINE 10 MG PO ×3 (08:57→21:15)
--- NOTE | 2025-07-17 10:39 | W.PN.HOSP.TC ---
Today's Communication/Plan
-
Continue with bronchodilators
IV antibiotic
Encourage incentive spirometry use
Wean oxygen as tolerated
Assessment / Plan
Assessment / Plan
General: No Apparent Distress and Comfortable
HEENT: Normocephalic, Nose Appears Normal and Ears Appear Normal
Respiratory: Expiratory wheezing and rhonchi mild improvement, oxygen 4 L noted
Cardiac: S1-S2 regular rhythm
GI: Nondistended
Neuro: Awake, Alert, Oriented, AO x 3 and Nonfocal/Grossly Intact; Negative Tremors
Psych: Calm; Negative Confused or Agitated
A/P: Patient is a 64y M with PMH significant for DDD, chronic pain syndrome / chronic opioid and BZD dependence who presents to ED fo evaluation after witnessed seizure-like activity this evening.
Grand mal seizures suspected secondary to benzo withdrawal
-CT imaging without any acute findings
-Recent MRI couple months ago showed no evidence of structural brain disease
-Neurology input noted
-Patient back on his home dose of benzos-Will need slow taper over weeks-defer to outpatient pain managmenet/psychiatry.
-States does not have Driving license as it was taken away long time ago.
Acute hypoxic respiratory failure likely secondary to aspiration pneumonitis versus pneumonia
- Wean oxygen as tolerated. Patient with expiratory wheezing started on bronchodilators which is improving
- Cardiology correspondence noted and patient vomited full gastric contents while on the table to undergo pacemaker implantation.
- Intermittently smokes cigar
- Chest x-ray with bilateral parenchymal opacity likely represents bilateral pneumonia.
- Tolerating ceftriaxone and Flagyl. WBC downtrending
Significant pauses longest being 6.4 seconds.
-Recent history of syncope noted.
-Monitor on tele
-Status post MRI compatible pacemaker implantation 07/15/2025
Chronic Pain Syndrome
Chronic Opioid Dependence
DDD
- Continue current methadone dosing.
- Follow-up with Pain Management as an outpatient.
- Would continue to hold his oxycodone. No signs of withdrawal so far
Anxiety / Depression
Chronic BZD Dependence
- Appreciate psychiatry input. Now started on Depakote 750mg BID. Seroquel dose decreased to 300mg qhs
DM-II
- A1C during last visit was 6.8%. Not currently on any medication.
- Follow glucose and cover with SSI if needed. POC am 131
- OP pcp f/u
DVT Prophylaxis: SCDs only per cardiology has to discontinue chemical prophylaxis
Code Status: Full
Anticipated Discharge: > 48 hours
Subjective/Interval History
-
Date of Service: July 17, 2025
states of coughing
remains on 4L oxygen
Objective Data
-
Labs:
Laboratory Results
07/17/25
06:58
WBC 15.2 H
Hgb 11.4 L
Hct 35.7 L
Plt Count 159 D
Sodium 135
Potassium 4.2
Chloride 104
Carbon Dioxide 28
BUN 20
Creatinine 0.9
Glucose 115 H
Calcium 8.6
Vital Signs:
Vital Signs
Temp Pulse Resp BP Pulse Ox
98.8 F 101 20 128/80 92
07/17/25 07:25 07/17/25 08:57 07/17/25 07:58 07/17/25 08:57 07/17/25 07:58
I&O
07/16/25 07/17/25 07/18/25
06:59 06:59 06:59
Intake Total 1060 / 1060
Output Total 750 / 750
Balance -750 / -750 1060 / 1060
Data Reviewed
-
Total Time Spent with Patient (in minutes): 55
[2025-07-17] MEDS: STERILE WATER FOR INJECTION 10 ML IV (12:48)
[2025-07-17] MEDS: ROCEPHIN 1000 MG IV (12:48)
[2025-07-17 12:55] LABS: Glucose - Point of Care 133 mg/dl (70-99)
--- NOTE | 2025-07-17 15:18 | PTOTSP ---
Dysphagia Evaluation
Patient has acute dysphagia risk factors (i.e., history of seizures, AHRF secondary to aspiration pneumonitis vs PNA after episode of vomiting during pacemaker placement) but no known baseline dysphagia. Suspect oral/pharyngeal swallowing WFL based
on clinical bedside swallowing evaluation.
Recommend:
1. Regular, Thin liquids
2. Medications as best tolerated
3. General aspiration precautions
4. Will sign off at this time. If concerned for prandial aspiration could consider video swallow study though low suspicion for this.
--- NOTE | 2025-07-17 17:20 | CM ---
Chart reviewed; Anticipated Discharge >48 hours; Case Management will continue to monitor and support discharge planning as needed
[2025-07-17 17:55] LABS: Glucose - Point of Care 130 mg/dl (70-99)
[2025-07-17] MEDS: DUONEB INH (19:50)
[2025-07-17] MEDS: SEROQUEL 300 MG PO (21:15)
[2025-07-17 21:34] LABS: Glucose - Point of Care 132 mg/dl (70-99)
--- NOTE | 2025-07-17 22:08 | W.PN.UPDATE ---
Update Note
Progress Note Update
pt seen this evening, chart reviewed. slowly recovering from aspiration, though still in need of supplemental O2, voice addi. hoping to go home tomorrow; I encouraged him to use the blow bottles as directed. Pt asking about what he should do for
medication after he leaves hospital. He is aware of our recommendation that he wean himself from the large amounts of xanax and opioids which he is taking. Encouraged to contact current psychiatrist to discuss this recommendation with him. Mentions
that he has given him an ultimatum, insisting that he come off these medications.
[2025-07-18] VITALS (8 sets, daily range): BP systolic 99–147; BP diastolic 57–80; PULSE 89–96
[2025-07-18] MEDS: FLAGYL 500 MG 100 IV ×3 (03:37→20:22)
[2025-07-18] MEDS: DUONEB 3 ML INH ×3 (07:10→14:52)
[2025-07-18 07:53] LABS: Glucose - Point of Care 88 mg/dl (70-99)
[2025-07-18] MEDS: NOVOLOG FLEXPEN-LOW RESISTANCE SC ×3 (07:55→17:13)
[2025-07-18] MEDS: DEPAKOTE (12 HR RELEASE) 750 MG PO ×2 (07:56→20:22)
[2025-07-18] MEDS: DOLOPHINE 10 MG PO ×3 (07:56→22:23)
[2025-07-18] MEDS: XANAX 1 MG PO ×3 (07:56→20:22)
[2025-07-18] MEDS: ZESTRIL PO (07:57)
[2025-07-18 08:03] LABS: Hematocrit 30.2 % (39.0-52.0); Hemoglobin 10.3 g/dL (13.0-18.0); Mean Corp Hgb Conc. 34.1 g/dL (33.0-37.0); Mean Corpuscular Volume 84.6 fL (80.0-94.0); Nucleated Red Blood Cells % 0 % (-); Platelet Count 152 10^3/uL (130-400); Red Cell Dist. Width 14.9 % (11.5-14.5)
[2025-07-18 08:18] LABS: Blood Urea Nitrogen 24 mg/dl (9-20); Calcium 8.3 mg/dl (8.4-10.2); Carbon Dioxide 27 mmol/L (22-30); Chloride 105 mmol/L (98-107); Estimated Creatinine Clearance 76 ml/min; Glucose 75 mg/dl (70-99); Potassium 4.2 mmol/L (3.5-5.1); Sodium 136 mmol/L (135-145); eGFR > 60.00
--- NOTE | 2025-07-18 10:45 | W.PN.HOSP.TC ---
Addendum entered and electronically signed by Thad Iniguez MD 07/18/25 14:34:
Patient was reevaluated. Patient was sitting in an bed. Patient was making calls to family. Patient states he has a history of memory lapse in the past. Currently does not remember event from earlier today. After much discussion he remembers he
is still on oxygen which has improved to 2 L. He understand he still needs to stay in the hospital. Does stay memory labs event has happened to him in the past. Neuro awake alert oriented. Gait assessed without any weakness noted. Moving all 4
extremities. Extraocular muscles intact. Possibility of intermittent delirium could be multifactorial due to polypharmacy, hypoxemia and pneumonia. Will continue to monitor. Patient does need extensive neuropsych evaluation upon discharge. Plan
discussed with RN. Continue to monitor closely. Will add neurochecks x 24h
Original Note:
Today's Communication/Plan
-
Xanax dose may be adjusted per psych
Continue with IV antibiotics ceftriaxone and Flagyl. Patient tolerating well
Wean oxygen as tolerated
Encourage incentive spirometry
Leukocytosis improving
Assessment / Plan
Assessment / Plan
General: No Apparent Distress and Comfortable
HEENT: Normocephalic, Nose Appears Normal and Ears Appear Normal
Respiratory: Rhonchi noted. No diffuse exp wheezing. better aeration, just weaned down to 3L
Cardiac: S1-S2 regular rhythm
GI: Nondistended
Neuro: Awake, Alert, Oriented, AO x 3 and Nonfocal/Grossly Intact; Negative Tremors
Psych: Calm; Negative Confused or Agitated
A/P: Patient is a 64y M with PMH significant for DDD, chronic pain syndrome / chronic opioid and BZD dependence who presents to ED fo evaluation after witnessed seizure-like activity this evening.
Grand mal seizures suspected secondary to benzo withdrawal
-CT imaging without any acute findings
-Recent MRI couple months ago showed no evidence of structural brain disease
-Neurology input noted
-Patient back on his home dose of benzos-Will need slow taper over weeks-defer to outpatient pain management/psychiatry. Psych to decrease Xanax dose
-Was started on Depakote 750 mg twice daily. Continue until outpatient neurology evaluation as risk that patient may have ran out of Xanax again with risk of withdrawal seizure. If no further event then can eventually be discontinued
-States does not have Driving license as it was taken away long time ago.
Acute hypoxic respiratory failure likely secondary to aspiration pneumonitis versus pneumonia
- Wean oxygen as tolerated. O2 at 3 L. Continue to wean as tolerated.
- Cardiology correspondence noted and patient vomited full gastric contents while on the table to undergo pacemaker implantation.
- Intermittently smokes cigar
- Chest x-ray with bilateral parenchymal opacity likely represents bilateral pneumonia.
- Tolerating ceftriaxone and Flagyl. WBC downtrending
Significant pauses longest being 6.4 seconds.
-Recent history of syncope noted.
-Monitor on tele
-Status post MRI compatible pacemaker implantation 07/15/2025
Chronic Pain Syndrome
Chronic Opioid Dependence
DDD
- Continue current methadone dosing.
- Follow-up with Pain Management as an outpatient.
- Oxycodone on hold for now. Depending on situation may need to be started however I would like to continue to hold.
Anxiety / Depression
Chronic BZD Dependence
- Appreciate psychiatry input. Now started on Depakote 750mg BID. Seroquel dose decreased to 300mg qhs
DM-II
- A1C during last visit was 6.8%. Not currently on any medication.
- Follow glucose and cover with SSI if needed. POC am 81
- OP pcp f/u
DVT Prophylaxis: SCDs only per cardiology has to discontinue chemical prophylaxis
Code Status: Full
Anticipated Discharge: 24 - 48 hours
Subjective/Interval History
-
Date of Service: July 18, 2025
BP on lower side
states improvement in breathing
having productive cough
just weaned down to 3L
Objective Data
-
Labs:
Laboratory Results
07/18/25
06:38
WBC 11.0 H
Hgb 10.3 L
Hct 30.2 L
Plt Count 152
Sodium 136
Potassium 4.2
Chloride 105
Carbon Dioxide 27
BUN 24 H
Creatinine 1.0
Glucose 75
Calcium 8.3 L
Vital Signs:
Vital Signs
Temp Pulse Resp BP Pulse Ox
98 F 81 16 99/57 93
07/18/25 07:00 07/18/25 07:57 07/18/25 07:14 07/18/25 07:57 07/18/25 09:56
I&O
07/17/25 07/18/25 07/19/25
06:59 06:59 06:59
Intake Total 1060 / 1060 1420 / 1420 480 / 480
Balance 1060 / 1060 1420 / 1420 480 / 480
Data Reviewed
-
Total Time Spent with Patient (in minutes): 55
--- NOTE | 2025-07-18 10:48 | W.PN.UPDATE ---
Update Note
Progress Note Update
patient seen chart reviewed. spoke with nursing. spoke with dr osman. patient continues with recovery from aspiration. he is disappointed he is unable to be dc today as still requiring oxygen to maintain adequate oxygenation. his speech seemed to
me to be a bit slurred today. not clear why and maybe he was a tad less sharp cognitively than i have found him to be in the past although still able to carry on a reasonable conversation. he had spoken to dr ibarra yesterday with whom i conferred
earlier today and they talked about the conversation he needs to have with his prescriber. he did not seem to remember much about this. we talked again about the need for hiim to achieve adequate pain control with minimal controlled substances and
to take meds as prescribed. will begin to taper the xanax at this point although minimally. will reduce am xanax to 0.75 instead of one mg and continue with one mg in the afternoon and hs. he is not sleeping bc pain. discussed with him gabapentin
300 mg q hs but of course this too could be abused and it was discussed with him. gabapentin could be used for pain relief instead of other even more addicting drugs half-way as might cymbalta which i had discussed with him.
[2025-07-18] MEDS: STERILE WATER FOR INJECTION 10 ML IV (11:13)
[2025-07-18] MEDS: ROCEPHIN 1000 MG IV (11:13)
[2025-07-18 11:59] LABS: Glucose - Point of Care 134 mg/dl (70-99)
--- NOTE | 2025-07-18 14:24 | W.PN.UPDATE ---
Update Note
Progress Note Update
returned to see patient and possibly talk to . patient seemed to be confused. he told me he was going home this afternoon. i asked him if he could remember this am when dr osman, his nurse aliyah and i met with him and discussed that he would not
be able to go home today. indeed he could not remember that we had met. texted dr osman to apprise and he is coming to see patient. the only psych med change i made (to decrease xanax by o.25 mg would not even take effect until tomorrow.
--- NOTE | 2025-07-18 15:22 | CM ---
F/U: Spoke with Hospitalist who said that patient is ambulatory in the room so likely no VN/PT or SNF needs. Patient still on IV antibiotics ceftriaxone and Flagyl and on O2, which no indication he is on at home so have to watch for this. PLAN:
Anticipate Home No Needs.
--- NOTE | 2025-07-18 16:29 | PTCARENOTE ---
Patient weaned to RA per resp, POX 98% on ear when taken by tech for 1500 vitals. Patient states no concerns at this time, MD made aware. Patient AAOX3 but forgetful, ambulatory in room with steady gait, ringing appropriately. COWS and neurochecks
in place per order and WNL.
[2025-07-18 17:07] LABS: Glucose - Point of Care 99 mg/dl (70-99)
[2025-07-18] MEDS: DUONEB INH (19:33)
[2025-07-18] MEDS: TYLENOL 650 MG PO (20:27)
[2025-07-18 21:41] LABS: Glucose - Point of Care 239 mg/dl (70-99)
[2025-07-18] MEDS: SEROQUEL 300 MG PO (22:24)
[2025-07-19 03:11] VITALS: BP 114/63
[2025-07-19] MEDS: FLAGYL 500 MG 100 IV ×2 (03:58→12:46)
[2025-07-19 07:00] VITALS: BP 109/64
[2025-07-19 07:18] LABS: Hematocrit 32.8 % (39.0-52.0); Hemoglobin 10.7 g/dL (13.0-18.0); Mean Corp Hgb Conc. 32.6 g/dL (33.0-37.0); Mean Corpuscular Volume 86.5 fL (80.0-94.0); Nucleated Red Blood Cells % 0 % (-); Platelet Count 195 10^3/uL (130-400); Red Cell Dist. Width 15.1 % (11.5-14.5)
[2025-07-19] MEDS: DUONEB 3 ML INH ×2 (07:33→11:36)
[2025-07-19] MEDS: XANAX 0.75 MG PO (08:25)
[2025-07-19 08:28] LABS: Glucose - Point of Care 92 mg/dl (70-99)
[2025-07-19] MEDS: NOVOLOG FLEXPEN-LOW RESISTANCE SC (08:31)
[2025-07-19] MEDS: DOLOPHINE 10 MG PO (08:32)
[2025-07-19] MEDS: ZESTRIL 10 MG PO (08:32)
[2025-07-19] MEDS: DEPAKOTE (12 HR RELEASE) 750 MG PO (08:32)
--- NOTE | 2025-07-19 12:12 | W.PN.HOSP.TC ---
Today's Communication/Plan
-
P.o. antibiotic
Encourage I-S use at home
Outpatient cardiology follow-up
Assessment / Plan
Assessment / Plan
General: No Apparent Distress and Comfortable
HEENT: Normocephalic, Nose Appears Normal and Ears Appear Normal
Respiratory: Rhonchi noted. No diffuse exp wheezing. better aeration, just weaned down to 3L
Cardiac: S1-S2 regular rhythm
GI: Nondistended
Neuro: Awake, Alert, Oriented, AO x 3 and Nonfocal/Grossly Intact; Negative Tremors
Psych: Calm; Negative Confused or Agitated
A/P: Patient is a 64y M with PMH significant for DDD, chronic pain syndrome / chronic opioid and BZD dependence who presents to ED fo evaluation after witnessed seizure-like activity this evening.
Grand mal seizures suspected secondary to benzo withdrawal
-CT imaging without any acute findings
-Recent MRI couple months ago showed no evidence of structural brain disease
-Neurology input noted
-Patient back on his home dose of benzos-Will need slow taper over weeks-defer to outpatient pain management/psychiatry. Psych to decrease Xanax dose
-Was started on Depakote 750 mg twice daily. Continue until outpatient neurology evaluation as risk that patient may have ran out of Xanax again with risk of withdrawal seizure. If no further event then can eventually be discontinued
-Per patient- He was to due renew his license which he never did. Pt was still reported to [facility] online per the law.
Acute hypoxic respiratory failure likely secondary to aspiration pneumonitis versus pneumonia
- Patient stable on room air. Did not qualify for home oxygenation.
- Cardiology correspondence noted and patient vomited full gastric contents while on the table to undergo pacemaker implantation.
- Intermittently smokes cigar
- Chest x-ray with bilateral parenchymal opacity likely represents bilateral pneumonia.
- Tolerating ceftriaxone and Flagyl. Switch to p.o. on discharge. Leukocytosis resolved.
Significant pauses longest being 6.4 seconds.
-Recent history of syncope noted.
-Monitor on tele
-Status post MRI compatible pacemaker implantation 07/15/2025
Chronic Pain Syndrome
Chronic Opioid Dependence
DDD
- Continue current methadone dosing.
- Follow-up with Pain Management as an outpatient.
- Oxycodone on hold for now. Depending on situation may need to be started however I would like to continue to hold.
Anxiety / Depression
Chronic BZD Dependence
- Appreciate psychiatry input. Now started on Depakote 750mg BID. Seroquel dose decreased to 300mg qhs
DM-II
- A1C during last visit was 6.8%. Not currently on any medication.
- Follow glucose and cover with SSI if needed. POC am 81
- OP pcp f/u
DVT Prophylaxis: SCDs only per cardiology has to discontinue chemical prophylaxis
Code Status: Full
More than 30 minutes spent in discharge including
Final examination of the patient
Summarizing hospital stay
Instructions for continuing care to all relevant caregivers
Preparation of discharge records, prescriptions, and referral forms
Total time spent (in minutes): 53
Anticipated Discharge: Today
Subjective/Interval History
-
Date of Service: July 19, 2025
feeling better
on room air
Objective Data
-
Labs:
Laboratory Results
07/19/25
06:47
WBC 10.5
Hgb 10.7 L
Hct 32.8 L
Plt Count 195 D
Vital Signs:
Vital Signs
Temp Pulse Resp BP Pulse Ox
97.9 F 79 18 109/64 96
07/19/25 07:00 07/19/25 07:35 07/19/25 07:35 07/19/25 07:00 07/19/25 12:08
I&O
07/18/25 07/19/25 07/20/25
06:59 06:59 06:59
Intake Total 1420 / 1420 1820 / 1820
Balance 1420 / 1420 1819
--- NOTE | 2025-07-19 12:18 | W.DCSUMMARY ---
Discharge Summary
Discharge Data
Date of Admission: 07/12/25
Date of Discharge: 07/19/25
-
Pending Results: No
Hospital Course
64y M with PMH significant for DDD, chronic pain syndrome / chronic opioid and BZD dependence who presents to ED fo evaluation after witnessed seizure-like activity. Per spouse patient take Xanax 1 mg 3 times daily however at times with
increased anxiety takes multiple pills then recommended by physician. Underwent CT of the head without any acute finding. EEG was consistent with epileptiform activity. Patient was started on Keppra initially. Neurology and psychiatry were
consulted. Recommendation was to start patient on Depakote. Patient mentation slowly started to improve. Patient was also having sinus pauses. Cardiology was consulted. Patient underwent pacemaker implantation. Patient was doing well on
Depakote and reinitiation of Xanax. While undergoing pacemaker implantation procedure patient had episode of severe aspiration. Per cardiology correspondence gastric contents were noted and patient did admit to eating cookies at 6:30 AM on the day
of the procedure later on. Patient was stabilized and he did undergo pacemaker implantation. Postprocedure patient had rapid response with increasing oxygenation requirement. Patient was kept n.p.o. and his oxygenation status slowly started to
improve. Chest x-ray with bilateral pneumonia. Patient was started on IV antibiotics ceftriaxone and Flagyl. Patient with severe leukocytosis which resolved. Patient oxygen status slowly started to improve. Patient was weaned off oxygen to room
air. Patient did not qualify for home oxygenation. Seroquel dose was decreased. Oxycodone was discontinued patient ran out of Xanax and his next appointment with his physician is not until 07/29/2025 and he was given prescription for Xanax.
Seroquel dose was decreased. All medication changes were discussed with patient's spouse over the phone. Patient be discharged home recommendation to follow-up with the primary doctor psychiatrist and Dr. Mayfield.
Discharge Plan
-
Patient Disposition: Home (Routine Discharge)
Discharge Diagnosis/Procedures: Grand mal seizures suspect secondary to benzo diazepam withdrawal
Syncope (passing out) with bradycardia/pauses, s/p Pacemaker implant (07/15)
Acute hypoxic respiratory failure secondary to aspiration pneumonia and suspected pneumonitis
Condition: Fair
Diet: Regular
Activity: As tolerated
Driving Restrictions: No driving
Instructions: Seizures
Stand Alone Forms: DC Inst - Implanted Device, Return to Work
Referrals:
[facility]- [facility] [Provider Group] - 07/22/25 1:20 pm
Referral Note: Post device incision check appointment
Mona Lee CRNP [Specified Professional Personl, Cardiology] - 08/28/25 10:40 am
Jarrett Snyder MD [Active, Neurology] - in two to three weeks
Referral Note: Follow-up for seizure. Can discuss about Depakote which can eventually discontinued defer to neurologist.
Saumya Hdez PA-C [Family Provider, Family Practice] - in less than 1 week
Additional Discharge Medication Instructions: Oxycodone was discontinued.
Seroquel dose was decreased to 300 mg nightly
Prescriptions:
New
divalproex 250 mg Tablet,Delayed Release (Dr/Ec)
750 mg PO BID Qty: 60 0RF
quetiapine [Seroquel] 300 mg tablet
300 mg PO HS Qty: 30 0RF
cefdinir 300 mg capsule
300 mg PO BID Qty: 6 0RF
metronidazole 500 mg tablet
500 mg PO TID Qty: 12 0RF
Continued
methadone 10 MG tablet
10 mg PO TID
acetaminophen [Tylenol] 325 mg Tablet
650 mg PO Q6HPRN PRN (Reason: mild pain)
lisinopril 10 mg Tablet
10 mg PO DAILY
alprazolam [Xanax] 1 mg Tablet
1 mg PO TID 10 Days Qty: 30 0RF
Discontinued
oxycodone 20 mg Tablet
20 mg PO TID
quetiapine [Seroquel] 400 mg Tablet
400 mg PO HS
Discharge Orders:
Discharge Patient (As Directed); Ordered 07/19/25
Ordered By: hTad Iniguez
Discharge Date and Time
Print Language: [place]
[2025-07-19] MEDS: ROCEPHIN 1000 MG IV (12:46)
[2025-07-19] MEDS: STERILE WATER FOR INJECTION 10 ML IV (12:46)
[2025-07-19 12:50] VITALS: BP 147/63
--- NOTE | 2025-07-19 12:55 | W.[place]-PDMP ---
[place]-PD[place]
-
Checked the [place]- Prescription Drug Monitoring Program website, no red flags identified; safe to proceed with prescription.
Patient ran out of Xanax prior to arrival leading to seizure. This was discussed with patient's spouse who stated patient has appointment with Dr. Mayfield on 07/29/25. Patient will require Xanax up until outpatient evaluation. Patient has
methadone. Did state to spouse that oxycodone was discontinued. Also mention his positive Seroquel dose was decreased.
--- NOTE | 2025-07-19 12:56 | CM ---
CM reviewed chart, patient seen bedside, for d/c today.
Patient denies needs from CM.
IMM verbally reviewed, provided, placed in chart.
Patient confirms transport home.
CM will continue to follow.
Plan; home no needs
--- NOTE | 2025-07-19 22:20 | W.PN.UPDATE ---
Update Note
Progress Note Update
pt seen early afternoon to assess cognitive impairment, willingness to wean from many psychotropic agents, and appropriateness for discharge.
Pt announce that he is going home today even if he needs to sign himself out. No longer dependent on supplemental oxygen says feeling better. Worried about what he should do about the many medications he has been taking prescribed by Dr. Khalil,
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 Again says he'll just stop them all, again I tell him this is not safe. Pt called and we spoke all together on speakerphone. demonstrates
a good understanding of the situation and willingness to assist him. She he has an appt on Jul [address] Khalil, but will need meds to last until then. will be asking her insurer for names of psychiatrists or dispute specialist or pain
specialist to help with pt post hospital.
== END 2025-07-19 14:39 | disposition home or self-care (01) | DRG 981 ==
LOC: 2 NORTH 07:01
PROVIDERS: Internal Medicine; Internal Medicine Cardiovascular Disease; Psychiatry & Neurology Psychiatry; Student in an Organized Health Care Education/Training Program; ADMITTING PHYSICIAN Hospitalist; ATTENDING PHYSICIAN Hospitalist; CONSULT PHYSICIAN Psychiatry & Neurology Neurology; CONSULT PHYSICIAN Psychiatry & Neurology Psychiatry; CONSULT PHYSICIAN Student in an Organized Health Care Education/Training Program; EMERGENCY PHYSICIAN Emergency Medicine; FAMILY PHYSICIAN Physician Assistant Medical
PROC: 3E0102A Introduction of Anti-Infective Envelope into Subcutaneous Tissue, Open Approach (ICD-10-PCS; 2025-07-15)
PROC: 02H63JZ Insertion of Pacemaker Lead into Right Atrium, Percutaneous Approach (ICD-10-PCS; 2025-07-15)
PROC: 0JH606Z Insertion of Pacemaker, Dual Chamber into Chest Subcutaneous Tissue and Fascia, Open Approach (ICD-10-PCS; 2025-07-15)
PROC: 02HK3JZ Insertion of Pacemaker Lead into Right Ventricle, Percutaneous Approach (ICD-10-PCS; 2025-07-15)
DX: F13.239 Sedative, hypnotic or anxiolytic dependence with withdrawal, unspecified (principal); J69.0 Pneumonitis due to inhalation of food and vomit; J96.01 Acute respiratory failure with hypoxia; F11.20 Opioid dependence, uncomplicated; G40.409 Other generalized epilepsy and epileptic syndromes, not intractable, without status epilepticus; F17.200 Nicotine dependence, unspecified, uncomplicated; R41.3 Other amnesia; M50.10 Cervical disc disorder with radiculopathy, unspecified cervical region; G89.4 Chronic pain syndrome; G43.909 Migraine, unspecified, not intractable, without status migrainosus; F41.9 Anxiety disorder, unspecified; I10 Essential (primary) hypertension; E11.9 Type 2 diabetes mellitus without complications; G47.33 Obstructive sleep apnea (adult) (pediatric); E78.00 Pure hypercholesterolemia, unspecified; F32.A Depression, unspecified; I45.5 Other specified heart block; Z96.82 Presence of neurostimulator; Z98.1 Arthrodesis status; Z90.49 Acquired absence of other specified parts of digestive tract; Z88.0 Allergy status to penicillin; Z79.899 Other long term (current) drug therapy
CPT/HCPCS: 33208; 70450; 71045; 71046; 80048; 80053; 80164; 80306; 80307; 82248; 82962; 83036; 83735; 84100; 84443; 85025; 85027; 92610; 93005; 94640; 95813; 96374; 99285; C1785; C1887; C1898; Q9967